=== PATIENT | male | born 1950 | race Caucasian/White ===

== ENCOUNTER 2019-09-20 10:06 | Outpatient (CLI) | payer MEDICARE, OTHER, SELFPAY ==
--- NOTE | 2019-09-20 10:18 | MR_ITS ---
WS: [id number] MRI LUMBAR SPINE WITH AND WITHOUT CONTRAST. HISTORY: Increasing lumbar pain since surgery April 2019. Status post LEFT L4-5 and L5-S1 hemilamin otomy, discectomy and foraminotomy. COMPARISON: 12/22/2018 TECHNIQUE: Sagittal and axial multisequence imaging is submitted. Sagittal and axial T1 fat sat seque nces post-ProHance 17 cc IV. Posterior lumbar alignment is negative. Advanced degenerative disc disease at L4-5 and L5-S1. There i s postoperative marrow edema along the endplates of L4 and L5. Postsurgical changes are noted in the paraspinal soft tissues at L4-5 and L5-S1. Conus terminates normally at L1. L1-L2: Mild facet joint arthropathy. No significant stenosis. L2-L3: Mild osteophytic ridging and annular disc bulging with mild ligamentum flavum arthropathy and facet arthropathy. Mild RIGHT foraminal narrowing. No significant stenosis. L3-L4: Asymmetric disc bulging and osteophytic ridging. RIGHT central, subarticular and foraminal dis c protrusions contacting the thecal sac and the nerve root. Complete obscuration of fat in the RIGHT foramen. There is mild central with moderate to severe RIGHT subarticular and RIGHT foraminal stenosi s. Similar to the prior study. Only mild narrowing of the LEFT foramen. L4-L5: There is a large extruded disc causing significant deformity of the thecal sac and the nerve r oots is complete obliteration of the fat in the LEFT subarticular recess and foramen. Disc measures 1 .9 cm superior inferior and 1.7 cm transversely. Disc is increased since the prior study. On the post contrast images there is peripheral enhancement with nonenhancement centrally. Severe subarticular re cess and LEFT foraminal stenosis. Mild RIGHT foraminal stenosis. L5-S1: Osteophytic ridging and diffuse annular disc bulging. RIGHT paracentral disc protrusion does n ot enhance. This protrusion abuts but does not displace the RIGHT S1 nerve root. There is additional soft tissue with enhancement in the LEFT paraspinal soft tissues. The LEFT S1 nerve root enhances. Postoperative enhancement in the soft tissues on the LEFT at L4-5 and L5-S1. No abscess is identified . Left-sided laminectomy defects at L4-5 are noted. MR/MR lumbar spine wo/w con [id number] IMPRESSION: 1. L4-5 and L5-S1 postsurgical changes are new since 12/22/2018. No epidural ab scess. 2. New, large extruded disc at L4-5 on the LEFT measures 1.9 x 1.7 cm with ext ension into the LEFT subarticular recess and foramen with severe stenosis. 3. No change in the RIGHT paracentral disc protrusion at L5-S1. 4. Mild enhancement of the LEFT S1 nerve root. 5. Moderate to severe RIGHT subarticular and RIGHT foraminal stenosis at L3-4 due to combination of disc disease and osteophytes. No interval change.
[2019-09-20 10:56] LABS: Blood Urea Nitrogen 6 mg/dL (8-23); Glomerular Filtration Rate 74.5 mL/min (90-130)
--- NOTE | 2019-09-20 11:00 | XR_ITS ---
WS: [id number] LATERAL LUMBAR SPINE: 3 view. Lateral radiographs are performed in upright neutral, flexion and extension to the patient's toleranc e. HISTORY: lumbar pain COMPARISON: 04/07/2019 Posterior lumbar alignment is normal. Moderate disc space narrowing from L3-4 to L5-S1 with osteophyt es and facet arthropathy. With flexion and extension no instability. XR/XR lumbar spine f/e only [id number] IMPRESSION: 1. No lumbar spine instability. 2. Advanced spondylosis from L3-4 to L5-S1.
== END 2019-09-20 10:07 | disposition home or self-care (01) ==
LOC: RADWPI 10:13
PROVIDERS: Family Provider Internal Medicine; PCP Internal Medicine; Visit Provider Specialist
DX: M47.896 Other spondylosis, lumbar region (principal); M96.1 Postlaminectomy syndrome, not elsewhere classified; M54.5 Low back pain
CPT/HCPCS: 72120; 72158; 82565; 84520; A9579

== ENCOUNTER 2019-10-03 15:45 | Observation (INO) | payer MEDICARE, OTHER, SELFPAY ==
[2019-09-30 10:19] VITALS: BMI 32.3
[2019-09-30 10:49] LABS: Anion Gap 15.3 (5-19); Blood Urea Nitrogen 13 mg/dL (8-23); Calcium 9.1 mg/dL (8.5-10.5); Carbon Dioxide 30 mmol/L (22-29); Chloride 96 mmol/L (98-107); Glomerular Filtration Rate 84.2 mL/min (90-130); Glucose 110 mg/dL (65-115); Osmolality Calculated 283 mOsm/kg (285-295); Potassium 3.3 mmol/L (3.5-5.1); Sodium 138 mmol/L (136-145)
[2019-10-03] VITALS (12 sets, daily range): BP systolic 95–140; BP diastolic 53–92; PULSE 64–84; RESP 13–22; TEMP 36.3–37.2; O2SAT 89–98
[2019-10-03] MEDS: sodium chloride 0.9% 1,000 ML 30 ML IV (11:19)
--- NOTE | 2019-10-03 11:33 | P.ANESASSM_ITS ---
Pre-Anesthetic Assessment Pre-Anesthetic Assessment: Height/Weight: Height 1.78 m Weight 102.058 kg Temp Pulse Resp BP Pulse Ox 98.9 F 66 18 140/92 98 10/03/19 11:08 10/03/19 11:08 10/03/19 11:08 10/03/19 11:08 10/03/19 11:08 Preop Diagnosis: Lumbar disc displacement, with radiculopathy Proposed Procedure: Operation Date: 10/03/19 12:20 Proposed Procedures p Right L3-L4 and re-exploration of Left L4-L5 Lumbar Laminotomy Foraminotomy Discectomy 47279 M51.16(Bilateral) - Gonzalo Rodas MD Was Beta Nicola taken within 24 hours: Yes Last intake: Intake Last Liquid Date 10/02/19 Last Liquid Time 21:00 Last Solid Date 10/02/19 Last Solid Time 20:30 Social: Social History: Alcohol and Tobacco Exam: Pre-Anes Outpt Exam: alert, oriented x 3, clear to auscultation bilaterally and regular rate & rhythm Airway: Submandibular: WNL Cervical ROM: Other (Slightly limited secondary to previous surgery) MP: 2 Additional comments: Very poor dentition, several missing and chipped, #25 loose Pulmonary: Pulmonary: COPD CV/HEM: CV/HEM: CAD and HTN : Comments: stones Hepatic: Hepatic: None reported GI: GI: None reported Metabolic: Metabolic: DM Musc/skel: Musc/skel: Lower Back Pain Neuropsych: Neuropsych: None reported Anesthetic Plan: ASA status: 3 Anesthesia: General Risk of > 500 ml blood loss (7ml/kg in children): Yes, adequate IV access and fluids planned Meds/Allergies Current Medications: Current Medications Generic Name Dose Route Start Last Admin Trade Name Freq PRN Reason Stop Dose Admin Sodium Chloride 1,000 mls @ 30 ml s/hr 10/03/19 10:30 10/03/19 11:19 Sodium Chloride 0.9% IV 10/04/19 10:29 30 mls/hr .Q24H THA Administration PFSH Anesthesia PFSH: Social History (Updated 09/28/19 @ 15:37 by HAYDEE Lezama) Smoking and tobacco status: never smoked Second hand smoke exposure: No Alcohol intake: current Alcohol intake frequency: holidays/special occasions on ly Lives independently: Yes Household members: spouse Marital status: Current occupational status: retired History of recent travel: No Data Anesthesia CBC & Chem 7: 09/30/19 10:25 Cardiac Studies: No Data to Display
--- NOTE | 2019-10-03 11:54 | P.HPUD_ITS ---
Surgery/Procedure H&P Update DATE OF PROCEDURE: October 03, 2019 DATE H&P PERFORMED: 09/28/19 H&P UPDATE INFORMATION: I have reviewed H&P completed within last 30 days and H&P is in [facility] EMR on date indicated PREOP DIAGNOSIS: Lumbar disc displacement, with radiculopathy PRIMARY INDICATION FOR PROCEDURE: pain, nerve impingement PLANNED PROCEDURE: Operation Date: 10/03/19 12:20 Proposed Procedures Right L3-L4 and re-exploration Left L4-L5 Lumbar Laminotomy Foraminotomy Discectomy 80586 M51.16(Bilateral) - Gonzalo Rodas MD
--- NOTE | 2019-10-03 12:23 | P.OP_ITS ---
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
--- NOTE | 2019-10-03 12:27 | XRR_ITS ---
PROCEDURE INFORMATION: Exam: XR Spine, 1 view; Lumbar Exam date and time: 10/03/2019 12:50 PM Age: 69 years old Clinical indication: Condition or disease; Condition/disease: Localization in surgery TECHNIQUE: Imaging protocol: XR of the spine, 1 view. Exam focused on the lumbar spine. COMPARISON: CR XR lumbar spine f/e only [id number] 09/20/2019 11:22 AM FINDINGS: Vertebrae: Moderate L3-L4 and L4-L5, severe posterior L5-S1 disc narrowing. Lumbar spine vertebral body marginal osteophytes are noted at multiple levels. Posterior marker at the tip of the L3 spinous process. Soft tissues: Normal. XR/XR lumbar spine 1V port [id number] IMPRESSION: Posterior marker at the tip of the L3 spinous process.
--- NOTE | 2019-10-03 13:11 | XRR_ITS ---
PROCEDURE INFORMATION: Exam: XR Spine, 1 view; Lumbar Exam date and time: 10/03/2019 1:24 PM Age: 69 years old Clinical indication: Condition or disease; Condition/disease: Localization in surgery TECHNIQUE: Imaging protocol: XR of the spine, 1 view. Exam focused on the lumbar spine. COMPARISON: CR XR lumbar spine 1V port [id number] 10/03/2019 12:36 PM FINDINGS: Vertebrae: Surgical instrument at the inferior margin of the lamina of L3. Soft tissues: Posterior surgical retractor. XR/XR lumbar spine 1V port [id number] IMPRESSION: Surgical instrument at the inferior margin of the lamina of L3.
--- NOTE | 2019-10-03 13:51 | SUR.OPER ---
Family Notified Of Patient's Status Via Phone.
--- NOTE | 2019-10-03 14:05 | XRR_ITS ---
PROCEDURE INFORMATION: Exam: XR Spine, 1 view; Lumbar Exam date and time: 10/03/2019 2:14 PM Age: 69 years old Clinical indication: Condition or disease; Condition/disease: Localization in surgery TECHNIQUE: Imaging protocol: XR of the lumbar spine, single lateral view. Exam focused on the lumbar spine. COMPARISON: CR XR lumbar spine 1V port [id number] 10/03/2019 1:11 PM FINDINGS: Vertebrae: The surgical instrument marker is in the L4-L5 interlaminar space. Soft tissues: Posterior surgical retractor and surgical gauze XR/XR lumbar spine 1V port [id number] IMPRESSION: The surgical instrument marker is in the L4-L5 interlaminar space.
--- NOTE | 2019-10-03 15:19 | SUR.PHASEI ---
1518 PATIENT TO PACU AT THIS TIME. RR EVEN AND UNLABORED. SPO2 96% ON RA. PATIENT DENIES PAIN. DRESSING TO LOWER BACK, CDI.
--- NOTE | 2019-10-03 15:48 | SUR.PHASEI ---
1536 PATIENT TO MED SURG. DENIES PAIN, DRESSING TO LOWER BACK, CDI. PATIENT AMBULATORY FROM [facility] TO MED SURG BED WITH STEADY GAIT.
--- NOTE | 2019-10-03 16:03 | PM.PACU ---
PACU note Post-Anesthesia Exam: awake and vital signs stable Disposition: admitted
--- NOTE | 2019-10-03 17:54 | PM.PN ---
Subjective Subjective: Interval history: Doing well, with relief of lower extremity pain reported. Vitals/I&O/Wt Last Vital Signs Temp 97.4 F L 10/03/19 16:03 Pulse 68 10/03/19 17:34 Resp 18 10/03/19 17:25 BP 113/70 10/03/19 16:03 Pulse Ox 95 10/03/19 17:25 10/03/19 10/03/19 10/03/19 06:59 14:59 22:59 Intake Total 500 / 500 Output Total 100 / 100 Balance 400 / 400 Physical Exam Const: COMMON NORMALS: no apparent distress GENERAL APPEARANCE: cooperative and comfortable Neck/C-Spine: COMMON NORMALS: supple and no JVD Resp: COMMON NORMALS: normal respiratory effort EFFORT & INSPECTION: Yes able to speak in complete sentences, No tachypneic and No respiratory distress Cardio: COMMON NORMALS: no JVD Neuro: MOTOR EXAM: strength 5/5 throughout (Bilateral lower extremities) Psych: COMMON NORMALS: mental status grossly normal and speech normal ATTITUDE: Yes calm and Yes engaged ACTIVITY/MOTOR BEHAVIOR: Yes appropriate eye contact SPEECH: Yes normal speech MOOD & AFFECT: Yes euthymic mood INSIGHT: insight good JUDGEMENT: judgment good Skin: WOUNDS: Yes surgical site (Surgical site dressing with small amount of serosanguineous drainage. Dressing changed at bedside.) Urinary Catheter Management^: F: Cath Placed During This Visit: yes, but has since been removed by the nurse Urinary Catheter Date of Insertion: 10/03/19 Urinary Catheter Time of Insertion: 13:20 Date Urinary Catheter Removed: 10/03/19 Time Urinary Catheter Discontinued: 15:10 Data : 09/30/19 10:25 A&P Assessment and plan (1) Lumbar disc disease with radiculopathy: Patient is doing well after right L3-L4 and reexploration left L4-L5 laminotomy/discectomy performed earlier today. He reports improvement in preoperative lower extremity symptoms since surgery. He has not yet been seen by physical therapy. Plan completion of perioperative intravenous antibiotics and the physical therapy postoperative spine protocol. Anticipate discharge home tomorrow. Status: Acute Code(s): M51.16 - Intervertebral disc disorders with radiculopathy, lumbar region (2) History of lumbar surgery: Status: Chronic Code(s): Z98.890 - Other specified postprocedural states Attestations Medical Necessity Statement*: Patient is appropriate for in-hospital management after lumbar discectomy surgery. Coding Level of Care Code Acute Hydrography Teacher for g Fwd Exam Detailed Diagnoses Lumbar disc disease with radiculopathy M51.16 History of lumbar surgery Z98.890
[2019-10-03] MEDS: ketorolac 30 mg/mL INJ 15 MG IVP (18:03)
[2019-10-03] MEDS: lactated ringers 1,000 ML 90 ML IV (18:04)
[2019-10-03] MEDS: docusate sodium 100 mg Capsule PO (18:06)
[2019-10-03] MEDS: carvedilol 12.5 mg Tablet PO (18:06)
--- NOTE | 2019-10-03 21:44 | PM.OP ---
Operative Report Date of procedure: October 03, 2019 Pre-op Diagnosis: Lumbar disc displacement, with radiculopathy Pre-op Diagnosis: History of lumbar discectomy. Post-op diagnosis: same Procedure Done: Left L4-L5 re-exploration laminotomy/discectomy. Right L3-L4 hemilaminotomy/discectomy. Specimens removed/disposition: L3-L4, L4-L5 disc Surgeon: Gonzalo Rodas Anesthesia: General Estimated blood loss (mL): 50 IV fluids (mL): 1,200 Urine output (mL): 50 Complications: None Condition: stable Disposition: PACU Brief History: The patient is a 69-year-old male with symptomatic, radiographically confirmed lumbar disc displacements and facet arthropathy. Imaging studies demonstrated dominant right-sided encroachment at L3-L4 and a recurrent disc herniation at L4-L5 on the left. After review of the options with the risks/potential benefits/rationale for each, the patient requested to proceed with surgical decompression at L3-L4 and L4-L5. Procedure: After routine preoperative evaluation and informed consent were obtained, the patient was taken to the Operating Room and placed under general endotracheal anesthesia. He was rotated onto the Operating Room table in the modified knee-chest position with the aid of the O[place]ana spine frame. The lumbosacral area was prepared with hair clippers. A proposed midline skin incision was marked with a sterile skin marker, following localization with intraoperative radiography. The lumbosacral area was scrubbed with Betadine and prepped with DuraPrep. Sterile towels and drapes were applied, and an Ioban surgical barrier was placed. The proposed incision site was infiltrated with 1% Xylocaine with Epinephrine. A skin incision was made and carried down into the subcutaneous tissues. The lumbodorsal fascia was identified and divided in the midline. Subperiosteal dissection was carried down along the lamina of L3 and L4 on the right. Deep self-retaining retractor was placed. Intraoperative radiography verified the desired surgical level. A laminotomy was fashioned across the L3-L4 interspace with Leksell and Kerrison rongeurs. Ligamentum flavum was resected at the base of the laminotomy site with Kerrison rongeurs. Ligament resection was extended across the midline and into the lateral recess. A limited resection of the medial aspect of the facet joint was also performed to further decompress the lateral recess. The neural foramen was identified and enlarged in its medial extent with Kerrison rongeurs. The thecal sac was retracted from lateral to medial with the nerve root retractor. Residual neural impingement and lateral recess/foraminal encroachment were noted related to disc displacement. The disc annulus was incised in the area of most prominent disc encroachment. Disc herniation was addressed with various curettes and pituitary rongeurs. Once the decompression was felt to be adequate, the dura was covered with thrombin-soaked Gelfoam and a Cottonoid. The retractors were removed and repositioned to the contralateral side, where a left subperiosteal dissection was performed across the L4-L5 interspace. The prior laminotomy was enlarged with Leksell and Kerrison rongeurs. Ligamentum flavum was resected at the base of the laminotomy site with extension into the lateral recess. A limited resection of the medial aspect of the facet joint was performed with Kerrison rongeurs. The neural foramen was enlarged in its medial extent. Epidural adhesions were encountered. Retraction of the thecal sac from lateral to medial with the nerve root retractor allowed visualization of a large disc herniation, with cephalad extrusion. Multiple large disc fragments were removed with various curettes and rongeurs. Following discectomy and dorsal decompression with laminotomy/foraminotomy, no residual neural impingement was identified within the central canal, lateral recesses or neural foramina. Retractors were repositioned to maximize the exposure bilaterally. The previously placed Gelfoam and Cottonoid were removed, and the wound was copiously irrigated with sterile saline and antibiotic irrigation. Decompression of the neural elements at the laminotomy sites was again verified with the Yury dental instrument. A thin layer of SurgiFlo hemostatic matrix was placed over the dura at both laminotomy sites. Wound closure was then performed in multiple layers with 2-0 Vicryl Plus simple interrupted closure of the lumbodorsal fascia, superficial fascia and deep dermis as separate layers. Final skin closure was performed with 3-0 Vicryl Plus in a running subcuticular pattern. Steri-Strips were applied, and a sterile dressing was placed. He was rotated onto the Recovery Room cart in the supine position, and extubated by Anesthesia personnel. He tolerated the procedure well. All sponge, needle, and instrument counts were correct at the completion of the procedure.
[2019-10-03] MEDS: HYDROcodone-acetaminophen 5-325 mg Tablet PO (22:15)
[2019-10-04] VITALS: BP 136/73; PULSE 74; RESP 18; TEMP 37.2; O2SAT 91
[2019-10-04] MEDS: ketorolac 30 mg/mL INJ 15 MG IVP ×3 (00:47→11:23)
[2019-10-04] MEDS: HYDROcodone-acetaminophen 5-325 mg Tablet PO ×2 (02:09→08:12)
[2019-10-04 05:09] VITALS: BP 130/73; PULSE 75; RESP 18; TEMP 36.9; O2SAT 90
[2019-10-04] MEDS: lactated ringers 1,000 ML 90 ML IV (05:42)
[2019-10-04] MEDS: isosorbide mononitrate ER 30 mg Tablet PO (05:44)
[2019-10-04] MEDS: FUROsemide 20 mg Tablet PO (05:44)
[2019-10-04 08:00] VITALS: BP 122/61; PULSE 74; RESP 18; TEMP 36.9; O2SAT 92
[2019-10-04] MEDS: carvedilol 12.5 mg Tablet PO (08:12)
[2019-10-04] MEDS: docusate sodium 100 mg Capsule PO (08:12)
[2019-10-04] MEDS: duloxetine 60 mg Capsule PO (08:12)
[2019-10-04] MEDS: amlodipine 5 mg Tablet PO (08:13)
[2019-10-04] MEDS: tamsulosin 0.4 mg Capsule PO (08:13)
[2019-10-04] MEDS: pantoprazole DR 40 mg Tablet PO (08:13)
--- NOTE | 2019-10-04 09:06 | PM.DCS ---
Discharge Providers Date of Admission: 10/03/19 15:45 Date of Discharge: October 04, 2019 Attending Provider at Admission: Gonzalo Rodas MD Attending Provider at Discharge: Gonzalo Rodas MD Primary Care Provider: Eh Haddad MD Diagnoses at Discharge Discharge Diagnosis (1) Lumbar disc disease with radiculopathy: Status: Acute (2) History of lumbar surgery: Status: Chronic Problem details: Left L4-L5, L5-S1 hemilaminotomy/discectomy/foraminotomy; 04/07/2019; [facility] Reason for Visit Reason for Visit: Reason For Visit: Lumbar disc disease with radiculopathy Brief History: The patient is a 69-year-old male with symptomatic, radiographically confirmed lumbar disc displacements and facet arthropathy. Imaging studies demonstrated dominant right-sided encroachment at L3-L4 and a recurrent disc herniation at L4-L5 on the left. He had undergone left L4-L5, L5-S1 hemilaminotomy/discectomy on 04/07/2019, with improvement in preoperative symptoms noted following surgery. Recurrent/residual/persistent symptoms prompted follow-up imaging and identification of the aforementioned pathology. After review of the options with the risks/potential benefits/rationale for each, the patient requested to proceed with surgical decompression at L3-L4 and L4-L5. Hospital Course Hospital Course: The patient underwent reexploration left L4-L5 laminotomy/discectomy and right L3-L4 hemilaminotomy/discectomy on 10/03/2019. He tolerated the procedure well. He noted improvement/relief of preoperative lower extremity symptoms following surgery. Incisional pain was adequately controlled with medications. He completed perioperative intravenous antibiotics, and the physical therapy postoperative spine protocol. He was ambulatory, voiding, and tolerating regular diet prior to discharge home on postoperative day #1 Physical Exam Const: COMMON NORMALS: no apparent distress GENERAL APPEARANCE: cooperative and comfortable Neck/C-Spine: COMMON NORMALS: supple and no JVD Resp: COMMON NORMALS: normal respiratory effort EFFORT & INSPECTION: Yes able to speak in complete sentences, No tachypneic and No stridor Cardio: COMMON NORMALS: no JVD Back/Pelvis: BACK IMAGE (MALE): 1. Surgical scar Extremity: COMMON NORMALS: no calf tenderness Neuro: SPEECH: speech normal GAIT: Yes other MOTOR EXAM: strength 5/5 throughout (Bilateral lower extremities) Psych: COMMON NORMALS: mental status grossly normal, thought process normal and speech normal ATTITUDE: Yes calm and Yes engaged ACTIVITY/MOTOR BEHAVIOR: Yes appropriate eye contact SPEECH: Yes normal speech MOOD & AFFECT: Yes euthymic mood THOUGHT PROCESS: normal thought process INSIGHT: insight good JUDGEMENT: judgment good Skin: WOUNDS: Yes surgical site (Lumbar surgical site dressing clean/dry/intact.) Urinary Catheter Management^: F: Cath Placed During This Visit: yes, but has since been removed by the nurse Urinary Catheter Date of Insertion: 10/03/19 Urinary Catheter Time of Insertion: 13:20 Date Urinary Catheter Removed: 10/03/19 Time Urinary Catheter Discontinued: 15:10 Discharge Data Data Completed and Pending: Completed Studies During Hospitalization Category Date Time Status XR lumbar spine 1 view portable [XR lumbar spine 1V Exams 10/03/19 12:27 Completed port [id number]] Routi ne XR lumbar spine 1 view portable [XR lumbar spine 1V Exams 10/03/19 13:11 Completed port [id number]] Routi ne XR lumbar spine 1 view portable [XR lumbar spine 1V Exams 10/03/19 14:05 Completed port [id number]] Routi ne Pathology: Surgic al [PTH] Routine Pth 10/03/19 15:05 Completed Procedures Performed: Reexploration left L4-L5 laminotomy/discectomy. Right L3-L4 hemilaminotomy/discectomy. Intravenous antibiotics. Physical therapy. Vitals: Last Vital Signs Temp 98.2 F 10/04/19 11:44 Pulse 73 10/04/19 11:44 Resp 16 10/04/19 11:44 BP 117/64 10/04/19 11:44 Pulse Ox 90 10/04/19 11:44 Discharge Plan Discharge Patient Disposition: Home, Self-Care Condition: Stable Prescriptions: [place] 10-325 mg tablet 1 tab PO Q4H MDD 5 tabs PRN (Reason: pain) Qty: 30 RF: 0 Continued isosorbide mononitrate 30 mg tablet extended release 24 hr 30 mg PO QAM RF: 0 potassium chloride 10 mEq capsule, extended release 10 meq PO DAILY RF: 0 furosemide [Lasix] 20 mg tablet 20 mg PO QAM RF: 0 tamsulosin [Flomax] 0.4 mg capsule 0.4 mg PO DAILY RF: 0 amlodipine 10 mg tablet 5 mg PO DAILY RF: 0 pantoprazole 40 mg tablet,delayed release (DR/EC) 40 mg PO DAILY RF: 0 enalapril maleate 20 mg tablet 40 mg PO DAILY RF: 0 carvedilol 12.5 mg tablet 12.5 mg PO BID Qty: 180 RF: 4 duloxetine 30 mg capsule,delayed release(DR/EC) 60 mg PO DAILY RF: 0 Held aspirin 325 mg tablet 325 mg PO DAILY RF: 0 Hold Instructions: Resume on 10/05/19. Discharge Orders: Discharge Order (Routine); Ordered 10/04/19 Ordered By: Gonzalo Rodas Referrals: Gonzalo Rodas MD [Physician] - 2 weeks Discharge Diet: Regular Discharge Activity: Limit activity as instructed Patient Instructions: Hydrocodone/Acetaminophen (By mouth), Surgical Site Infections (GEN), Degenerative Disc Disease (DC) Activity Restrictions/Additional Instructions: Activity - No driving until office followup visit - No lifting/pushing/pulling over 10 pounds - Avoid twisting or bending - Walking is encouraged - Home exercise per physical therapist - You may engage in sexual intercourse at any time as long as it is comfortable for you - Check with your doctor before returning to work. Notify your doctor if you develop: - temperature of 101.5 degrees F. or higher - redness or swelling of the incision - Foul drainage - increasing pain - increasing numbness or tingling in the arms or legs - New or increasing problems with vision, balance, memory, speaking, nausea or vomiting Hygiene: - Showering is okay - No tub baths or soaking Other: Remove outer bandage 3 days after surgery. If you have paper strips, leave in place until they fall off on their own. If you have stitches, keep your incision dry until the stitches are removed. Your doctor's office is available to answer any questions from 7 AM to 5:00 PM, Thursday through at [phone]. After hours, go to the emergency room at [facility] or call 911 for assistance. Discharge Date/Time: 10/04/19 12:11 Discharge Attestations Time Spent in Discharge Care*: other (postop global) Quality Metrics Clinical Quality Measures During this hospital stay, did patient experience: None Coding Level of Care Code Acute Bundling Machine Operator for 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 Diagnoses Lumbar disc disease with radiculopathy M51.16 History of lumbar surgery Z98.890
--- NOTE | 2019-10-04 10:19 | ANE.PACU2 ---
 Inpatient post-anesthesia follow up: Airway intact: Yes Vital signs: Temperature 98.5 F Pulse Rate 74 Respiratory Rate 18 Blood Pressure 122/61 Pulse Oximetry 92 Oxygen Delivery Me thod Room Air Oxygen Flow Rate Fraction of Inspir ed Oxygen Hydration adequate: Yes Nausea and vomiting: No Pain level: 6 Mental status: Baseline
[2019-10-04 11:36] VITALS: BP 117/64; PULSE 73; RESP 16; TEMP 36.8; O2SAT 90
[2019-10-04 11:44] VITALS: BP 117/64; PULSE 73; RESP 16; TEMP 36.8; O2SAT 90
== END 2019-10-04 12:11 | disposition home or self-care (01) ==
LOC: MEDSURG 15:55
PROVIDERS: Anesthesiology; Admitting Provider Specialist; Family Provider Internal Medicine; PCP Internal Medicine; Visit Provider Specialist
PROC: (CPT 63030; principal; 2019-10-03 12:20)
DX: M51.16 Intervertebral disc disorders with radiculopathy, lumbar region (principal); J44.9 Chronic obstructive pulmonary disease, unspecified; I25.10 Atherosclerotic heart disease of native coronary artery without angina pectoris; I10 Essential (primary) hypertension; E11.9 Type 2 diabetes mellitus without complications
CPT/HCPCS: 63030; 63035; 12345; 36415; 51702; 72020; 73221; 80048; 88304; 96361; 96365; 96375; 97110; 97161; G0378; J0131; J0690; J1100; J1885; J2001; J2405; J2704; J3010; J3490; J7030

== ENCOUNTER 2020-08-31 07:07 | Outpatient (CLI) | payer MEDICARE, OTHER, SELFPAY ==
--- NOTE | 2020-08-31 07:16 | XR_ITS ---
WS: [id number] KUB, AP view, 08/31/2020 Clinical Data: STONES Comparison: KUB, 04/26/2019. Findings: Bilateral renal calculi are seen. Right renal calculus has not changed. A cluster of left renal calculi has increased in size and now measures 2.5 cm.. There is a phlebolith on the right side of the true pelvis. There are clips in the right upper quadrant from a cholecystec bhavna. There is degenerative change and levoscoliosis of the lumbar spine. XR/XR KUB 95026 Impression: 1. No change in right renal calculus. 2. Increase in size of cluster of left renal calculi.
== END 2020-08-31 07:08 | disposition home or self-care (01) ==
PROVIDERS: PCP Internal Medicine; Visit Provider Urology
DX: N20.0 Calculus of kidney (principal)
CPT/HCPCS: 74018; 81003

== ENCOUNTER → 2020-11-28 15:36 | Outpatient (BNVA) | payer MEDICARE, OTHER, SELFPAY | PROVIDERS: PCP Internal Medicine; Visit Provider Internal Medicine | DX: R63.4 Abnormal weight loss (principal); Z01.812 Encounter for preprocedural laboratory examination; G47.00 Insomnia, unspecified; R10.13 Epigastric pain | CPT/HCPCS: 80053; 83550; 84443; 85025 ==

== ENCOUNTER → 2020-12-03 14:23 | Outpatient (BNVA) | payer MEDICARE, OTHER, SELFPAY | PROVIDERS: PCP Internal Medicine; Visit Provider Internal Medicine | DX: R63.4 Abnormal weight loss (principal); Z01.812 Encounter for preprocedural laboratory examination; Z20.822 Contact with and (suspected) exposure to COVID-19 | CPT/HCPCS: 87635 ==

== ENCOUNTER 2020-12-07 07:40 | Day surgery (SDC) | payer MEDICARE, OTHER, SELFPAY ==
[2020-12-07 08:03] VITALS: BP 148/79; PULSE 64; RESP 18; TEMP 36.7; O2SAT 98
[2020-12-07] MEDS: sodium chloride 0.9% 1,000 ML 30 ML IV (08:14)
--- NOTE | 2020-12-07 08:57 | ANES.PREANE2 ---
Pre-Anesthetic Assessment Pre-Anesthetic Assessment: Height/Weight: Height 1.78 m Weight 92.986 kg Temp Pulse Resp BP Pulse Ox 98.1 F 64 18 148/79 98 12/07/20 08:03 12/07/20 08:03 12/07/20 08:03 12/07/20 08:03 12/07/20 08:03 Preop Diagnosis: WL Proposed Procedure: Operation Date: 12/07/20 09:00 Proposed Procedures p EGD 92077 R63.4 54404 D50.9(Not Applicable) - Eh Haddad MD s Colonoscopy(Not Applicable) - Eh Haddad MD Familial anesthetic complications: none Was Beta Nicola taken within 24 hours: Yes Was Clonidine taken within 24 hours: N/A Last intake: Intake Last Liquid Date 12/06/20 Last Liquid Time 23:30 Last Solid Date 12/12/20 Last Solid Time 17:00 Social: Social History: Alcohol and No tobacco Comment: daily beer Exam: Pre-Anes Outpt Exam: alert and oriented x 3 Additional Exam Findings (including area of procedure): npo since mn Airway: Submandibular: WNL Cervical ROM: WNL (limited extension) MP: 4 Dentition: Chipped and Loose Pulmonary: Pulmonary: Cough CV/HEM: CV/HEM: CAD and HTN : Comments: kidney stones Hepatic: Hepatic: None reported GI: GI: None reported Metabolic: Metabolic: Morbid obesity Musc/skel: Musc/skel: Lower Back Pain and OA/DJD Comments: neck fusion Neuropsych: Neuropsych: None reported Anesthetic Plan: ASA status: 3 Anesthesia: Anesthesia Evaluation and MAC Risk of > 500 ml blood loss (7ml/kg in children): No Meds/Allergies Current Medications: Current Medications Generic Name Dose Route Start Last Admin Trade Name Freq PRN Reason Stop Dose Admin Sodium Chloride 1,000 mls @ 30 ml s/hr 12/07/20 08:00 12/07/20 08:14 Sodium Chloride 0.9% IV 30 mls/hr .Q24H THA Administration PFSH Anesthesia PFSH: Medical History Atypical chest pain Bilateral renal stones Cardiac ischemia Erectile dysfunction Essential hypertension Gout Lumbar disc disease with radiculopathy Lumbar spinal stenosis Mixed hyperlipidemia Nephrolithiasis Pleurisy Pure hypercholesterolemia Shortness of breath Surgical History H/O carpal tunnel repair H/O hernia repair H/O lithotripsy History of cataract surgery History of fusion of cervical spine C4-C7 ACDFF, with C6 corpectomy; 2002; [facility] C3-C4 ACDFF; 01/28/2018; [facility] History of lumbar surgery Left L4-L5, L5-S1 hemilaminotomy/discectomy/foraminotomy; 04/07/2019; [facility]. Right L3-L4 and reexploration left L4-L5 laminotomy/discectomy, 10/03/2019, [facility] [place]. Hx of cholecystectomy Family History Brother Cancer Stomach Father Emphysema lung Lung disease Cancer Mother Hypertension Cancer Diabetes Denies family history of CAD (coronary artery disease) Clotting disorder Dementia Chronic kidney disease (CKD) Suicide Anesthesia complication Bleeding disorder Stroke Social History Smoking and tobacco status: never smoked Second hand smoke exposure: No Alcohol intake: current Alcohol intake frequency: few times a week Lives independently: Yes Household members: spouse Marital status: Current occupational status: retired History of recent travel: No Data Anesthesia Cardiac Studies: No Data to Display
--- NOTE | 2020-12-07 09:03 | W.PM.OPSFHP ---
Same Day Surgery H&P Indication for Procedure/HPI DATE OF PROCEDURE: December 07, 2020 CHIEF COMPLAINT/INDICATIONFOR SURGICAL PROCEDURE: Profound iron deficient anemia PREOP DIAGNOSIS: WL PLANNED PROCEDRUE: Operation Date: 12/07/20 09:00 Proposed Procedures p EGD 80964 R63.4 36439 D50.9(Not Applicable) - Eh Haddad MD s Colonoscopy(Not Applicable) - Eh Haddad MD Medications/Allergies* Home Medications Medication Instructions Recorded Confirmed Type aspirin 325 mg tablet 325 mg PO DAILY tab 08/10/19 12/07/20 History Allergies/Adverse Reactions Allergy/AdvReac Type Severity Reaction Status Date / Time No Known Allergies Allergy Verified 12/07/20 07:57 Current Medications: Generic Name Dose Route Start Last Admin Trade Name Freq PRN Reason Stop Dose Admin Sodium Chloride 1,000 mls @ 30 mls/hr 12/07/20 08:00 12/07/20 08:14 Sodium Chloride 0.9% IV 30 mls/hr .Q24H THA Administration Pertinent History/Comorbid Conditions* Medical History (Updated 11/29/20 @ 14:13 by Lulú Encarnacion MD) Atypical chest pain Bilateral renal stones Cardiac ischemia Erectile dysfunction Essential hypertension Gout Lumbar disc disease with radiculopathy Lumbar spinal stenosis Mixed hyperlipidemia Nephrolithiasis Pleurisy Pure hypercholesterolemia Shortness of breath Surgical History (Updated 11/23/19 @ 16:21 by Gonzalo Rodas MD) H/O carpal tunnel repair H/O hernia repair H/O lithotripsy History of cataract surgery History of fusion of cervical spine C4-C7 ACDFF, with C6 corpectomy; 2002; [facility] C3-C4 ACDFF; 01/28/2018; [facility] History of lumbar surgery Left L4-L5, L5-S1 hemilaminotomy/discectomy/foraminotomy; 04/07/2019; [facility]. Right L3-L4 and reexploration left L4-L5 laminotomy/discectomy, 10/03/2019, [facility] [place] Hx of cholecystectomy Family History (Updated 11/29/20 @ 10:49 by Luisana Julien RN) Father Diabetes Mother Emphysema lung Father Lung disease Father Cancer Brother Stomach Father Mother Hypertension Mother Denies family history of CAD (coronary artery disease) Clotting disorder Dementia Chronic kidney disease (CKD) Suicide Anesthesia complication Bleeding disorder Stroke Social History Smoking and tobacco status: never smoked Second hand smoke exposure: No Alcohol intake: current Alcohol intake frequency: few times a week Lives independently: Yes Household members: spouse Marital status: Current occupational status: retired History of recent travel: No Pertinent Exam Findings alert, oriented x 3, clear to auscultation bilaterally, regular rate & rhythm, operative site marked and procedure specific exam findings Recommendations Surgery/Procedure today Coding Level of Care Code Acute 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
--- NOTE | 2020-12-07 09:31 | CT_ITS ---
WS: [id number] CT ABDOMEN AND PELVIS WITH CONTRAST HISTORY: colon mass TECHNIQUE: Imaging performed of the abdomen and pelvis with IV contrast. Single phase imaging of the abdomen. Coronal and sagittal reformats are submitted. All CT scans at [facility] use at least one of these dose optimization techniques: automated exposure control; mA and/or kV adjustment per patient size (includes targeted exams where dose is matched to clinical indication); or iterativ e reconstruction. IV CONTRAST: Omnipaque 300; 95 mL IV. Oral contrast: Yes. DLP: 1958.59 mGy.cm COMPARISON: 11/22/2015 Lower thorax: Benign granuloma at the RIGHT lung base. Moderately enlarged heart. Small hiatal hernia . Liver/biliary system: Liver is moderately enlarged. There is an area of decreased attenuation along t he gallbladder fossa which may be an area of fatty sparing. No bile duct dilatation. Portal vein is n ormal. Gallbladder: Status post cholecystectomy. Pancreas: Normal size pancreas and pancreatic duct. No adjacent inflammation. Spleen: Normal size spleen with several granulomata. Adjacent splenule. Adrenal glands: Normal. Right kidney: Normal size kidney. Nonobstructing calcification lower pole measures 9 mm. Left kidney: Normal size. Several calcifications which are nonobstructing in the renal pelvis. The la rgest measures 10 mm and may be 2 adjacent stones in the lower pole. Aorta: Mild atherosclerosis with no aneurysm. Lymphadenopathy: Very tiny lymph nodes adjacent to the hepatic flexure and in the mesentery. Several lymph nodes are noted adjacent to the SMV. Free fluid: None. GI tract: Long segment mass centered at the hepatic flexure extends over a length of 8.8 cm with sign ificant narrowing of the lumen. Adjacent soft tissue stranding and a few small lymph nodes. There is an additional area of significant mucosal thickening at the cecum which may extend into the distal te rminal ileum. There are also small adjacent lymph nodes in the RIGHT lower quadrant. The appendix is not definitely visualized. Abdominal wall: Unremarkable abdominal wall. No hernia. Pelvis: Normally distended urinary bladder. Prostate gland contains central calcifications. Bones: Advanced degenerative disc disease at L3-4, L4-5 and L5-S1. CT/CT abdomen pelvis w con* [id number] IMPRESSION: 1. Long segment mass in the RIGHT hepatic flexure with significant narrowing o f the lumen and adjacent small lymph nodes consistent with neoplasm until prove n otherwise. 2. Additional mucosal thickening involving the cecum and distal terminal ileum . Suspicious for additional mass versus inflammatory mucosal thickening. 3. There are a few scattered areas of decreased attenuation in the liver which are nonspecific. Probably due to hepatic steatosis but early metastatic sites are not excluded. PET/CT imaging or MRI with contrast may be helpful. 4. Hepatomegaly and hepatic steatosis. 5. Prior cholecystectomy. 6. Bilateral nonobstructing renal calculi.
[2020-12-07 09:34] VITALS: BP 112/66; PULSE 73; RESP 16; TEMP 36.2; O2SAT 96
[2020-12-07 09:54] VITALS: BP 115/86; PULSE 61; RESP 16; O2SAT 93
[2020-12-07] MEDS: iron sucrose 500 MG in sodium chloride 0.9% 250 ML 68.8 MG IV (10:47)
[2020-12-07] MEDS: iohexol 300 mg/mL 50 mL Btl PO (12:01)
[2020-12-07] MEDS: iohexol 300 mg/mL 100 mL Btl IV (12:02)
--- NOTE | 2020-12-07 13:17 | ANE.PACU2 ---
Inpatient post-anesthesia follow up: Airway intact: Yes Vital signs: Temperature 97.2 F Pulse Rate 61 Respiratory Rate 16 Blood Pressure 115/86 Pulse Oximetry 93 Oxygen Delivery Me thod Room Air Oxygen Flow Rate Fraction of Inspir ed Oxygen Hydration adequate: Yes Nausea and vomiting: No Pain level: 1 Mental status: Baseline
--- NOTE | 2020-12-07 14:29 | PC.NURSE ---
Dr. Haddad ordered a CT scan with contrast and a Venofer infusion in Phase II recovery. Pt out of phase II recovery at 1022 and into GI specials for CT scan and infusion at 1025. Venofer infusion started around 1030. Pt to CT at 1145. Pt returned to GI from CT around 1205. Venofer infusion continued. Venofer completed around 1420. Pt tolerated well. IV removed. Pt escorted off unit ambulatory and picked up by donell.
[2020-12-14 09:36] LABS: Miscellaneous Test See Scanned Lab Rpt
== END 2020-12-07 14:25 | disposition home or self-care (01) ==
PROVIDERS: PCP Internal Medicine; Visit Provider Internal Medicine
PROC: 0DJ08ZZ Inspection of Upper Intestinal Tract, Via Natural or Artificial Opening Endoscopic (ICD-10-PCS; CPT 43235; principal; 2020-12-07 09:00)
PROC: 0DJD8ZZ Inspection of Lower Intestinal Tract, Via Natural or Artificial Opening Endoscopic (ICD-10-PCS; CPT 45378; 2020-12-07 09:00)
DX: C18.9 Malignant neoplasm of colon, unspecified (principal); D50.9 Iron deficiency anemia, unspecified; Z79.82 Long term (current) use of aspirin; I10 Essential (primary) hypertension; E78.2 Mixed hyperlipidemia; E78.00 Pure hypercholesterolemia, unspecified; Z98.1 Arthrodesis status; I25.10 Atherosclerotic heart disease of native coronary artery without angina pectoris; E66.01 Morbid (severe) obesity due to excess calories; Z68.29 Body mass index [BMI] 29.0-29.9, adult
CPT/HCPCS: 43235; 45380; 74177; 88305; 88341; 88342; 96365; 96366; J1756; J2704; J7030; J7050; Q9967

== ENCOUNTER → 2020-12-14 14:33 | Outpatient (BNVA) | payer MEDICARE, OTHER, SELFPAY | PROVIDERS: PCP Internal Medicine; Visit Provider Surgery | DX: Z01.812 Encounter for preprocedural laboratory examination (principal); Z20.822 Contact with and (suspected) exposure to COVID-19 | CPT/HCPCS: 87635 ==

== ENCOUNTER 2020-12-17 08:45 | Inpatient (IN) | payer MEDICARE, OTHER, SELFPAY ==
[2020-12-14 13:24] VITALS: BMI 29.4
[2020-12-17] VITALS (17 sets, daily range): BP systolic 108–161; BP diastolic 63–89; PULSE 63–80; RESP 12–20; TEMP 36.3–37.2; O2SAT 94–100
[2020-12-17] MEDS: sodium chloride 0.9% 1,000 ML 30 ML IV (09:21)
--- NOTE | 2020-12-17 09:21 | ECG_ITS ---
[facility] ED Test Date: 2020-12-17 Pat Name: Daniel Patel Department: Room: 272 Gender: Male Title I Assistant: : 1950 Requested By: Viridiana Moses Order Number: [id number] Martinez MD: Wendy Suárez M.D. Measurements Intervals [place] Rate: 53 P: 80 [place]: 184 QRS: 16 QRSD: 107 T: -5 QT: 464 QTc: 439 Interpretive Statements SINUS BRADYCARDIA POSSIBLE INFERIOR MYOCARDIAL INFARCTION [30 ms Q WAVE IN II/aVF], OF INDETERMINATE AGE Compared to ECG 04/05/2019 11:26:52 Myocardial infarct finding now present Sinus rhythm no longer present Electronically Signed On 12-18-2020 18:42:01 CDT by Wendy Suárez M.D. [email or web address]
[2020-12-17 09:24] LABS: Basophils % 0.5 %; Eosinophils # 0.4 10^3/uL (0.0-0.8); Eosinophils % 4.8 %; Hematocrit 32.7 % (42.0-52.0); Hemoglobin 9.2 g/dL (11.7-16.6); Lymphocytes # 1.3 10^3/uL (0.8-4.8); Lymphocytes % 15.8 %; Mean Corpuscular HGB Conc 28.1 g/dL (30.0-36.0); Mean Corpuscular Hemoglobin 20.7 pg (28.0-34.0); Mean Corpuscular Volume 73.5 fL (80-94); Mean Platelet Volume 9.8 fL (7.4-10.4); Monocytes # 0.7 10^3/uL (0.2-0.9); Monocytes % 8.8 %; Neutrophils # 5.53 10^3/uL (1.8-7.7); Neutrophils % 69.8 %; Nucleated Red Blood Cells % 0 %; Platelet Count 250 10^3/cmm (130-400); Red Blood Count 4.45 10^6/uL (4.1-5.3); Red Cell Distribution Width 25.1 % (12.1-15.1); White Blood Count 7.9 10^3/uL (4.0-10.0)
--- NOTE | 2020-12-17 09:46 | P.ANESASSM_ITS ---
Pre-Anesthetic Assessment Pre-Anesthetic Assessment: Height/Weight: Height 1.78 m Weight 92.986 kg Temp Pulse Resp BP Pulse Ox 97.4 F L 65 18 161/84 98 12/17/20 09:16 12/17/20 09:16 12/17/20 09:16 12/17/20 09:16 12/17/20 09:16 Preop Diagnosis: colon cancer Proposed Procedure: Operation Date: 12/17/20 10:25 Proposed Procedures p 29197 laparoscopic possible open extended right hemicolectomy k63.89(Right) - Alvaro Alvarado MD Familial anesthetic complications: none Was Beta Nicola taken within 24 hour s: Yes Was Clonidine taken within 24 hours: N/A Last intake: Intake Last Liquid Date 12/16/20 Last Solid Date 12/15/20 Social: Social History: Alcohol and Tobacco Comment: chews tobacco, last time at noon yesterday. Drinks 1-2 beers donte Exam: Pre-Anes Outpt Exam: alert, oriented x 3, clear to auscultation bilaterally and regular rate & rhythm Airway: Cervical ROM: WNL MP: 3 Dentition: Chipped CV/HEM: CV/HEM: Anemia, Angina (Stable) and HTN Comments: States doing well from cardiac perspective, able to walk around w/out chest pain or SOB 10/21/17 Echo Normal left ventricular size and systolic function, EF 59 %. Mild hypokinesia of the apical septum.Grade I/IV diastolic dysfunction (abnormal relaxation filling pattern), normal to mildly elevated filling pressures. Minimally thickened aortic and mitral valves. Trace of mitral and tricuspid regurgitation. Moderate pulmonary hypertension with estimated pulmonary artery peak systolic pressure of 59 mmHg There is no pericardial effusion. There are no intracardiac masses. No previous study is available for comparison. LMM STRESS 10/02/2017 No significant EKG changes with the LexiScan infusion 2. No LexiScan induced chest pain or cardiac arrhythmia 3. Normal blood pressure and heart rate response Myocardial perfusion imaging revealing a small area of persistent, decreased tracer uptake in the mid and apical inferolateral wall region, suggestive of myocardial scarring versus attenuation artifact. LV ejection fraction was estimated to be 70% LV wall motion analysis revealed no gross wall motion abnormalities Normal left ventricular volume. No significant coronary ischemia, based the above findings LEFT HEARTH CATHETERIZATION 02/03/16 Mild disease in the nondominant right coronary artery Medium to large caliber LAD and circumflex arteries with extremely short left main Normal left ventricular ejection fraction of 55% Slightly elevated LVEDP ECHOCARDIOGRAPHY, COMPLETE 01/17/16 Normal left ventricular size and systolic function, EF 68%. No regional wall motion abnormalities. Normal diastolic function. There is no pericardial effusion. There are no intracardiac masses. Mild mitral with a trace of tricuspid valve regurgitation. Mild pulmonary hypertension, estimated peak pulmonary artery pressure of 42 mmHg Thickened aortic and mitral valves. Mildly increased left atrial size. Compared to the previous study from 12/09/2007, there may not be a significant change GI: GI: GERD Metabolic: Metabolic: Hyperlipidemia Anesthetic Plan: ASA status: 3 Anesthesia: General Risk of > 500 ml blo od loss (7ml/kg in children): No Meds/Allergies Current Medications: Current Medications Generic Name Dose Route Start Last Admin Trade Name Freq PRN Reason Stop Dose Admin Sodium Chloride 1,000 mls @ 30 ml s/hr 12/17/20 09:00 12/17/20 09:21 Sodium Chloride 0.9% IV 12/18/20 08:59 30 mls/hr .Q24H THA Administration PFSH Anesthesia PFSH: Medical History (Updated 12/10/20 @ 15:37 by Alvaro Alvarado MD) Cardiac ischemia Erectile dysfunction Essential hypertension Gout Lumbar disc disease with radiculopathy Mixed hyperlipidemia Nephrolithiasis Pure hypercholesterolemia Surgical History (Updated 12/10/20 @ 15:37 by Alvaro Alvarado MD) H/O carpal tunnel repair H/O esophagogastroduodenoscopy H/O lithotripsy History of cataract surgery History of fusion of cervical spine C4-C7 ACDFF, with C6 corpectomy; 2002; [facility] C3-C4 ACDFF; 01/28/2018; [facility] History of lumbar surgery Left L4-L5, L5-S1 hemilaminotomy/discectomy/foraminotomy; 04/07/2019; [facility]. Right L3-L4 and reexploration left L4-L5 [place]otomy[place]ctomy, [place] [facility] [place]x of cardiac catheterization Hx of cholecystectomy S/P bilateral inguinal hernia repair Status post colonoscopy Family History Brother Cancer Stomach Father Emphysema lung Lung disease Cancer Mother Hypertension Cancer Diabetes Denies family history of CAD (coronary artery disease) Clotting disorder Dementia Chronic kidney disease (CKD) Suicide Anesthesia complication Bleeding disorder Stroke Social History Smoking and tobacco status: never smoked Second hand smoke exposure: No Alcohol intake: current Alcohol intake frequency: few times a week Lives independently: Yes Household members: spouse Marital status: Current occupational status: retired History of recent travel: No Data Anesthesia CBC & Chem 7: 12/17/20 09:09 Other Labs: Laboratory Results - last 48 hr 12/17/20 09:09 WBC 7.9 RBC 4.45 Hgb 9.2 L Hct 32.7 L MCV 73.5 L MCH 20.7 L MCHC 28.1 L RDW 25.1 H Plt Count 250 MPV 9.8 Neut % (Auto) 69.8 Lymph % (Auto) 15.8 Hardy % (Auto) 8.8 Eos % (Auto) 4.8 Baso % (Auto) 0.5 Neut # (Auto) 5.53 Lymph # (Auto) 1.3 Hardy # (Auto) 0.7 Eos # (Auto) 0.4 Baso # (Auto) 0.0 Nucleated RBC % (auto) 0 Nucleated RBCs # 0.0 Cardiac Studies: No Data to Display
[2020-12-17 09:51] LABS: Carcinoembryonic Antigen 2.8 ng/mL (0.0-4.7)
--- NOTE | 2020-12-17 11:13 | W.PM.OPSUD ---
Surgery/Procedure H&P Update DATE OF PROCEDURE: December 17, 2020 DATE H&P PERFORMED: 12/10/20 H&P UPDATE INFORMATION: I have reviewed H&P completed within last 30 days, I have examined patient prior to procedure and No changes to prior documentation PREOP DIAGNOSIS: colon cancer PLANNED PROCEDURE: Operation Date: 12/17/20 10:25 Proposed Procedures p 60085 laparoscopic possible open extended right hemicolectomy k63.89(Right) - Alvaro Alvarado MD
--- NOTE | 2020-12-17 14:02 | PC.NURSE ---
Spoke with patient's daughter Dina and gave her an update. Patient's spouse not available by phone.
--- NOTE | 2020-12-17 15:08 | P.OP_ITS ---
Operative Report Date of procedure: December 17, 2020 Pre-op Diagnosis: 1. Adenocarcinoma hepatic flexure Pre-op Diagnosis: 2.Scattered areas of hypoattenuation in the liver concerning for metastasis Post-op Diagnosis: 1. Infiltrating adenocarcinoma hepatic flexure 2. No evidence of peritoneal carcinomatosis 3. No evidence of liver metastasis Procedure Done: Laparoscopic extended right hemicolectomy with extracorporeal ileocolic stapled [id number] anastomosis Specimens removed/disposition: Extended right hemicolectomy specimen containing ileum, cecum, ascending colon, two thirds of transverse colon Surgeon: Alvaro Alvarado Anesthesia: General Condition: stable Disposition: PACU Procedure: The patient was taken to the operating room and placed in supine position under general anesthesia after IV antibiotic had been administered. A Oreilly catheter was placed and the abdomen was prepped and draped in a sterile manner. A 2 cm midline supraumbilical incision was made and using open Atkinson technique the peritoneal cavity was entered and an 11 mm port was placed and 15 mm of pneumoperitoneum was created. 10 mm 30? scope was introduced. 5 mm ports were placed in the suprapubic, left lower quadrant, left upper quadrant area in the midclavicular line under direct visualization. There was no evidence of liver metastasis or peritoneal carcinomatosis. The mass at the hepatic flexure was identified. The patient was placed in Trendelenburg position and steep tilt to the left placing the small bowel in the left side within the peritoneal cavity and the transverse colon was retracted superiorly. The cecum was retracted laterally and the tenting of the ileocolic pedicle was noted. The peritoneum overlying the pedicle was opened and a window created posterior to the pedicle just lateral to the third portion of the duodenum. Dissection was carried superiorly and lateral to the duodenum along the avascular plane. Using LigaSure the ileocolic pedicle was divided. The avascular plane was dissected laterally towards the right paracolic gutter and superiorly towards the hepatic flexure.The transverse mesocolon was divided using LigaSure and this was co ntinued medially. The right and left branch of mid colic vessels were identified separately in the transverse mesocolon, skeletonized and divided with LigaSure. The anterior leaflet of the greater omentum was divided near the midpoint of the transverse colon to enter the lesser sac. The greater omentum was divided using LigaSure and the hepatic flexure was taken down. The greater omentum anterior leaflet was divided using LigaSure device up to the splenic flexure until the left colon was completely mobilized from the greater curvature of the stomach. The dissection was carried along the line of Toldt until the ascending colon and down to ileum to completely free it up. The mesentery of the terminal ileum was divided using LigaSure for about 10 cm from the cecum. 20 cc of saline mixed with 20 of Exparel mixed with 20 cc of .5% Marcaine was infiltrated in the midclavicular line under laparoscopic visualization for a TAP block. At this point the pneumoperitoneum was released and the mobilized colon and small bowel was exteriorized through the supraumbilical incision which had been extended and a wound protector was placed. Interrupted 4-0 Vicryl suture was placed to approximate the ileum to the transverse colon and enterotomies were created on the transverse colon and small bowel and and 75 mm blue load LEONARDA stapler was introduced and fired creating a [id number] stapled anastomosis. There was no bleeding noted from the staple line and enterotomies were grasped with Allis clamps and another load of 75 mm blue load LEONARDA stapler x 2 was fired to resect the specimen distal to the enterotomies. 4-0 Vicryl Lembert sutures were placed on the edges and the intersection of the staple line. The anastomosed segment was reintroduced into the peritoneal cavity, with the o mentum covering the anastomosis. All ports were removed under direct visualization and there was no bleeding noted from the port sites. The midline incision was closed using running #1 looped PDS. The wound was irrigated with saline, and subcutaneous tissue approximated using 3-0 Vicryl suture and skin at all 4 port sites were closed with 4-0 Monocryl and Dermabond. The patient was extubated and transferred to recovery room with a Oreilly catheter.
--- NOTE | 2020-12-17 15:19 | P.PCN_ITS ---
PACU note PACU note: VSS, Good respiratory effort, report to EARLY CHILDHOOD ASSOCIATE Post-Anesthesia Exam: awake
--- NOTE | 2020-12-17 15:19 | PM.PACU ---
PACU note PACU note: VSS, Good respiratory effort, report to LIFE SCIENCE TAXONOMIST Post-Anesthesia Exam: awake
--- NOTE | 2020-12-17 15:32 | SUR.PHASEI ---
1515- ARTERIAL LINE DISCONTINUED PER PROTOCOL
--- NOTE | 2020-12-17 16:29 | PM.CONSULT ---
Providers/Reason For Consult Consulting Physican/Specialty*: MD Lavern/internal medicine Reason for Consult*: Medical problems Attending Physician: Alvaro Alvarado MD Primary Care Provider: Eh Haddad MD History of Present Illness History of Present Illness Daniel Patel is a 70 year old male past medical history of CAD, hypertension, pulmonary hypertension, mixed hyperlipidemia who underwent laparoscopic extended right hemicolectomy with extracorporeal ileocolic [id number] anastomosis with Dr. Alvarado today. Medicine has been consulted for medical problems. Patient on examination lying comfortably in bed. He states he takes his antihypertensive daily. Usually when he checks his blood pressure they are ranging from systolic 1 30-1 40 with diastolic of 80-90. Does not use any oxygen at home. Usually when he walks around he does not have any chest pain or chest heaviness. Patient follows up with Dr. Alvarado for cardiology. Denies any nausea, vomiting, headache, dysuria, diarrhea, fever, no exposure to COVID-19 recently. Blood work today showed a white of 7.9, hemoglobin of 9.2. Review of Systems General: Reports: 10 or more systems reviewed and unremarkable except in HPI and below Const: Denies: fever(s), chills, body aches, change in appetite, change in weight, malaise, night sweats, diaphoresis, change in sleep pattern, daytime sleepiness or snoring Eyes: Denies: change in vision, blurry vision, photophobia, eye discomfort or eye discharge ENMT: Denies: throat pain, enlarged tonsils, hoarseness, mouth pain, oral sores, dry mouth, tinnitus, nasal congestion or post nasal drip Card: Denies: chest pain, palpitations, irregular heart rhythm, edema, swelling of feet/ankles, lightheadedness, syncope, pre-syncope, dyspnea on exertion, orthopnea, leg pain with exertion or acrocyanosis Resp: Denies: dyspnea, productive cough, non-productive cough, wheezing, stridor, pain on inspiration, change in phlegm color, hemoptysis or chest congestion GI: Denies: abdominal pain, nausea, vomiting, hematemesis, coffee ground emesis, dysphagia, heartburn, diarrhea, constipation, bloating, GI cramping, change in bowel habits, pain on defecation, hematochezia or melena : Denies: flank pain, difficulty urinating, dysuria, urinary frequency, urinary urgency, urinary hesitancy, urinary dribbling, difficulty starting urination, change in urine stream, nocturia or hematuria Musc: Denies: neck pain, back pain, extremity pain, joint pain, joint swelling, joint redness, joint stiffness or limited range of motion Neuro: Denies: headache(s), numbness in extremities, weakness in extremities, sensory changes, lack of coordination, difficulty walking, frequent falls, dizziness, vertigo, confusion, Slurred speech present, difficulty communicating thoughts or seizure-like activity Psych: Denies: anxiety, depression, mood swings, panic attacks, hopelessness or irritability Endo: Denies: polyuria, polydipsia, tired all the time, cold intolerance, excessive sweating, flushing or heat intolerance Ranjit/Lymph: Denies: easy bruising or easy bleeding All/Imm: Denies: tongue swelling, facial swelling or acute wheezing Meds/Allergies Home Medications and Allergies Home Medications Medication Instructions Recorded Confirmed Last Taken Type aspirin 325 mg tablet 325 mg PO DAILY tab 08/10/19 12/14/20 12/10/20 History amlodipine 10 mg tablet 5 mg PO DAILY #90 tab 10/24/19 12/14/20 12/17/20 Rx duloxetine 30 mg capsule,delayed 90 mg PO DAILY #270 cap 02/27/20 12/14/20 12/16/20 Rx release pantoprazole 40 mg tablet,delayed 40 mg PO DAILY #90 tab 05/15/20 12/14/20 12/16/20 Rx release furosemide 20 mg tablet 20 mg PO QAM #90 tab 05/21/20 12/14/20 12/16/20 Rx tamsulosin 0.4 mg capsule See Rx Instructions .ROUTE 10/22/20 12/14/20 12/16/20 Rx .COMPLEX #90 cap trazodone 100 mg tablet 100 mg PO .qhs PRN #30 tab 11/28/20 12/14/20 12/16/20 Rx carvedilol 12.5 mg tablet 12.5 mg PO BID #180 tab 11/29/20 12/14/20 12/17/20 Rx isosorbide mononitrate 30 mg 30 mg PO QAM #90 tab 11/29/20 12/14/20 12/16/20 Rx tablet,extended release 24 hr potassium chloride 20 mEq 20 meq PO DAILY 30 Days #30 tab 11/29/20 12/14/20 12/16/20 Rx tablet,extended release enalapril maleate 20 mg tablet 40 mg PO DAILY #60 tab 12/10/20 12/14/20 12/17/20 Rx erythromycin 500 mg tablet 500 mg PO ONCE #3 tab 12/14/20 12/17/20 12/16/20 Rx neomycin 500 mg tablet 1 g PO ONCE #6 tab 12/14/20 12/17/20 12/16/20 Rx Allergies Allergy/AdvReac Type Severity Reaction Status Date / Time No Known Allergies Allergy Verified 12/17/20 09:15 PFSH Acute PFSH: Medical History (Updated 12/17/20 @ 16:31 by Roman Guillen MD) CAD (coronary artery disease) Cardiac ischemia Erectile dysfunction Essential hypertension Gout Lumbar disc disease with radiculopathy Mixed hyperlipidemia Nephrolithiasis Pulmonary hypertension Pure hypercholesterolemia Surgical History (Updated 12/17/20 @ 16:31 by Roman Guillen MD) H/O carpal tunnel repair H/O esophagogastroduodenoscopy H/O lithotripsy History of cataract surgery History of fusion of cervical spine C4-C7 ACDFF, with C6 corpectomy; 2002; [facility] C3-C4 ACDFF; 01/28/2018; [facility] History of lumbar surgery Left L4-L5, L5-S1 hemilaminotomy/discectomy/foraminotomy; 04/07/2019; [facility]. Right L3-L4 and reexploration left L4-L5 laminotomy/discectomy, 10/03/2019, [facility] [place] Hx of cardiac catheterization Hx of cholecystectomy S/P bilateral inguinal hernia repair Status post colonoscopy Family History Brother Cancer Stomach Father Emphysema lung Lung disease Cancer Mother Hypertension Cancer Diabetes Denies family history of CAD (coronary artery disease) Clotting disorder Dementia Chronic kidney disease (CKD) Suicide Anesthesia complication Bleeding disorder Stroke Social History Smoking and tobacco status: never smoked Second hand smoke exposure: No Alcohol intake: current Alcohol intake frequency: few times a week Lives independently: Yes Household members: spouse Marital status: Current occupational status: retired History of recent travel: No Vitals/I&O/Wt Last Vital Signs Temp 97.9 F 12/17/20 16:15 Pulse 65 12/17/20 16:15 Resp 16 12/17/20 16:15 BP 128/77 12/17/20 16:15 Pulse Ox 100 12/17/20 16:15 12/17/20 12/17/20 12/17/20 06:59 14:59 22:59 Intake Total 50 / 50 1000 / 1050 Output Total 550 / 550 Balance 50 / 50 450 / 500 Physical Exam Narrative: EXAM NARRATIVE: EXAM NARRATIVE: General: No acute distress, AO x3, NC oxygen supplementation HEENT: PERRLA, pupils bilaterally equal and reactive Chest:Bronchial breath sounds b/l ,decreased air entry, equal good air entry bilaterally, no more fine basal crackles CVS: S1-S2 regular, no murmurs, no tachycardia, no gallops, no rubs Abdomen: Soft, nontender, no organomegaly, bowel sounds present, morbidly obese Neuro: No focal deficits, no facial deformity, AO x3, power 5/5 in all limbs Urinary Catheter Management^: O[place]: Cath Placed During This Visit: yes Urinary Catheter Date of Insertion: 12/17/20 Urinary Catheter Time of Insertion: 13:00 A&P Assessment and plan (1) S/P right hemicolectomy: Status: Acute (2) Essential hypertension: Status: Chronic (3) CAD (coronary artery disease): Status: Acute (4) Pulmonary hypertension: Status: Acute (5) Mixed hyperlipidemia: Status: Chronic Additional A&P Information Hypertension: Goal blood pressure less than 140/90 mmHg. Continue antihypertensives at home dose. Continue amlodipine 5 mg, carvedilol 12.5 twice daily, Imdur 30, enalapril 40 mg daily. History of pulmonary hypertension: Oxygen supplementation keeping saturation over 92%. We will continue to monitor hemodynamics and oxygen saturations. Incentive spirometry. Physical therapy CAD: Denies any active chest pain. Last seen by Dr. Encarnacion earlier this year. Cardiac catheterization 2018 showed normal left main, normal LAD, mildly eccentric plaque in the circumflex, tapering narrowing of about 40% in the RCA with one PDA branch with an ostial narrowing of 30-40%. LVEF of 55%. Echocardiogram done in 2018 showed an EF 59% grade 1 diastolic dysfunction, moderate pulmonary hypertension with PASP of 59. Last Lexiscan perfusion scan 2018 suggestive of myocardial scarring versus attenuation artifact. Repeat echocardiogram. Continue other chronic medications including an aspirin 325 mg daily when cleared from surgical point of view. Continue home dose of Cymbalta, pantoprazole, Flomax, trazodone. Full code. Diet as per surgical team. Lovenox 40 mg daily once cleared from surgical point of view. SCD till then Consult Attestations Medical Necessity Statement: As per primary team Time Spent in Patient Care: Greater than 35 minutes (>than 50% of time spent in counselling and/or direct pt care on unit). Coding Level of Care Code Acute Robotic Welding Operator for Chg Fwd Diagnoses S/P right hemicolectomy Z90.49 Essential hypertension I10 CAD (coronary artery disease) I25.10 Pulmonary hypertension I27.20 Mixed hyperlipidemia E78.2
[2020-12-17] MEDS: sennosides-docusate Tablet 1 TAB PO (17:08)
[2020-12-17] MEDS: HYDROcodone-acetaminophen 5-325 mg Tablet 1 TAB PO (17:08)
[2020-12-17] MEDS: D5-NS 0.45% + KCL 20 mEq 20 MEQ/1,000 ML BAG 100 MEQ IV (17:10)
--- NOTE | 2020-12-17 17:43 | ANE.PACU2 ---
Inpatient post-anesthesia follow up: Airway intact: Yes Vital signs: Temperature 97.9 F Pulse Rate 65 Respiratory Rate 16 Blood Pressure 128/77 Pulse Oximetry 100 Oxygen Delivery Me thod Nasal Cannula Oxygen Flow Rate 2 Fraction of Inspir ed Oxygen Hydration adequate: Yes Nausea and vomiting: No Pain level: 3 Mental status: Baseline
[2020-12-17 18:13] LABS: Iron 47 ug/dL (59-158); NT Pro B Type Natriuretic Pept 494 pg/mL (0-125); Percent Saturation 11.5 % (20-50); Thyroid Stimulating Hormone 2.21 uIU/mL (0.27-4.20); Total Iron Binding Capacity 408 mcg/dl; Unsaturated Iron Binding 361 ug/dL (112-347)
[2020-12-17] MEDS: morphine 4 mg/mL SDV 1 mL 3 MG IVP (20:37)
[2020-12-17] MEDS: ceFOXitin 2,000 MG in sodium chloride 0.9% (plus) 50 ML 100 MG IV (21:24)
[2020-12-17] MEDS: carvedilol 12.5 mg Tablet PO (21:25)
[2020-12-17] MEDS: famotidine 20 mg/2 mL INJ IVP (22:29)
[2020-12-18] MEDS: acetaminophen 325 mg Tablet 650 MG PO ×3 (00:04→22:52)
[2020-12-18 02:40] LABS: Basophils % 0.3 %; Eosinophils # 0.2 10^3/uL (0.0-0.8); Eosinophils % 1.6 %; Hematocrit 29.6 % (42.0-52.0); Hemoglobin 8.3 g/dL (11.7-16.6); Mean Corpuscular Hemoglobin 20.8 pg (28.0-34.0); Mean Corpuscular Volume 74.2 fL (80-94); Mean Platelet Volume 9.4 fL (7.4-10.4); Monocytes # 0.6 10^3/uL (0.2-0.9); Monocytes % 5.8 %; Neutrophils # 8.41 10^3/uL (1.8-7.7); Nucleated Red Blood Cells % 0 %; Platelet Count 172 10^3/cmm (130-400); Red Blood Count 3.99 10^6/uL (4.1-5.3); Red Cell Distribution Width 24.6 % (12.1-15.1); White Blood Count 10.3 10^3/uL (4.0-10.0)
[2020-12-18 03:11] LABS: Anion Gap 9.6 (5-19); Blood Urea Nitrogen 4 mg/dL (8-23); Calcium 7.2 mg/dL (8.5-10.5); Carbon Dioxide 28 mmol/L (22-29); Chloride 102 mmol/L (98-107); Chol HDL Ratio 2.36 mg/dL (1.0-5.00); Cholesterol 139 mg/dL (0-200); Glucose 117 mg/dL (65-115); HDL Cholesterol 59 mg/dL (60-100); LDL Cholesterol Calculated 63 mg/dL (50-129); Osmolality Calculated 280 mOsm/kg (285-295); Potassium 3.6 mmol/L (3.5-5.1); Sodium 136 mmol/L (136-145); Triglycerides 84 mg/dL (0-150); VLDL Cholestrol Calculation 17 mg/dL (0-30)
[2020-12-18] MEDS: HYDROcodone-acetaminophen 5-325 mg Tablet 1 TAB PO (04:11)
[2020-12-18] MEDS: D5-NS 0.45% + KCL 20 mEq 20 MEQ/1,000 ML BAG 100 MEQ IV (04:15)
[2020-12-18 04:27] VITALS: BP 138/77; PULSE 75; RESP 18; TEMP 36.7; O2SAT 92
[2020-12-18] MEDS: ceFOXitin 2,000 MG in sodium chloride 0.9% (plus) 50 ML 100 MG IV (04:35)
[2020-12-18] MEDS: isosorbide mononitrate ER 30 mg Tablet PO (05:44)
[2020-12-18] MEDS: FUROsemide 20 mg Tablet PO (05:44)
--- NOTE | 2020-12-18 06:00 | USCV_ITS ---
Daniel Patel Age: 70 Gender: M : 1950 Exam Date: 12/18/2020 06:27 Ordering Phys: Roman Guillen MD Technologist: Idalia Sandhu Exam Location: [facility] – [place] Indication: H/O PULM HTN AND DD BP: 138 / 77 HR: 72 Rhythm: Sinus Technical Quality: Adequate MEASUREMENTS (Male / Female) Normal Values 2D ECHO LV Diastolic Diameter PLAX 5.5 cm 4.2 - 5.9 / 3.9 - 5.3 cm LV Systolic Diameter PLAX 4.5 cm IVS Diastolic Thickness 1.2 cm 0.6 - 1.0 / 0.6 - 0.9 cm IVS Systolic Thickness 1.9 cm LVPW Diastolic Thickness 1.2 cm 0.6 - 1.0 / 0.6 - 0.9 cm LVPW Systolic Thickness 1.8 cm LVOT Diameter 2.0 cm LV Ejection Fraction 2D Teich 38.1 % LV Ejection Fraction MOD 2C 42.6 % LV Ejection Fraction 2C AL 43.3 % LA Diameter 3.6 cm LA Width 3.6 cm LA Height 4.8 cm RA Width 3.7 cm RA Height 3.2 cm Aorta at Sinotubular Diameter 3.2 cm DOPPLER AV Peak Velocity 134.0 cm/s LVOT Peak Velocity 86.0 cm/s AV Area Cont Eq vti 2.3 cm squared AV Area Cont Eq pk 2.1 cm squared MV Area PHT 3.3 cm squared Mitral E to A Ratio 1.1 MV E' Velocity 50.5 cm/s Mitral E to MV E' Ratio 8.2 Mitral E to LV E' Lateral Ratio 6.8 Mitral E to LV E' Septal Ratio 10.1 TR Peak Velocity 82.0 cm/s TR Peak Gradient 2.7 mmHg Right Atrial Pressure 3.0 mmHg Pulmonary Artery Systolic Pressu 5.7 mmHg PV Peak Velocity 74.0 cm/s RV Acceleration Time 0.1 s RV Ejection Time 0.5 s RV AcT/ET 0.2 FINDINGS Left Ventricle Normal left ventricular size. LV systolic function is borderline normal with EF of 50-55%.No regional wall motion abnormalities. Normal diastolic filling pattern. Right Ventricle The right ventricle is normal in size and function. Right Atrium The right atrium is normal in size. Left Atrium The left atrium is normal in size. Mitral Valve Structurally normal mitral valve without significant stenosis or prolapse. There is no mitral regurgitation. Aortic Valve Thickened aortic valve without significant stenosis. There is no aortic regurgitation. Tricuspid Valve Structurally normal tricuspid valve without significant stenosis or regurgitation. Insufficient TR jet to calculate RVSP Pulmonic Valve Structurally normal pulmonic valve without significant stenosis. There is no pulmonic regurgitation. Pericardium Normal pericardium without effusion. Aorta Normal ascending aorta dimension. CONCLUSIONS LV systolic function is borderline normal with EF of 50-55% Normal diastolic function No significant valvular heart disease Compared to prior echocardiogram from 2018, no significant changes are noted Jesus Rangel MD (Electronically Signed) Final Date: 18 Dec 2020 11:43 S
[2020-12-18 07:22] LABS: Estmated Average Glucose 85; Hemoglobin A1C 4.6 % (4.0-6.0)
[2020-12-18 07:54] VITALS: BP 139/67; PULSE 69; RESP 18; TEMP 36.7; O2SAT 92
[2020-12-18] MEDS: sennosides-docusate Tablet 1 TAB PO ×2 (08:06→17:34)
[2020-12-18] MEDS: tamsulosin 0.4 mg Capsule PO (08:06)
[2020-12-18] MEDS: duloxetine 30 MG, duloxetine 60 MG 90 MG PO (08:06)
[2020-12-18] MEDS: amlodipine 5 mg Tablet PO (08:06)
[2020-12-18] MEDS: famotidine 20 mg/2 mL INJ IVP ×2 (08:06→21:56)
[2020-12-18] MEDS: potassium chloride ER 20 mEq Tablet PO (08:06)
[2020-12-18] MEDS: carvedilol 12.5 mg Tablet PO ×2 (08:06→21:56)
[2020-12-18 08:35] VITALS: PULSE 85; O2SAT 92
--- NOTE | 2020-12-18 09:00 | PC.NURSE ---
Removed O[place]illy Catheter at this time. Patient tolerated well.
--- NOTE | 2020-12-18 10:43 | PC.CHAP ---
Pastoral Care Encounter/Spiritual Assessment Type of Contact [] Declined needle punch operator visit [] Patient/Family/Request visit [] Outpatient visit [] Follow-up visit [] Physician referral [] Code/Alert [x] Routine visit [] Staff referral [] Actively dying [] Patient sleeping [] Family support [] [] Out of room [] Palliative care [] [] Receiving care in room [] Pre-surgical visit [] Trauma [] Long length of stay [] ICU visit [] Other: Relational/Emotional Strength [x] Patient feels connected with others/family/visitors/staff [] Distress [] Loneliness/isolation [] Abandonment Spirituality of Patient [] Person of Jessica [] Attends Mu-Ism of their Jessica [] Believes in Prayer [] Reads Bible or Yarsanism materials [] There are Spiritual issues to be addressed Insecticide Supervisor Interventions [x] Prayer [x] Active listening [] Non-anxious presence [x] Spiritual/emotional support [] Crisis/trauma care [] Spiritual counseling [] Bereavement support [] Provided bereavement packet [x] Provided Bible/devotional materials [] Provided toy/stuffed animal, coloring book to patient or family member [] Provided Communion [] Anointing/[place] [] Salvation [x] Completed spiritual assessment [] Other: Impact on Illness or Injury [] Angry [] Fearful [] Anxious [] Often cries [] Exhaustion [] Unable to work [] Unable to attend restorationist [] Unable to walk/stand [] Unable to read [] Unable to drive [] Unable to eat/drink [] Unable to sleep [] Unable to be with family [] Patient intubated [] Other: Summary Time spent with patient
[2020-12-18 11:18] VITALS: BP 123/68; PULSE 65; RESP 18; TEMP 36.9; O2SAT 90
[2020-12-18 16:00] VITALS: BP 129/70; PULSE 73; RESP 16; TEMP 37.1; O2SAT 92
--- NOTE | 2020-12-18 16:33 | PM.PN ---
Subjective Subjective: Interval history: Patient has been doing reasonably well this morning, but states his pain is bearable, no flatus, no BM, no nausea or vomiting Medications: Reviewed: Yes Vitals/I&O/Wt Last Vital Signs Temp 98.7 F 12/18/20 16:00 Pulse 73 12/18/20 16:00 Resp 16 12/18/20 16:00 BP 129/70 12/18/20 16:00 Pulse Ox 92 12/18/20 16:00 12/18/20 12/18/20 12/18/20 06:59 14:59 22:59 Intake Total 1000 / 2100 586.667 / 586.667 Output Total 400 / 1250 500 / 500 Balance 600 / 850 86.667 / 86.667 Physical Exam Narrative: EXAM NARRATIVE: Abdomen: Soft, tender, mildly distended, incision clean dry and intact Oreilly to gravity Urinary Catheter Management^: O[place]: Cath Placed During This Visit: yes Urinary Catheter Date of Insertion: 12/17/20 Urinary Catheter Time of Insertion: 13:00 Data : 12/18/20 02:13 12/18/20 02:13 A&P Assessment and plan (1) S/P right hemicolectomy: S/p laparoscopic extended right hemicolectomy for hepatic flexure mass with postop ileus IV fluids at 100 cc Per hour, decreased to 30 cc/h DC Oreilly Diet: Start clear liquid diet Pain control: [place], morphine, Tylenol, Colace-senna for bowel regimen Ambulate ad shaggy. Incentive spirometry SCD Lovenox for DVT prophylaxis Pepcid for GI prophylaxis Resume home medications Appreciate input from hospitalist service Patient will need 2 or more nights of continued inpatient stay for resolution of ileus and to ensure no further complications Status: Acute Attestations Medical Necessity Statement*: Status post colectomy requiring continued inpatient stay Coding Level of Care Code Acute Stitch Burnisher for Chg Fwd Diagnoses S/P right hemicolectomy Z90.49
[2020-12-18] MEDS: enoxaparin 40 mg/0.4 mL Syringe SUBCUT (16:42)
--- NOTE | 2020-12-18 19:14 | PC.NURSE ---
Report Judith LEE at this time.
[2020-12-18 19:44] VITALS: BP 141/89; PULSE 66; RESP 16; TEMP 37; O2SAT 93
--- NOTE | 2020-12-18 19:59 | P.PN_ITS ---
Subjective Subjective: Interval history: Reports he is doing all right. Having trial of clear liquids. No vomiting. Not passing gas yet. Vitals/I&O/Wt Last Vital Signs Temp 98.6 F 12/18/20 19:44 Pulse 66 12/18/20 19:44 Resp 16 12/18/20 19:44 BP 141/89 12/18/20 19:44 Pulse Ox 93 12/18/20 19:44 12/18/20 12/18/20 12/18/20 06:59 14:59 22:59 Intake Total 1000 / 2100 586.667 / 586.667 250 / 836.667 Output Total 400 / 1250 500 / 500 Balance 600 / 850 86.667 / 86.667 250 / 336.667 Physical Exam 2 Const: COMMON NORMALS: no acute distress and patient oriented x3 HENMT: COMMON NORMALS: oropharynx normal Neck/C-Spine: COMMON NORMALS: no JVD Resp: COMMON NORMALS: normal respiratory effort and clear to auscultation bilaterally AUSCULTATION: clear to auscultation bilaterally Cardio: COMMON NORMALS: no JVD, regular rhythm, S1 normal heart sound present, S2 normal heart sound present and No murmurs present (Cardio) RHYTHM: regular rhythm HEART SOUNDS: S1 normal heart sound present and S2 normal heart sound present GI: COMMON NORMALS: Normal to inspection, nondistended, normoactive bowel hanh nds present, Soft to palpation and non-tender PALPATION: Yes Soft to palpation OTHER: Small midline incision healing well. Extremity: COMMON NORMALS: no joint enlargement and no pedal edema Neuro: COMMON NORMALS: patient oriented x3 and moves all extremities Skin: COMMON NORMALS: no rashes or lesions noted GENERAL SKIN EXAM: no rashes or lesions noted Urinary Catheter Management^: O[place]illy: Cath Placed During This Visit: yes Urinary Catheter Date of Insertion: 12/17/20 Urinary Catheter Time of Insertion: 13:00 Data : 12/18/20 02:13 12/18/20 02:13 A&P Assessment and plan (1) S/P right hemicolectomy: Awaiting resolution of ileus. Trial of clear liquid diet. Status: Acute (2) Essential hypertension: Oxygenation stable. Status: Chronic (3) CAD (coronary artery disease): Resume aspirin when safe. Continue beta-saleem, Imdur. Echo repeated with normal ejection fraction, normal diastolic function. Status: Acute (4) Pulmonary hypertension: Status: Acute (5) Mixed hyperlipidemia: Status: Chronic Additional A&P Information Hypertension: Goal blood pressure less than 140/90 mmHg. Continue antihypertensives at home dose. Continue amlodipine 5 mg, carvedilol 12.5 twice daily, Imdur 30, enalapril 40 mg daily. Continue home dose of Cymbalta, Flomax, trazodone. Famotidine. Attestations Medical Necessity Statement*: Continue admission for assessment management fo llowing with underlying comorbidities including pulmonary hypertension, CAD. Coding Level of Care Code Acute Rocket Assembly Operator for Chg Fwd Exam Comprehensive Diagnoses S/P right hemicolectomy Z90.49 Essential hypertension I10 CAD (coronary artery disease) I25.10 Pulmonary hypertension I27.20 Mixed hyperlipidemia E78.2
[2020-12-19] VITALS (7 sets, daily range): BP systolic 127–151; BP diastolic 63–77; PULSE 66–74; RESP 16–18; TEMP 36.7–37; O2SAT 89–94
[2020-12-19 02:45] LABS: Basophils % 0.4 %; Eosinophils # 0.3 10^3/uL (0.0-0.8); Eosinophils % 2.8 %; Hematocrit 30.4 % (42.0-52.0); Hemoglobin 8.3 g/dL (11.7-16.6); Lymphocytes # 1.1 10^3/uL (0.8-4.8); Mean Corpuscular HGB Conc 27.3 g/dL (30.0-36.0); Mean Corpuscular Hemoglobin 20.4 pg (28.0-34.0); Mean Corpuscular Volume 74.9 fL (80-94); Mean Platelet Volume 10.1 fL (7.4-10.4); Monocytes # 0.7 10^3/uL (0.2-0.9); Monocytes % 7.5 %; Neutrophils # 6.89 10^3/uL (1.8-7.7); Neutrophils % 76.9 %; Nucleated Red Blood Cells % 0 %; Platelet Count 160 10^3/cmm (130-400); Red Blood Count 4.06 10^6/uL (4.1-5.3); Red Cell Distribution Width 24.8 % (12.1-15.1)
[2020-12-19 02:58] LABS: Anion Gap 10.7 (5-19); Blood Urea Nitrogen 4 mg/dL (8-23); Calcium 7.8 mg/dL (8.5-10.5); Carbon Dioxide 28 mmol/L (22-29); Chloride 97 mmol/L (98-107); Glucose 110 mg/dL (65-115); Osmolality Calculated 272 mOsm/kg (285-295); Potassium 3.7 mmol/L (3.5-5.1); Sodium 132 mmol/L (136-145)
--- NOTE | 2020-12-19 05:20 | PC.NURSE ---
SHIFT SUMMARY Patient rested off and on throughout the night. Patient has some complaints of pain in his abdomen throughout the night, with patient receiving tylenol. Patient refused the hydrocodone stating he did not want to take something that strong. Patient has been up to the bathroom and has been passing gas. [facility] bowel movement on that shift (12/18/20).
[2020-12-19] MEDS: isosorbide mononitrate ER 30 mg Tablet PO (05:33)
[2020-12-19] MEDS: acetaminophen 325 mg Tablet 650 MG PO (05:33)
[2020-12-19] MEDS: FUROsemide 20 mg Tablet PO (05:34)
[2020-12-19] MEDS: D5-NS 0.45% + KCL 20 mEq 20 MEQ/1,000 ML BAG 30 MEQ IV (05:36)
[2020-12-19] MEDS: sennosides-docusate Tablet 1 TAB PO (09:05)
[2020-12-19] MEDS: amlodipine 5 mg Tablet PO (09:05)
[2020-12-19] MEDS: potassium chloride ER 20 mEq Tablet PO (09:05)
[2020-12-19] MEDS: carvedilol 12.5 mg Tablet PO (09:05)
[2020-12-19] MEDS: tamsulosin 0.4 mg Capsule PO (09:05)
[2020-12-19] MEDS: famotidine 20 mg/2 mL INJ IVP (09:05)
[2020-12-19] MEDS: duloxetine 30 MG, duloxetine 60 MG 90 MG PO (09:05)
[2020-12-19] MEDS: HYDROcodone-acetaminophen 5-325 mg Tablet 1 TAB PO (10:51)
--- NOTE | 2020-12-19 11:38 | PC.NURSE ---
Amb. Pt walked 350 feet.
--- NOTE | 2020-12-19 11:44 | PM.PN ---
Subjective Subjective: Interval history: Patient has been passing flatus, had a bowel movement, no nausea or vomiting, tolerating full liquid, felt a bit distended after breakfast but not anymore Vitals/I&O/Wt Last Vital Signs Temp 98.1 F 12/19/20 11:11 Pulse 70 12/19/20 11:11 Resp 16 12/19/20 11:11 BP 132/75 12/19/20 11:11 Pulse Ox 94 12/19/20 11:11 12/18/20 12/19/20 12/19/20 22:59 06:59 14:59 Intake Total 250 / 1303.500 466.833 / 1303.500 302 / 302 Output Total 0 / 500 Balance 250 / 803.500 466.833 / 803.500 302 / 302 Physical Exam Narrative: EXAM NARRATIVE: Abdomen: Soft, nontender, incision clean dry and intact Urinary Catheter Management^: [place]: Cath Placed During This Visit: yes Urinary Catheter Date of Insertion: 12/17/20 Urinary Catheter Time of Insertion: 13:00 Data : 12/19/20 02:07 12/19/20 02:07 A&P Assessment and plan (1) S/P right hemicolectomy: S/p laparoscopic extended right hemicolectomy for hepatic flexure mass with postop ileus, resolved DC home today Status: Acute Attestations Medical Necessity Statement*: Status post hemicolectomy doing well, DC home today Coding Level of Care Code Acute Senior Wind Energy Consultant for Chg Fwd Diagnoses S/P right hemicolectomy Z90.49
--- NOTE | 2020-12-19 11:48 | P.DS_ITS ---
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 Patient had return of bowel function by postop day 2. At time of discharge his vital signs are stable, he was tolerating full liquid diet and had bowel movements. His incisions were clean dry and intact. He had a echocardiogram given his history of pulmonary hypertension He had an echocardiogram due to concerns for pulmonary hypertension and showed LV systolic function is borderline normal with EF of 50-55% Normal diastolic function No significant valvular heart disease Compared to prior echocardiogram from 2018, no significant changes are noted Physical Exam Narrative: EXAM NARRATIVE: Abdomen: Soft, minimally tender, nonrigid, incisions healing well Urinary Catheter Management^: Oreilly: Cath Placed During This Visit: yes Urinary Catheter Date of Insertion: 12/17/20 Urinary Catheter Time of Insertion: 13:00 Discharge Data Data Completed and Pending: Completed Studies During Hospitalization Category Date Time Status CV echo complete* [id number] Routine Ultrasound 12/18/20 06:00 Completed Pending at discharge Category Date Time Status ES surgery / GI i mages Routine Exams 12/17/20 12:05 Taken Basic Metabolic P elina AM LABS Lab 12/20/20 04:00 Ordered Complete Blood Co unt w/Auto AM LABS Lab 12/20/20 04:00 Ordered Pathology: Surgic al [PTH] Routine Pth 12/17/20 14:49 Received Labs from last 24 hours 12/19/20 12/19/20 02:07 02:07 WBC 9.0 RBC 4.06 L Hgb 8.3 L Hct 30.4 L MCV 74.9 L MCH 20.4 L MCHC 27.3 L RDW 24.8 H Plt Count 160 MPV 10.1 Neut % (Auto) 76.9 Lymph % (Auto) 12.0 [place] % (Auto) 7.5 Eos % (Auto) 2.8 Baso % (Auto) 0.4 Neut # (Auto) 6.89 Lymph # (Auto) 1.1 [place] # (Auto) 0.7 Eos # (Auto) 0.3 Baso # (Auto) 0.0 Nucleated RBC % (a uto) 0 Nucleated RBCs # 0.0 Sodium 132 L Potassium 3.7 Chloride 97 L Carbon Dioxide 28 Anion Gap 10.7 BUN 4 L Creatinine 0.6 L GFR Calculation 134.0 H Glucose 110 Calculated Osmolal ity 272 L Calcium 7.8 L Vitals: Last Vital Signs Temp 98.1 F 12/19/20 11:11 Pulse 70 12/19/20 11:11 Resp 16 12/19/20 11:11 BP 132/75 12/19/20 11:11 Pulse Ox 94 12/19/20 11:11 Discharge Plan Discharge Patient Disposition: Home Condition: Stable Prescriptions: New hydrocodone-acetaminophen 5-325 mg tablet 1 tab PO Q6H PRN (Reason: pain) Qty: 20 RF: 0 Zofran 4 mg tablet 4 mg PO Q6H PRN (Reason: nausea and vomiting) Qty: 20 RF: 0 Senna with Docusate Sodium 8.6-50 mg tablet 1 tab-cap PO BID Qty: 30 RF: 0 Continued aspirin 325 mg tablet 325 mg PO DAILY RF: 0 Hold Instructions: Resume on 10/05/19. potassium chloride 20 mEq tablet extended release 20 meq PO DAILY 30 Days Qty: 30 RF: 5 trazodone 100 mg tablet 100 mg PO .qhs PRN (Reason: insomnia) Qty: 30 RF: 6 amlodipine 10 mg tablet 5 mg PO DAILY Qty: 90 RF: 3 duloxetine 30 mg capsule,delayed release(DR/EC) 90 mg PO DAILY Qty: 270 RF: 3 pantoprazole 40 mg tablet,delayed release (DR/EC) 40 mg PO DAILY Qty: 90 RF: 3 furosemide [Lasix] 20 mg tablet 20 mg PO QAM Qty: 90 RF: 0 tamsulosin 0.4 mg capsule See Rx Instructions .ROUTE .COMPLEX Qty: 90 RF: 3 carvedilol 12.5 mg tablet 12.5 mg PO BID Qty: 180 RF: 4 isosorbide mononitrate 30 mg tablet extended release 24 hr 30 mg PO QAM Qty: 90 RF: 3 enalapril maleate 20 mg tablet 40 mg PO DAILY Qty: 60 RF: 3 Discontinued erythromycin 500 mg tablet 500 mg PO ONCE Qty: 3 RF: 0 neomycin 500 mg tablet 1 g PO ONCE Qty: 6 RF: 0 Discharge Orders: Discharge Order (Routine); Ordered 12/19/20 Ordered By: Alvaro Alvarado Referrals: Eh Haddad MD [Primary Care Provider] - 4-7 days Lulú Encarnacion MD [Physician] - (As per prior appointment) Alvaro Alvarado MD [Physician] - 01/01/21 8:30 am Patient Instructions: Hydrocodone/Acetaminophen (By mouth), Laxative, Stimulant (By mouth), Ondansetron (By mouth), Coronary Artery Disease (DC), Hypokalemia (DC), Colectomy (DC), Associated Pulmonary Arterial Hypertension (DC), Opioid Safety Activity Restrictions/Additional Instructions: Diet Advance to normal diet as tolerated, increase fluid intake as much as possible. Activity Avoid strenuous activity for 2 weeks but continue with daily activities including walking as tolerated. Do not lift more than 10 pounds for 2 weeks Return to work/school You can return to work/ school whenever you feel ready as long as you don?t have to lift more than 10 pounds at work. If you have paperwork that needs to be completed for time off from work, please contact my office Driving You can resume driving once you stop using narcotic pain medications, and transition to non-opioid pain medications like Tylenol, Motrin, Aleve, etc. Medications Pain Take opioid pain medications as prescribed and transition to non-opioid pain medications like Tylenol, Motrin, Aleve etc. over the next few days. The goal of the pain medications is to make the pain bearable and not to be pain free since you recently had surgery. Resume all home medications after surgery as per the medication reconciliation list Nausea Nausea is common after surgery, take nausea medications as needed and stay on a liquid bland diet until nausea resolves. Constipation The combination of surgery, anesthesia and pain medications can result in constipation. Take stool softeners as prescribed. If you do not have a bowel movement in 3 days, please take an [id number] laxative like MiraLAX to address the constipation. Decrease the dose of stool softeners if you are having significant loose stools or multiple bowel movements a day Shower It is ok to shower but avoid getting the wound wet for 48 hours after surgery. Do not soak in bathtub, swimming pool or hot tub for 2 weeks. Wound care If glue has been used on your incisions after surgery, the glue on the incision will peel slowly over the next two weeks. The stitches used are dissolvable and will not need to be removed. Do not apply antibiotics or other medications on the incision Problems with the wound: you can develop some redness around the incision from bruising after surgery. If there is increasing pain, redness, tenderness around the incision with or without drainage, please contact my office to rule out an infection. Sometimes the skin at the incisions can separate, resulting in reopening of the wound. Cover the wound with antibiotic cream and sterile dressings and contact my office. Contact physician Call the office at [phone] during office hours or go the Emergency Room ?Fever to 100.4 or greater ?Shaking chills ?Pain that increases over time ?Redness, warmth, or pus draining from incision sites ?Persistent nausea or inability to take in liquids Discharge Attestations Time Spent in Discharge Care*: less than 30 min Quality Metrics Clinical Quality Measures During this hospital stay, did patient experience: None Coding Level of Care Code Acute Chg FW KARSTEN note Diagnoses S/P right hemicolectomy Z90.49
--- NOTE | 2020-12-19 12:52 | PM.PN ---
Subjective Subjective: Interval history: He is doing well. He denies having any abdominal pain. He has eaten. He has had several bowel movements. He denies any chest pain or pressure. Denies shortness of breath. He is gotten up and walked around. She feels ready and happy to be returning home. Vitals/I&O/Wt Last Vital Signs Temp 98.1 F 12/19/20 11:11 Pulse 70 12/19/20 11:11 Resp 16 12/19/20 11:11 BP 132/75 12/19/20 11:11 Pulse Ox 94 12/19/20 11:11 12/18/20 12/19/20 12/19/20 22:59 06:59 14:59 Intake Total 250 / 836.667 466.833 / 1303.500 782 / 782 Output Total 0 / 500 Balance 250 / 336.667 466.833 / 803.500 782 / 782 Physical Exam Const: COMMON NORMALS: no acute distress and patient oriented x3 HENMT: COMMON NORMALS: oropharynx normal Neck/C-Spine: COMMON NORMALS: no JVD Resp: COMMON NORMALS: normal respiratory effort and clear to auscultation bilaterally AUSCULTATION: clear to auscultation bilaterally Cardio: COMMON NORMALS: no JVD, regular rhythm, S1 normal heart sound present, S2 normal heart sound present and No murmurs present (Cardio) RHYTHM: regular rhythm HEART SOUNDS: S1 normal heart sound present and S2 normal heart sound present GI: COMMON NORMALS: Normal to inspection, nondistended, normoactive bowel sounds present, Soft to palpation and non-tender PALPATION: Yes Soft to palpation OTHER: Small midline incision healing well. Extremity: COMMON NORMALS: no joint enlargement and no pedal edema Neuro: COMMON NORMALS: patient oriented x3 and moves all extremities Skin: COMMON NORMALS: no rashes or lesions noted GENERAL SKIN EXAM: no rashes or lesions noted Urinary Catheter Management^: [place]: Cath Placed During This Visit: yes Urinary Catheter Date of Insertion: 12/17/20 Urinary Catheter Time of Insertion: 13:00 Data : 12/19/20 02:07 12/19/20 02:07 A&P Assessment and plan (1) S/P right hemicolectomy: Due to adenocarcinoma of the hepatic flexure. Doing well postoperatively. Tolerating oral diet. Has had bowel movements. Feels well, ready to return home. He is discharged today with follow-up with surgery. Status: Acute (2) Essential hypertension: Oxygenation stable. Status: Chronic (3) CAD (coronary artery disease): Resume aspirin. Continue beta-saleem, Imdur. Echo repeated with normal ejection fraction, normal diastolic function. 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 He has an appointment coming up. Status: Acute (4) Pulmonary hypertension: Home O2 eval requested prior to discharge. Status: Acute (5) Mixed hyperlipidemia: Status: Chronic Additional A&P Information Hypertension: At goal. Continue amlodipine 5 mg, carvedilol 12.5 twice daily, Imdur 30, enalapril 40 mg daily. Continue home dose of Cymbalta, Flomax, trazodone. Famotidine. Attestations Medical Necessity Statement*: Returning home. Coding Level of Care Code Acute [employer] [facility] for [facility] Fwd Diagnoses S/P right hemicolectomy Z90.49 Essential hypertension I10 CAD (coronary artery disease) I25.10 Pulmonary hypertension I27.20 Mixed hyperlipidemia E78.2
== END 2020-12-19 14:16 | disposition home or self-care (01) | DRG 331 ==
PROVIDERS: Student in an Organized Health Care Education/Training Program; Admitting Provider Surgery; PCP Internal Medicine; Visit Provider Surgery
PROC: 0DTF4ZZ Resection of Right Large Intestine, Percutaneous Endoscopic Approach (ICD-10-PCS; CPT 44205; principal; 2020-12-17 10:05)
DX: C18.3 Malignant neoplasm of hepatic flexure (principal); I25.9 Chronic ischemic heart disease, unspecified; N52.9 Male erectile dysfunction, unspecified; I10 Essential (primary) hypertension; M10.9 Gout, unspecified; E78.2 Mixed hyperlipidemia; Z87.442 Personal history of urinary calculi; E78.00 Pure hypercholesterolemia, unspecified; Z98.1 Arthrodesis status; I25.10 Atherosclerotic heart disease of native coronary artery without angina pectoris; I27.20 Pulmonary hypertension, unspecified
CPT/HCPCS: 36415; 51702; 80048; 80061; 82378; 83036; 83540; 83550; 83880; 84443; 85025; 86850; 86900; 87635; 88309; 93005; 93306; 94664; 96365; 96372; 97116; 97162; C9290; J0690; J0694; J1100; J1200; J1650; J2250; J2270; J2405; J2704; J2710; J3010; J3490; J7030

== ENCOUNTER 2020-12-29 19:24 | Inpatient (IN) | payer MEDICARE, OTHER, SELFPAY ==
[2020-12-29] VITALS (8 sets, daily range): BP systolic 91–107; BP diastolic 48–63; PULSE 80–92; RESP 15–26; TEMP 36.6; O2SAT 92–98; BMI 29.2
--- NOTE | 2020-12-29 19:57 | CTR_ITS ---
PROCEDURE INFORMATION: Exam: CT Abdomen And Pelvis Without Contrast Exam date and time: 12/29/2020 8:15 PM Age: 70 years old Clinical indication: Nausea and vomiting; Prior surgery; Surgery date: <1 month; Surgery type: Hemicolectomy 12/17, gb, hernia, back; Patient HX: C/O n/v/d since surgery 12/17; Additional info: Vomiting diarrhea post op TECHNIQUE: Imaging protocol: Computed tomography of the abdomen and pelvis without contrast. Radiation optimization: All CT scans at this facility use at least one of these dose optimization techniques: automated exposure control; mA and/or kV adjustment per patient size (includes targeted exams where dose is matched to clinical indication); or iterative reconstruction. Other contrast: Oral, 10 ml Omni 300, 10 ml in 450 ml water; COMPARISON: CT abdomen pelvis w con* [id number] 12/07/2020 11:56 AM RADIATION DOSE METRICS: Total DLP (mGy-cm): 1785.88 FINDINGS: There is infiltrate within the right lung base. There are marked degenerative changes of the spine. There are degenerative changes of both hips. There is minimal free intraperitoneal air consistent with recent surgery fat. There is a stable small hypodensity within the right lobe of the liver which is unchanged. There is no suspicious liver mass. There is no intrahepatic biliary dilatation. The patient is status post cholecystectomy. The pancreas is unremarkable. Splenic granulomas are present. There is no adrenal mass. Bilateral renal calculi are present. There is no hydronephrosis. There is no renal mass. The aorta is normal in caliber. The IVC is normal in caliber. There is no retroperitoneal adenopathy. There is no mesenteric adenopathy. There is a small hiatal hernia. There is no gastric wall thickening. There is small bowel distention in the upper abdomen extending down into the pelvis. Findings are concerning for small bowel obstruction. Postop ileus would be unusual at this stage. There is noted to be some swirling of the mesenteric vessels which can be seen with internal hernia. No discrete transition zone is identified. There appear to be changes of right-sided nephrectomy. There is some colonic distention with fluid consistent with ileus. There is some mild thickening of the wall of the sigmoid colon. Within the pelvis: The bladder is nondistended. The prostate gland and seminal vesicles are normal. There is a scant amount of free fluid within the pelvis. There is no inguinal adenopathy. There is no pelvic adenopathy. CT/CT abdomen pelvis wo con [id number] IMPRESSION: 1. Changes of right-sided colectomy. 2. Small bowel distention concerning for small bowel obstruction. There is noted to be some swirling of the mesenteric vessels and findings could represent an internal hernia. Continued follow-up is recommended. 3. There is some colonic distention with fluid suggesting ileus. There is also some mild thickening of the wall of the sigmoid colon. 4. Infiltrate within the right lung base. 5. Small amount of free intraperitoneal air consistent with the previous surgery. There is no evidence for bowel perforation. Radiation Dose CTDIVOL = (mGy): DLP = 1785.88 (mGy-cm)
--- NOTE | 2020-12-29 19:57 | CTR_ITS ---
PROCEDURE INFORMATION: Exam: CT Head Without Contrast Exam date and time: 12/29/2020 8:06 PM Age: 70 years old Clinical indication: Patient HX: C/O worsening dizziness since abd surgery 12/17/20 TECHNIQUE: Imaging protocol: Computed tomography of the head without contrast. Radiation optimization: All CT scans at this facility use at least one of these dose optimization techniques: automated exposure control; mA and/or kV adjustment per patient size (includes targeted exams where dose is matched to clinical indication); or iterative reconstruction. COMPARISON: CT head wo con* [id number] 11/26/2017 3:15 PM RADIATION DOSE METRICS: Total DLP (mGy-cm): 973.85 FINDINGS: There is mild generalized atrophy. There is some patient motion. There is no evidence for acute infarct. There is an old lacunar infarct within the left basal ganglia. There is no evidence for mass. There is no hemorrhage. There are no extra-axial fluid collections. There is no midline shift. The skull is intact. The visualized paranasal sinuses are well aerated. CT/CT head wo con* [id number] IMPRESSION: No evidence for acute infarct, mass or hemorrhage. Radiation Dose CTDIVOL = (mGy): DLP = 973.85 (mGy-cm)
--- NOTE | 2020-12-29 19:57 | XRR_ITS ---
PROCEDURE INFORMATION: Exam: XR Chest Exam date and time: 12/29/2020 8:02 PM Age: 70 years old Clinical indication: Dyspnea; Prior surgery; Surgery date: 6+ months; Surgery type: C spine, gb; Patient HX: Colon resection 10 days ago, increased SOB w/ exertion; Additional info: Dizzy TECHNIQUE: Imaging protocol: XR of the chest. Views: 1 view. COMPARISON: CR Chest 1 [place] [id number] 11/26/2017 2:59 PM FINDINGS: The lung drummond are hypoventilated. There is some atelectasis within the lung bases. There is no consolidation. There may be a small right pleural effusion. There is no pneumothorax. The heart size is normal. There are postop changes of the cervical spine. XR/XR chest 1V portable [id number] IMPRESSION: 1. Hypoventilated lungs. 2. Some atelectasis within the lung bases. 3. Possible small right pleural effusion.
--- NOTE | 2020-12-29 19:58 | ECG_ITS ---
[facility] Test Date: 2020-12-29 Pat Name: Daniel Patel Department: Room: Gender: Male Occupational Health Specialist: : [id number] Requested By: Everette Childs Order Number: [id number] Juan MD: Jesus Rangel M.D. Measurements Intervals [place] Rate: 78 P: 9 GA: 183 QRS: 39 QRSD: 109 T: 28 QT: 415 QTc: 473 Interpretive Statements SINUS RHYTHM LOW QRS VOLTAGE IN PRECORDIAL LEADS [QRS DEFLECTION < 1.0 mV IN CHEST LEADS] POSSIBLE INFERIOR MYOCARDIAL INFARCTION [30 ms Q WAVE IN II/aVF], PROBABLY OLD Compared to ECG 12/17/2020 09:28:49 Low QRS voltage now present Sinus bradycardia no longer present Myocardial infarct finding still present Electronically Signed On 12-30-2020 22:15:10 CDT by Jesus Rangel M.D. [email or web address]
[2020-12-29] MEDS: sodium chloride 0.9% 1,000 ML 999 ML IV ×2 (20:20→22:46)
[2020-12-29] MEDS: ondansetron 2 mg/ML SDV 2 mL 4 MG IVP (20:21)
[2020-12-29] MEDS: iohexol 300 mg/mL 50 mL Btl PO (20:22)
--- NOTE | 2020-12-29 21:00 | W.ED.DIZZY ---
HPI - Dizziness General: Chief Complaint: Dizziness Stated Complaint: RESP. DISTRESS Time Seen by Provider: 12/29/20 19:36 History of Present Illness: HPI Narrative: 70-year-old male who had surgery 10 days ago, hemicolectomy. He had done well postoperatively, and been released home. He then developed some vomiting and diarrhea. He states that he is vomited multiple times and had multiple episodes of diarrhea the past few days. He has been generally weak, and increasingly dizzy upon getting up from a seated or lying position. He denies significant belly pain, although there is some tenderness. He denies fever. No blood in the stool. MD elicited complaint: dizziness Pertinent past history: other Onset (ago): day(s) Timing: gradual onset Severity: moderate Description: sense of movement and lightheadedness Context: other History of similar symptoms: No Exacerbating factors: movement/ambulation Relieving factors: remaining still Associated symptoms: Reports nausea and vomiting; Denies chest pain, chills, cough, diaphoresis, fevers/chills, headache(s), nasal congestion, palpitations or short of breath Associated neuro symptoms: Deny confusion Review of Systems Const: Denies: fever(s), chills or diaphoresis ENMT: Denies: nasal congestion Card: Denies: chest pain or palpitations Resp: Denies: dyspnea GI: Reports: nausea and vomiting Neuro: Reports: weakness in extremities (Generalized) and dizziness; Denies: headache(s) or confusion PFS ED PFSH: Medical History (Updated 12/30/20 @ 00:23 by Everette Remy DO) CAD (coronary artery disease) Cardiac ischemia Colon cancer Erectile dysfunction Essential hypertension Gout Lumbar disc disease with radiculopathy Mixed hyperlipidemia Nephrolithiasis Pulmonary hypertension Pure hypercholesterolemia Surgical History (Updated 12/29/20 @ 21:19 by Alvaro Alvarado MD) H/O carpal tunnel repair H/O esophagogastroduodenoscopy H/O lithotripsy History of cataract surgery History of fusion of cervical spine C4-C7 ACDFF, with C6 corpectomy; 2002; [facility] C3-C4 ACDFF; 01/28/2018; [facility] History of lumbar surgery Left L4-L5, L5-S1 hemilaminotomy/discectomy/foraminotomy; 04/07/2019; [facility]. Right L3-L4 and reexploration left L4-L5 laminotomy/discectomy, [place]03[place] [facility] [place] Hx of cardiac catheterization Hx of cholecystectomy S/P bilateral inguinal hernia repair S/P right hemicolectomy Status post colonoscopy Family History Brother Cancer Stomach Father Emphysema lung Lung disease Cancer Mother Hypertension Cancer Diabetes Denies family history of CAD (coronary artery disease) Clotting disorder Dementia Chronic kidney disease (CKD) Suicide Anesthesia complication Bleeding disorder Stroke Social History Smoking and tobacco status: never smoked Second hand smoke exposure: No Alcohol intake: current Alcohol intake frequency: few times a week Lives independently: Yes Household members: spouse Marital status: Current occupational status: retired History of recent travel: No Physical Exam Const: GENERAL APPEARANCE: well developed ORIENTATION/CONSCIOUSNESS: Yes oriented to person, Yes oriented to place and Yes oriented to time HENMT: COMMON NORMALS: normocephalic, external ears normal and Normal external nose present HEAD & SCALP: normocephalic NOSE: Normal external nose present and No nasal discharge present EXTERNAL EAR: Yes external ears normal Eye: COMMON NORMALS: Equal, round and reactive pupils present, EOMs intact bilaterally and conjunctivae normal EYELID: eyelids normal CONJUNCTIVA: Yes conjunctivae normal PUPIL: Yes Equal, round and reactive pupils present Neck/C-Spine: GENERAL: No tracheal deviation Chest: COMMONS NORMALS: normal inspection of the chest CHEST: No tenderness Resp: COMMON NORMALS: clear to auscultation bilaterally EFFORT & INSPECTION: No tachypneic, No respiratory distress, No retractions, No uses accessory muscles and No tracheal deviation AUSCULTATION: clear to auscultation bilaterally, no rhonchi, no wheezes and lung sounds not diminished Cardio: COMMON NORMALS: regular rate and regular rhythm RATE: regular rate RHYTHM: regular rhythm HEART SOUNDS: no murmurs PERIPHERAL PULSES: radial pulses present GI: COMMON NORMALS: Soft to palpation INSPECTION: No abdominal distension AUSCULTATION: No Hyperactive bowel sounds present and No Hypoactive bowel sounds present PALPATION: Yes Soft to palpation, Yes Tenderness to palpation present (GI) (Diffuse), No Guarding due to palpation present (GI) and No Rigid due to palpation PERCUSSION: no dullness to percussion and no tympanic to percussion Neuro: SENSORIUM/ORIENTATION: Yes oriented to person, Yes oriented to place and Yes oriented to time Psych: COMMON NORMALS: mental status grossly normal Skin: COMMON NORMALS: no rashes or lesions noted GENERAL SKIN EXAM: no rashes or lesions noted Course Consultations: Consultation #1: sherin Consultation #2: sommer Vital Signs: Vital signs: Vital Signs Temperature 97.9 F 12/29/20 19:26 Pulse Rate 89 12/30/20 00:04 Respiratory Rate 24 H 12/29/20 23:46 Blood Pressure 95/62 12/30/20 00:04 Pulse Oximetry 97 12/29/20 23:46 MDM - Dizziness MDM Narrative: Medical decision making narrative: 70-year-old gentleman with a recent colectomy history. He has had vomiting and diarrhea at home. He presents generally very weak, dizzy, and dehydrated. His white blood cell count is 16.7. His hemoglobin is up at 10.3. His sodium is 125, potassium 6.3. Bicarbonate is 7. BUN 177, creatinine 14.4. Electrolytes were essentially normal week ago or so. He is obviously very fluid deficient. His belly is not tight or distended, or overly tender on exam. CT scan shows a possible small bowel obstruction, although not definite. There was consideration of internal hernia. The patient's surgeon has evaluated him in the ER, and evaluated the CT scan personally. This patient has gotten 3 L in the ER of fluid. His blood pressure has been as low as 75 systolic. Currently 100/61 with a heart rate of 80. He will go to the ICU. Lab Data: Labs: Lab Results 12/29/20 12/29/20 12/29/20 Range/Units 20:30 20:30 20:30 WBC Cancelled Corrected WBC Cancelled RBC Cancelled Hgb Cancelled Hct Cancelled MCV Cancelled MCH Cancelled MCHC Cancelled RDW Cancelled Plt Count Cancelled MPV Cancelled Gran % Cancelled Neut % (Auto) Cancelled Lymph % (Auto) Cancelled [place] % (Auto) Cancelled Eos % (Auto) Cancelled Baso % (Auto) Cancelled Neut # (Auto) Cancelled Lymph # (Auto) Cancelled [place] # (Auto) Cancelled Eos # (Auto) Cancelled Baso # (Auto) Cancelled Absolute Gran (aut o) Cancelled Nucleated RBC % (a uto) Cancelled Nucleated RBCs # Cancelled Sodium Cancelled Potassium Cancelled Chloride Cancelled Carbon Dioxide Cancelled Anion Gap Cancelled BUN Cancelled Creatinine Cancelled GFR Calculation Cancelled Glucose Cancelled Calculated Osmolal ity Cancelled Lactate Cancelled Calcium Cancelled Total Bilirubin Cancelled AST Cancelled ALT Cancelled Alkaline Phosphata se Cancelled C-Reactive Protein Cancelled Total Protein Cancelled Albumin Cancelled Globulin Cancelled Lipase Cancelled Urine Color (Yellow) Urine Appearance (CLEAR) Urine pH (5-7) Ur Specific Gravit y (1.005-1.030) Urine Protein (Negative) Urine Glucose (UA) (Normal) Urine Ketones (Negative) Urine Blood (Negative) Urine Nitrate (Negative) Urine Bilirubin (Negative) Urine Urobilinogen (Negative) mg/dL Ur Leukocyte Felipa ase (Negative) Urine RBC (0-2) /hpf Urine WBC (0-5) /hpf Ur Squamous Epith Cells (0-5) /hpf Amorphous Sediment /hpf Urine Bacteria (NONE) /hpf Urine Mucus /hpf 12/29/20 12/29/20 12/29/20 Range/Units 21:44 21:44 21:44 WBC 16.7 H Corrected WBC RBC 4.81 Hgb 10.3 L Hct 35.9 L MCV 74.6 L MCH 21.4 L MCHC 28.7 L RDW 23.9 H Plt Count 525 H MPV 9.6 Gran % Neut % (Auto) 88.1 Lymph % (Auto) 3.4 [place] % (Auto) 5.8 Eos % (Auto) 1.6 Baso % (Auto) 0.3 Neut # (Auto) 14.73 H Lymph # (Auto) 0.6 L [place] # (Auto) 1.0 H Eos # (Auto) 0.3 Baso # (Auto) 0.1 Absolute Gran (aut o) Nucleated RBC % (a uto) 0 Nucleated RBCs # 0.0 Sodium 125 L Potassium 6.3 H Chloride 84 L Carbon Dioxide 7 L* Anion Gap 40.3 H BUN 177 H* D Creatinine 14.4 H* GFR Calculation 3.4 L Glucose 102 Calculated Osmolal ity 319 H Lactate 0.8 Calcium 7.0 L Total Bilirubin 0.6 AST 13 ALT 9 Alkaline Phosphata se 89 C-Reactive Protein 133.6 H Total Protein 7.9 Albumin 3.3 L Globulin 4.6 Lipase 1256 H Urine Color (Yellow) Urine Appearance (CLEAR) Urine pH (5-7) Ur Specific Gravit y (1.005-1.030) Urine Protein (Negative) Urine Glucose (UA) (Normal) Urine Ketones (Negative) Urine Blood (Negative) Urine Nitrate (Negative) Urine Bilirubin (Negative) Urine Urobilinogen (Negative) mg/dL Ur Leukocyte Felipa ase (Negative) Urine RBC (0-2) /hpf Urine WBC (0-5) /hpf Ur Squamous Epith Cells (0-5) /hpf Amorphous Sediment /hpf Urine Bacteria (NONE) /hpf Urine Mucus /hpf 12/29/20 Range/Units 22:37 WBC Corrected WBC RBC Hgb Hct MCV MCH MCHC RDW Plt Count MPV Gran % Neut % (Auto) Lymph % (Auto) [place] % (Auto) Eos % (Auto) Baso % (Auto) Neut # (Auto) Lymph # (Auto) [place] # (Auto) Eos # (Auto) Baso # (Auto) Absolute Gran (aut o) Nucleated RBC % (a uto) Nucleated RBCs # Sodium Potassium Chloride Carbon Dioxide Anion Gap BUN Creatinine GFR Calculation Glucose Calculated Osmolal ity Lactate Calcium Total Bilirubin AST ALT Alkaline Phosphata se C-Reactive Protein Total Protein Albumin Globulin Lipase Urine Color Yellow (Yellow) Urine Appearance Sl cloudy A (CLEAR) Urine pH 5 (5-7) Ur Specific Gravit y 1.025 (1.005-1.030) Urine Protein 1+ H (Negative) Urine Glucose (UA) Norm (Normal) Urine Ketones Negative (Negative) Urine Blood 3+ H (Negative) Urine Nitrate Negative (Negative) Urine Bilirubin 1+ H (Negative) Urine Urobilinogen Norm (Negative) mg/dL Ur Leukocyte Felipa ase Trace H (Negative) Urine RBC >100 H (0-2) /hpf Urine WBC 5-10 H (0-5) /hpf Ur Squamous Epith Cells 0-4 H (0-5) /hpf Amorphous Sediment 2+ /hpf Urine Bacteria 1+ H (NONE) /hpf Urine Mucus 1+ /hpf Critical Care Time Critical Care Time: Critical Care Time: Yes Total Critical Care Time: 45 Attestation: This case had a high probability of a clinically significant, sudden, or life threatening deterioration of this patient's condition which required my full and direct attention, intervention and personal management. 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
[2020-12-29 21:48] LABS: Basophils # 0.1 10^3/uL (0.0-0.1); Basophils % 0.3 %; Eosinophils # 0.3 10^3/uL (0.0-0.8); Eosinophils % 1.6 %; Hematocrit 35.9 % (42.0-52.0); Hemoglobin 10.3 g/dL (11.7-16.6); Lymphocytes # 0.6 10^3/uL (0.8-4.8); Lymphocytes % 3.4 %; Mean Corpuscular HGB Conc 28.7 g/dL (30.0-36.0); Mean Corpuscular Hemoglobin 21.4 pg (28.0-34.0); Mean Corpuscular Volume 74.6 fL (80-94); Mean Platelet Volume 9.6 fL (7.4-10.4); Monocytes % 5.8 %; Neutrophils # 14.73 10^3/uL (1.8-7.7); Neutrophils % 88.1 %; Nucleated Red Blood Cells % 0 %; Platelet Count 525 10^3/cmm (130-400); Red Blood Count 4.81 10^6/uL (4.1-5.3); Red Cell Distribution Width 23.9 % (12.1-15.1); White Blood Count 16.7 10^3/uL (4.0-10.0)
[2020-12-29 22:05] LABS: Alanine Aminotransferase 9 U/L (0-41); Albumin Level 3.3 g/dL (3.5-5.2); Alkaline Phosphatase 89 IU/L (40-130); Anion Gap 40.3 (5-19); Aspartate Amino Transferase 13 U/L (0-40); C Reactive Protein 133.6 mg/L (0.0-4.9); Chloride 84 mmol/L (98-107); Globulin 4.6 g/dL (1.3-4.6); Glomerular Filtration Rate 3.4 mL/min (90-130); Glucose 102 mg/dL (65-115); Potassium 6.3 mmol/L (3.5-5.1); Sodium 125 mmol/L (136-145); Total Bilirubin 0.6 mg/dL (0.15-1.2); Total Protein 7.9 g/dL (6.6-8.7)
[2020-12-29 22:06] LABS: Lactate (Lactic Acid level) 0.8 mmol/L (0.5-2.2)
[2020-12-29 22:07] LABS: Carbon Dioxide 7 mmol/L (22-29)
[2020-12-29 22:18] LABS: Blood Urea Nitrogen 177 mg/dL (8-23); Lipase 1256 U/L (13-60); Osmolality Calculated 319 mOsm/kg (285-295)
[2020-12-29 22:56] LABS: Bilirubin Urine 1+ (Negative); Blood Urine 3+ (Negative); Glucose Urine UA Norm (Normal); Ketones Urine Negative (Negative); Nitrate Urine Negative (Negative); Protein Urine 1+ (Negative); Specific Gravity, Urine 1.025 (1.005-1.030); Urine Color Yellow (Yellow); pH Urine 5 (5-7)
[2020-12-29 22:57] LABS: Add Urine Microscopic? YES; Leukocyte Esterase Urine Trace (Negative); Urobilinogen Urine Norm (Negative)
[2020-12-29 23:01] LABS: Amorphous Sediment Urine 2+ /hpf; Bacteria Urine 1+ /hpf; Mucus Urine 1+ /hpf; RBC Urine >100 /hpf (0-2); Squamous Epithelial Cell Urine 0-4 /hpf (0-5)
[2020-12-29 23:02] LABS: Add Urine Culture? Yes
[2020-12-29 23:34] LABS: Reflex Lactate Order REFLEX LACTIC ORDERD
[2020-12-30] VITALS (75 sets, daily range): BP systolic 68–122; BP diastolic 41–79; PULSE 84–107; RESP 15–31; TEMP 35.9–37.3; O2SAT 73–100
[2020-12-30] MEDS: calcium gluconate 0.1 gm/mL 10% SDV 10mL 1 GM IVP (00:15)
--- NOTE | 2020-12-30 01:17 | PC.NURSE ---
ICU Admit; Patient arrived to ICU via gurney from ER at 0045, accompanied by ER staff X1, and son in law. Patient transferred to ICU bed with help of staff developer X4 without incident. Patient on RM Air with stable baseline VS recorded. Educated patient and family natural remedy consultant light, room orientation, and admit information. Answered all questions. Wound Assessment complete. Patient currently resting. Son in law at bedside during admission. No further needs at this time.
--- NOTE | 2020-12-30 01:53 | PM.HP ---
Providers/Chief Complaint Admitting Physician: Delfino Soriano Primary Care Provider: Eh Haddad MD Chief Complaint: RESP. DISTRESS History of Present Illness 70-year-old male with a past medical history significant for hypertension, dyslipidemia, erectile dysfunction, pulmonary hypertension, nonobstructive coronary artery disease, chronic grade 1 diastolic dysfunction and colon adenocarcinoma status post recent right sided hemicolectomy on 12/18/2020 who presented to the hospital with nausea, vomiting and abdominal discomfort. Patient stated these symptoms start post op after discharge on 12/19. Also noted associated dizziness. Denied any fever. No reported chest pain or dyspnea. Laboratory workup on arrival today showed a WBC of 16.7, hemoglobin of 10.3, hematocrit 35.9 and platelet count of 525. Sodium 125, potassium 6.3, chloride 84, bicarb 7, BUN 177 and creatinine of 14.4. lactic acid of 1.1. Lipase of 1256. UA showed trace leukocyte esterase, > 100 RBC, 5-10 WBC Imaging studies included a CT abd/Pelvis which showed small bowel distention concerning for small bowel obstruction. Also noted to have some colonic distention with fluid suggesting ileum and mild thickening of the sigmoid colon. No evidence of bowel perforation. Chest x-ray showed small right pleural effusion. CT head was also done which also did not show any acute abnormality. Patient was given calcium gluconate in ER and subsequently admitted. Review of Systems General: Reports: 10 or more systems reviewed and unremarkable except in HPI and below Medications/Allergies Home Medications Medication Instructions Recorded Confirmed Last Taken Type aspirin 325 mg tablet 325 mg PO DAILY tab 08/10/19 12/14/20 12/10/20 History amlodipine 10 mg tablet 5 mg PO DAILY #90 tab 10/24/19 12/14/20 12/17/20 Rx duloxetine 30 mg capsule,delayed 90 mg PO DAILY #270 cap 02/27/20 12/14/20 12/16/20 Rx release furosemide 20 mg tablet 20 mg PO QAM #90 tab 05/21/20 12/14/20 12/16/20 Rx tamsulosin 0.4 mg capsule See Rx Instructions .ROUTE 10/22/20 12/14/20 12/16/20 Rx .COMPLEX #90 cap trazodone 100 mg tablet 100 mg PO .qhs PRN #30 tab 11/28/20 12/14/20 12/16/20 Rx carvedilol 12.5 mg tablet 12.5 mg PO BID #180 tab 11/29/20 12/14/20 12/17/20 Rx isosorbide mononitrate 30 mg 30 mg PO QAM #90 tab 11/29/20 12/14/20 12/16/20 Rx tablet,extended release 24 hr potassium chloride 20 mEq 20 meq PO DAILY 30 Days #30 tab 11/29/20 12/14/20 12/16/20 Rx tablet,extended release enalapril maleate 20 mg tablet 40 mg PO DAILY #60 tab 12/10/20 12/14/20 12/17/20 Rx hydrocodone-acetaminophen 1 tab PO Q6H PRN #20 tab 12/19/20 Unknown Rx ondansetron HCl [Zofran] 4 mg PO Q6H PRN #20 tab 12/19/20 Unknown Rx sennosides-docusate sodium [Senna 1 tab-cap PO BID #30 tab 12/19/20 Unknown Rx with Docusate Sodium] metoclopramide HCl 10 mg tablet 10 mg PO TID PRN #30 tab 12/25/20 Unknown Rx pantoprazole 40 mg tablet,delayed 40 mg PO DAILY #30 tab 12/25/20 Unknown Rx release Allergies Allergy/AdvReac Type Severity Reaction Status Date / Time No Known Allergies Allergy Verified 12/17/20 09:15 PFSH Acute PFSH: Medical History (Updated 12/30/20 @ 00:23 by Everette Remy DO) CAD (coronary artery disease) Cardiac ischemia Colon cancer Erectile dysfunction Essential hypertension Gout Lumbar disc disease with radiculopathy Mixed hyperlipidemia Nephrolithiasis Pulmonary hypertension Pure hypercholesterolemia Surgical History (Updated 12/29/20 @ 21:19 by Alvaro Alvarado MD) H/O carpal tunnel repair H/O esophagogastroduodenoscopy H/O lithotripsy History of cataract surgery History of fusion of cervical spine C4-C7 ACDFF, with C6 corpectomy; 2002; [facility] C3-C4 ACDFF; 01/28/2018; [facility] History of lumbar surgery Left L4-L5, L5-S1 hemilaminotomy/discectomy/foraminotomy; 04/07/2019; [facility]. Right L3-L4 and reexploration left L4-L5 laminotomy/[place]cectomy, [place]03/[place], [facility] [place] [facility] [place] Hx of cardiac catheterization Hx of cholecystectomy S/P bilateral inguinal hernia repair S/P right hemicolectomy Status post colonoscopy Family History Brother Cancer Stomach Father Emphysema lung Lung disease Cancer Mother Hypertension Cancer Diabetes Denies family history of CAD (coronary artery disease) Clotting disorder Dementia Chronic kidney disease (CKD) Suicide Anesthesia complication Bleeding disorder Stroke Social History Smoking and tobacco status: never smoked Second hand smoke exposure: No Alcohol intake: current Alcohol intake frequency: few times a week Lives independently: Yes Household members: spouse Marital status: Current occupational status: retired History of recent travel: No Vitals/I&O/Wt Last Vital Signs Temp 96.7 F L 12/30/20 00:52 Pulse 92 12/30/20 04:00 Resp 26 H 12/30/20 04:00 BP 102/58 12/30/20 04:00 Pulse Ox 90 12/30/20 04:00 12/29/20 12/29/20 12/30/20 14:59 22:59 06:59 Intake Total 1000 / 1000 Balance 1000 / 1000 Weight last 48 hrs Weight 92.533 kg Physical Exam Narrative: EXAM NARRATIVE: General - Alert, awake, oriented x 3 HEENT : Grossly unremarkable CVS : RRR CHest : CTABL ABD; Soft , Midline insulin - stable Ext : no edema Urinary Catheter Management^: Samaniego: Cath Placed During This Visit: yes Urinary Catheter Date of Insertion: 12/30/20 Urinary Catheter Time of Insertion: 04:03 Data : 12/29/20 21:44 12/29/20 21:44 A&P Assessment and plan (1) Acute renal failure: Status: Acute Qualifiers: Acute renal failure type: unspecified Qualified Code(s): N17.9 - Acute kidney failure, unspecified (2) Metabolic acidosis: Status: Acute (3) Acute hyperkalemia: Status: Acute (4) S/P right hemicolectomy: Status: Acute Acute Renal Failure / Hyperkalemia / Hyponatremia / AG metabolic acidosis - Place samaniego - Consult nephrology - S/p calcium gluconate - Repeat BMP in am - Monitor u/o - Started on bicarbonate gtt - May potentially require HD Nausea/vomiting possible SBO vs Ileus - No further emesis or abd pain - Will hold off on NG - Consult surgery in am - If starts to vomit then place NG - Empirically cover with zosyn Additional medical Problems Adenocarcinoma s/p recent Hemicolectomy Hypertension hx of Nephrolithiasis Coronary artery disease GI ppx - Protonix 40 mg IV daily DVT ppx - Heparin 5000 unit q12 Attestations Medical Necessity Statement*: Patient will require > 2 midnight stay in hospital for eval and treatment. Time Spent in Patient Care: Greater than 35 minutes (>than 50% of time spent in counselling and/or direct pt care on unit). Coding Level of Care Code Acute Electric Organ Inspector And Repairer for g Fwd Diagnoses Acute renal failure N17.9 Acute renal failure type: unspecified Metabolic acidosis E87.2 Acute hyperkalemia E87.5 S/P right hemicolectomy Z90.49
--- NOTE | 2020-12-30 02:00 | PC.NURSE ---
Code Status; RN and patient discussed patient's personal wishes in the event an life threatening emergency where to occur. Patient verbalized a want to be full code if his heart where to stop. RN clarified patient's wishes regarding medications, intubation, and CPR. Patient verbalized want for all above to be initiated if needed. MD notified. Code status order placed in chart as indicated.
[2020-12-30 02:09] LABS: Lactic Acid level (Lactate) 1.1 mmol/L (0.5-2.2)
[2020-12-30] MEDS: sodium chloride 0.9% 1,000 ML 100 ML IV (03:40)
[2020-12-30] MEDS: sodium bicarbonate 50 MEQ in sodium chloride 0.45% 1,000 ML 100 MEQ IV (05:18)
[2020-12-30] MEDS: pantoprazole 40 mg SDV IVP (05:22)
[2020-12-30] MEDS: heparin 5,000 unit/mL INJ 1 mL 5000 UNIT SUBCUT ×2 (05:22→17:37)
[2020-12-30] MEDS: piperacillin-tazobactam 3.375 GM in sodium chloride 0.9% (plus) 50 ML IV ×2 (06:38→17:36)
[2020-12-30 06:44] LABS: Anion Gap 39.1 (5-19); Chloride 88 mmol/L (98-107); Glomerular Filtration Rate 3.7 mL/min (90-130); Glucose 71 mg/dL (65-115); Potassium 6.1 mmol/L (3.5-5.1); Sodium 126 mmol/L (136-145)
--- NOTE | 2020-12-30 06:49 | PC.NURSE ---
New Orders; MD Bo came to patient's bedside. Discussed patient's pertinent medical history, and educated on current POC with patient. New orders for NS @100mL/hr, samaniego placement, and new BMP lab to be drawn. Orders placed as indicated by .
[2020-12-30 06:51] LABS: Procalcitonin 5.12 ng/mL (0-0.5)
[2020-12-30 07:02] LABS: Osmolality Calculated 318 mOsm/kg (285-295)
[2020-12-30 07:04] LABS: Carbon Dioxide 5 mmol/L (22-29)
[2020-12-30 07:05] LABS: Blood Urea Nitrogen 175 mg/dL (8-23)
--- NOTE | 2020-12-30 08:57 | USR_ITS ---
PROCEDURE INFORMATION: Exam: US Retroperitoneal; Complete; Kidneys and Bladder Exam date and time: 12/30/2020 11:25 AM Age: 70 years old Clinical indication: Abnormal findings; Abnormal lab test; Abnormal kidney function lab tests; Additional info: Valentino TECHNIQUE: Imaging protocol: Real-time ultrasound of the retroperitoneum with image documentation. Complete exam focused on the kidneys and bladder. COMPARISON: CT abdomen pelvis wo con [id number] 12/29/2020 9:29 PM FINDINGS: Right kidney: Small 5 mm a stones. No hydronephrosis. 12 cm x 5.7 cm x 4.9 cm Left kidney: Normal. No stones. No hydronephrosis. 13.9 cm x 7.2 cm x 5.2 cm Urinary bladder: Not visible (Oreilly catheter) Prior examination showed a 6 mm stone in the central collecting system of the right kidney US/US renal BI* [id number] IMPRESSION: 1. There is a 5 mm right renal caliceal stone 2. Otherwise Unremarkable kidneys and bladder.
--- NOTE | 2020-12-30 09:17 | PM.CONSULT ---
Providers/Reason For Consult Consulting Physician/Specialty*: Nephrology Reason for Consult*: Acute renal failure Attending Physician: Pierre Hermosillo MD Primary Care Provider: Eh Haddad MD History of Present Illness History of Present Illness Thank you for consultation, today I had the pleasure of reviewing this 41-year-old female. At this time she is not conversant, and my questions were met with silence although it did appear that she was awake and looking at the telemedicine monitor. The history is thus taken fromv Dr Hermosillo, the bedside RN and the EMR. She has recurrent hospitalizations for nausea, vomiting, abdominal discomfort, pancreatitis attributable to Thank you for consultation, today at the pleasure of reviewing this very pleasant 70-year-old gentleman for evaluation of renal failure. Recently was hospitalized between 12/17 and 12/19 for extended right hemicolectomy for adenocarcinoma of the hepatic flexure which was undertaken on 12/17. He did have a return of bowel function on postop day 2, felt well and was subsequently discharged, however, following discharge he felt progressively unwell, with progressive nausea, vomiting, very poor oral intake and diarrhea. Given how weak he felt he subsequently returned to the hospital for evaluation was found to have overt renal failure. He is compliant with his outpatient medications which include enalapril, Lasix, potassium chloride and full dose aspirin which he last took on Thursday. He is making urine, clear pale yellow urine to the tune of 600 mL over the last nursing shift since hospitalization. No prior history of acute or chronic kidney disease, his creatinine at the time of his discharge was 0.6 and on admission yesterday evening was 14.4, his creatinine did marginally improved to 13.5 this morning at 6 AM. No history of acute or chronic kidney disease, has never seen a binder stripper hand or received hemodialysis. No history of prostate disease, bladder outflow obstructive symptoms. No uremic symptoms at this time, no extremity edema or other hypervolemic symptoms. No exposure to other potentially nephrotoxic substances. Review of Systems Narrative: ROS - 12 point review of systems completed per HPI and subjective assessment, this includes Constitutional: No weakness, fatigue Respiratory: No SOB on exertion, comfortable at rest CardioVasc: No chest pain, palpitations Gastrointestinal: No nausea, no vomiting Neurological: No seizures, no AMS Derm: No new rashes, lesions or wounds Immunological: No seasonal and no food allergies Meds/Allergies Home Medications and Allergies Home Medications Medication Instructions Recorded Confirmed Last Taken Type aspirin 325 mg tablet 325 mg PO DAILY tab 08/10/19 12/14/20 12/10/20 History amlodipine 10 mg tablet 5 mg PO DAILY #90 tab 10/24/19 12/14/20 12/17/20 Rx duloxetine 30 mg capsule,delayed 90 mg PO DAILY #270 cap 02/27/20 12/14/20 12/16/20 Rx release furosemide 20 mg tablet 20 mg PO QAM #90 tab 05/21/20 12/14/20 12/16/20 Rx tamsulosin 0.4 mg capsule See Rx Instructions .ROUTE 10/22/20 12/14/20 12/16/20 Rx .COMPLEX #90 cap trazodone 100 mg tablet 100 mg PO .qhs PRN #30 tab 11/28/20 12/14/20 12/16/20 Rx carvedilol 12.5 mg tablet 12.5 mg PO BID #180 tab 11/29/20 12/14/20 12/17/20 Rx isosorbide mononitrate 30 mg 30 mg PO QAM #90 tab 11/29/20 12/14/20 12/16/20 Rx tablet,extended release 24 hr potassium chloride 20 mEq 20 meq PO DAILY 30 Days #30 tab 11/29/20 12/14/20 12/16/20 Rx tablet,extended release enalapril maleate 20 mg tablet 40 mg PO DAILY #60 tab 12/10/20 12/14/20 12/17/20 Rx hydrocodone-acetaminophen 1 tab PO Q6H PRN #20 tab 12/19/20 Unknown Rx ondansetron HCl [Zofran] 4 mg PO Q6H PRN #20 tab 12/19/20 Unknown Rx sennosides-docusate sodium [Senna 1 tab-cap PO BID #30 tab 12/19/20 Unknown Rx with Docusate Sodium] metoclopramide HCl 10 mg tablet 10 mg PO TID PRN #30 tab 12/25/20 Unknown Rx pantoprazole 40 mg tablet,delayed 40 mg PO DAILY #30 tab 12/25/20 Unknown Rx release Allergies Allergy/AdvReac Type Severity Reaction Status Date / Time No Known Allergies Allergy Verified 12/17/20 09:15 Current Medications Current Medications Generic Name Dose Route Start Last Admin Trade Name Freq PRN Reason Stop Dose Admin Heparin Sodium (Beef Lung) 5,000 unit 12/30/20 05:00 12/30/20 05:22 Heparin 5,000 Unit/Ml Inj 1 Ml SUBCUT 5,000 unit Q12H THA Administration Sodium Bicarbonate 50 meq/ 1,050 mls @ 100 mls/hr 12/30/20 05:00 12/30/20 05:18 Sodium Chloride IV 100 mls/hr .[id number] THA Administration Piperacillin Sod/Tazobactam 50 mls @ 12.5 mls/hr 12/30/20 06:00 12/30/20 06:38 Sod 3.375 gm/ Sodium Chloride IV 12.5 mls/hr Q12H THA Administration Protocol Pantoprazole Sodium 40 mg 12/30/20 05:00 12/30/20 05:22 Pantoprazole 40 Mg Sdv IVP 40 mg Q24H THA Administration PFSH Acute PFSH: Medical History (Updated 12/30/20 @ 00:23 by Everette Remy DO) CAD (coronary artery disease) Cardiac ischemia Colon cancer Erectile dysfunction Essential hypertension Gout Lumbar disc disease with radiculopathy Mixed hyperlipidemia Nephrolithiasis Pulmonary hypertension Pure hypercholesterolemia Surgical History (Updated 12/29/20 @ 21:19 by Alvaro Alvarado MD) H/O carpal tunnel repair H/O esophagogastroduodenoscopy H/O lithotripsy History of cataract surgery History of fusion of cervical spine C4-C7 ACDFF, with C6 corpectomy; 2002; [facility] C3-C4 ACDFF; 01/28/2018; [facility] History of lumbar surgery Left L4-L5, L5-S1 hemilaminotomy/discectomy/foraminotomy; 04/07/2019; [facility]. Right L3-L4 and reexploration left L4-L5 laminotomy/discectomy, 10/03/2019, [facility] [place] Hx of cardiac catheterization Hx of cholecystectomy S/P bilateral inguinal hernia repair S/P right hemicolectomy Status post colonoscopy Family History Brother Cancer Stomach Father Emphysema lung Lung disease Cancer Mother Hypertension Cancer Diabetes Denies family history of CAD (coronary artery disease) Clotting disorder Dementia Chronic kidney disease (CKD) Suicide Anesthesia complication Bleeding disorder Stroke Social History Smoking and tobacco status: never smoked Second hand smoke exposure: No Alcohol intake: current Alcohol intake frequency: few times a week Lives independently: Yes Household members: spouse Marital status: Current occupational status: retired History of recent travel: No Vitals/I&O/Wt Last Vital Signs Temp 97.5 F L 12/30/20 04:05 Pulse 92 12/30/20 06:00 Resp 27 H 12/30/20 05:45 BP 113/63 12/30/20 05:45 Pulse Ox 96 12/30/20 05:25 12/29/20 12/30/20 12/30/20 22:59 06:59 14:59 Intake Total 1210 / 1210 25 / 25 Output Total 250 / 250 350 / 350 Balance 960 / 960 -325 / -325 Weight last 48 hrs Weight 92.533 kg Physical Exam Narrative: EXAM NARRATIVE: Constitutional: Awake, comfortable HEENT: Wet mucosa, no jvp, non icteric Lungs: Bilaterally clear without discernible wheeze or rales in all lung zones CVS: S1 S2, no murmurs Abdo: Soft, BS ok Ext 4: Minimal edema, peripheral perfusion with no cyanosis Neurological: Grossly non-focal Urinary Catheter Management^: Oreilly: Cath Placed During This Visit: yes Reason for Continuing Indwelling Catheter: Accurate Measurement of Urinary Output in Critically Ill Patients Urinary Catheter Date of Insertion: 12/30/20 Urinary Catheter Time of Insertion: 04:03 A&P Additional A&P Information 1. Acute renal failure Consistent with severe prerenal azotemia from very poor oral intake in combination with volume loss from diarrhea, diuretics, in the setting of decreased glomerular pressure from ANA inhibitor effect. His urine production is reassuring as is his marginal improvement in serum creatinine. With this in mind, no acute indication for hemodialysis at this time we will give him a chance to recover over the next 24-48 hours. I will request labs done every 4 hours i.e. a basic metabolic panel to trend his improvement. Imaging on admission demonstrated no evidence of obstructive kidney disease. Continue IV hydration with D5 half NS with 50 M EQ sodium bicarb at increased rate of 150 mL/h We will do work-up to include urinalysis, urine sodium, urine creatinine, CPK, TSH, uric acid. Strict ins and outs Avoid usual nephrotoxic agents Dose medication for GFR less than 15. 2. Chemistry Severe aberration of serum chemistry including high anion gap metabolic acidosis, hyponatremia, hyperkalemia Continue IV hydration with D5 half NS with 50 M EQ sodium bicarb at increased rate of 150 mL/h Every 4 BMP. 3. Status post recent hemicolectomy CT scan suggestive of small bowel obstruction, surgery to input. Last bowel movement yesterday, loose diarrhea. Good bowel sounds on examination. 4. Hemodynamics Currently hemodynamics look robust, continue to monitor hemodynamics closely during hospitalization Thank you for consultation, it is a pleasure to follow these cases with you Exam and interview performed with aid of bedside RN using telemedicine Time spent 20 min inc > 50% of time in face to face counseling Amadeo Corbett MD [facility] [phone] Consult Attestations Medical Necessity Statement: Eval for WANDA Coding Level of Care Code Acute Package Sorter for Kathyg Julián
[2020-12-30 10:11] LABS: Lactate (Lactic Acid level) 0.5 mmol/L (0.5-2.2)
--- NOTE | 2020-12-30 10:20 | PC.NURSE ---
Pt's daughter, Dina Marti , called unit for an update.
[2020-12-30 10:23] LABS: Creatine Phosphokinase 71 U/L (39-308); Thyroid Stimulating Hormone 1.05 uIU/mL (0.27-4.20); Uric Acid 15.6 mg/dL (3.4-7.0)
[2020-12-30 10:30] LABS: Phosphorus 12.4 mg/dL (2.5-4.5)
[2020-12-30 11:11] LABS: Bilirubin Urine 2+ (Negative); Blood Urine 3+ (Negative); Glucose Urine UA Norm (Normal); Ketones Urine Negative (Negative); Leukocyte Esterase Urine Negative (Negative); Nitrate Urine Negative (Negative); Protein Urine 1+ (Negative); Urine Appearance Cloudy (CLEAR); Urine Color Yellow (Yellow); Urobilinogen Urine Norm (Negative); pH Urine 5 (5-7)
[2020-12-30 11:12] LABS: WBC Urine 0-4 /hpf (0-5)
[2020-12-30 11:13] LABS: Bacteria Urine 1+ /hpf; Squamous Epithelial Cell Urine RARE /hpf (0-5)
[2020-12-30 11:14] LABS: Add Urine Culture? Yes; Mucus Urine TRACE /hpf; RBC Urine 80-100 /hpf (0-2)
--- NOTE | 2020-12-30 11:29 | PM.PN ---
Subjective Subjective: Interval history: Patient tells me that when he got home from his previous hospitalization, he just was not feeling well, was feeling dizzy, he was having watery bowel movements, poor oral intake, no fevers, no chills, no shortness of breath, but his urination also he tells me decreased, no dysuria, no here hematuria, no history of UTIs, no history of nephrolithiasis, no history of falls Vitals/I&O/Wt Last Vital Signs Temp 97.8 F 12/30/20 07:00 Pulse 93 12/30/20 10:00 Resp 31 H 12/30/20 10:00 BP 103/50 12/30/20 10:00 Pulse Ox 99 12/30/20 10:00 12/29/20 12/30/20 12/30/20 22:59 06:59 14:59 Intake Total 1210 / 1210 25 / 25 Output Total 250 / 250 350 / 350 Balance 960 / 960 -325 / -325 Weight last 48 hrs Weight 92.533 kg Physical Exam Const: COMMON NORMALS: no acute distress ORIENTATION/CONSCIOUSNESS: Yes awake, Yes oriented to person and Yes oriented to place Resp: COMMON NORMALS: normal respiratory effort, No retractions, No use of accessory muscles and clear to auscultation bilaterally AUSCULTATION: clear to auscultation bilaterally Cardio: COMMON NORMALS: regular rate, regular rhythm, S1 normal heart sound present and S2 normal heart sound present RATE: regular rate RHYTHM: regular rhythm HEART SOUNDS: S1 normal heart sound present, S2 normal heart sound present and no murmurs GI: COMMON NORMALS: Normal to inspection, nondistended, normoactive bowel sounds present, Soft to palpation and non-tender PALPATION: Yes Soft to palpation Extremity: COMMON NORMALS: no pedal edema Neuro: SENSORIUM/ORIENTATION: Yes oriented to person and Yes oriented to place Urinary Catheter Management^: Oreilly: Cath Placed During This Visit: yes Reason for Continuing Indwelling Catheter: Accurate Measurement of Urinary Output in Critically Ill Patients Urinary Catheter Date of Insertion: 12/30/20 Urinary Catheter Time of Insertion: 04:03 Data : 12/29/20 21:44 12/30/20 06:13 A&P Assessment and plan (1) Acute renal failure: Status: Acute Qualifiers: Acute renal failure type: unspecified Qualified Code(s): N17.9 - Acute kidney failure, unspecified (2) Metabolic acidosis: Status: Acute (3) Acute hyperkalemia: Status: Acute (4) S/P right hemicolectomy: Status: Acute (5) CAD (coronary artery disease): Status: Acute (6) Pulmonary hypertension: Status: Acute Acute Renal Failure / Hyperkalemia / Hyponatremia / AG metabolic acidosis -Likely prerenal from poor oral oral hydration, dehydration, diarrhea, polypharmacy, UTI -Oreilly catheter in place - Consult nephrology - S/p calcium gluconate - Repeat BMP every 6 hours -Currently on D5 half-normal saline with 50 mcg of sodium bicarb at 150 cc -CT scan of the abdomen and pelvis no obstructive uropathy, no radiologic evidence of pyelonephritis -UA does show evidence of UTI, follow urine cultures, follow blood cultures -We will order renal ultrasound -Urine studies -Lactic acid within normal limits - Monitor u/o, 600 cc of urine output - May potentially require HD depending on urine output, and electrolyte abnormalities Nausea/vomiting possible SBO vs Ileus -CT scan of the abdomen pelvis shows small bowel distention concerning for small bowel obstruction. There is noted to be some swirling of the mesenteric vessels and findings could represent an internal hernia. Continued follow-up is recommend. There is some colonic distention with fluid suggesting ileus. There is also some mild thickening of the wall of the sigmoid colon. -Currently no nausea, vomiting, having liquidy bowel movements -Hold off on NG tube if starts to vomit then place NG -Empirically cover with zosyn -General surgery on consult UTI, follow urine cultures, follow blood cultures, continue Zosyn Right lung infiltrate, no shortness of breath, afebrile, on Zosyn for now Additional medical Problems Adenocarcinoma s/p recent Hemicolectomy Hypertension hx of Nephrolithiasis Coronary artery disease History of pulmonary hypertension, maintain O2 sats greater than 92%, incentive spirometer, flutter valve CAD -no active chest pain, -Cardiac catheterization 2017 showed normal left main, normal LAD, mildly eccentric plaque in the circumflex, tapering narrowing of about 40% in the RCA with one PDA branch with an ostial narrowing of 30-40%. LVEF of 55% -Echocardiogram on last admission showed an EF of 50 to 55%, normal diastolic function GI ppx - Protonix 40 mg IV daily DVT ppx - Heparin 5000 unit q12 Attestations Medical Necessity Statement*: Patient patient requires hospitalization for acute renal failure, possible SBO, UTI Coding Level of Care Code Acute Registered Account Administrator for Chg Fwd Diagnoses Acute renal failure N17.9 Acute renal failure type: unspecified Metabolic acidosis E87.2 Acute hyperkalemia E87.5 S/P right hemicolectomy Z90.49 CAD (coronary artery disease) I25.10 Pulmonary hypertension I27.20
[2020-12-30 11:39] LABS: Urine Creatinine 105 mg/dL (39-259)
--- NOTE | 2020-12-30 11:44 | PC.NURSE ---
Pt up to [facility]. Pt steady but work of breathing increased. O2 sats stayed above 95%. Per pt it exhausted it.
[2020-12-30 12:07] LABS: Urea Nitrogen,Urine Random 445 mg/dL
[2020-12-30 12:09] LABS: Creatinine Urine, Random 105 mg/dL (39-259); Microalbum Creatinine Ratio Ur 133 mg/dL (0-20); Microalbumin Random Urine 14 ug/dL (0-20)
[2020-12-30 12:10] LABS: Potassium, Radom Urine 16 mmol/L; Urine Random Chloride 26 mmol/L; Urine Random Sodium 54 mmol/L
[2020-12-30 12:33] LABS: Anion Gap 40.7 (5-19); Calcium 6.8 mg/dL (8.5-10.5); Chloride 91 mmol/L (98-107); Glomerular Filtration Rate 4.2 mL/min (90-130); Glucose 90 mg/dL (65-115); Potassium 5.7 mmol/L (3.5-5.1); Sodium 131 mmol/L (136-145)
[2020-12-30 12:45] LABS: Osmolality Calculated 328 mOsm/kg (285-295)
[2020-12-30 12:47] LABS: Blood Urea Nitrogen 172 mg/dL (8-23); Carbon Dioxide 5 mmol/L (22-29)
[2020-12-30] MEDS: SODIUM BICARBONATE IV ×2 (13:29→20:14)
[2020-12-30] MEDS: DEXTROSE 5% IV ×2 (13:29→20:14)
[2020-12-30] MEDS: SOD CHLORIDE 0.45% IV ×2 (13:29→20:14)
--- NOTE | 2020-12-30 15:05 | P.CONIM_ITS ---
Providers/Reason For Consult Consulting Physician/Specialty*: General Surgery Dr. Alvarado Reason for Consult*: Postop Attending Physician: Pierre Hermosillo MD Primary Care Provider: Eh Haddad MD History of Present Illness History of Present Illness Daniel Patel is a 70 year old male who had undergone extended right hemicolectomy on 12/17/2020 and was discharged home on postop day 2 since he was tolerating a diet and had return of bowel function. 3 4 days after he was disch arged he started having nausea and vomiting couple of times a day. He continued to have couple of loose bowel movements a day. He states that his oral intake was minimal since he did not have the appetite. I spoke to him about a week after surgery and at that point had put him on Reglan and Protonix and he was scheduled for a follow-up this week. He presented to the ER last night with dizziness and weakness. Patient states that he has continued to have loose stools. Denies any bleeding per rectum. In the ER he was noted to be in acute renal failure with a creatinine of 14.4, which was 0.6 at time of discharge. CT abdomen pelvis did not show any evidence of obstruction though there was dilated bowel loops with concerns for possible internal hernia. I had seen him in the ER last night prior to work-up. Today he is tolerating a clear liquid diet, had loose bowel movements but denies any nausea or vomiting. His abdominal pain is not significant. No fevers or chills Review of Systems General: Reports: 10 or more systems reviewed and unremarkable except in HPI and below Meds/Allergies Home Medications and Allergies Home Medications Medication Instructions Recorded Confirmed Last Taken Type aspirin 325 mg tablet 325 mg PO DAILY tab 08/10/19 12/30/20 12/10/20 History amlodipine 10 mg tablet 5 mg PO DAILY #90 tab 10/24/19 12/30/20 12/17/20 Rx furosemide 20 mg tablet 20 mg PO QAM #90 tab 05/21/20 12/30/20 12/16/20 Rx carvedilol 12.5 mg tablet 12.5 mg PO BID #180 tab 11/29/20 12/30/20 12/17/20 Rx isosorbide mononitrate 30 mg 30 mg PO QAM #90 tab 11/29/20 12/30/20 12/16/20 Rx tablet,extended release 24 hr potassium chloride 20 mEq 20 meq PO DAILY 30 Days #30 tab 11/29/20 12/30/20 12/16/20 Rx tablet,extended release enalapril maleate 20 mg tablet 40 mg PO DAILY #60 tab 12/10/20 12/30/20 12/17/20 Rx hydrocodone-acetaminophen 1 tab PO Q6H PRN #20 tab 12/19/20 12/30/20 Unknown Rx ondansetron HCl [Zofran] 4 mg PO Q6H PRN #20 tab 12/19/20 12/30/20 Unknown Rx sennosides-docusate sodium [Senna 1 tab-cap PO BID #30 tab 12/19/20 12/30/20 Unknown Rx with Docusate Sodium] metoclopramide HCl 10 mg tablet 10 mg PO TID PRN #30 tab 12/25/20 12/30/20 Unknown Rx pantoprazole 40 mg tablet,delayed 40 mg PO DAILY #30 tab 12/25/20 12/30/20 Unknown Rx release duloxetine 30 - 90 mg PO DAILY 12/30/20 12/30/20 Unknown History tamsulosin 0.4 mg PO DAILY 12/30/20 12/30/20 Unknown History trazodone 100 mg PO BEDTIME PRN 12/30/20 12/30/20 Unknown History Allergies Allergy/AdvReac Type Severity Reaction Status Date / Time No Known Allergies Allergy Verified 12/17/20 09:15 Current Medications Current Medications Generic Name Dose Route Start Last Admin Trade Name Freq PRN Reason Stop Dose Admin Heparin Sodium (Beef Lung) 5,000 unit 12/30/20 05:00 12/30/20 05:22 Heparin 5,000 Unit/Ml Inj 1 Ml SUBCUT 5,000 unit Q12H THA Administration Piperacillin Sod/Tazobactam 50 mls @ 12.5 mls/hr 12/30/20 06:00 12/30/20 10:40 Sod 3.375 gm/ Sodium Chloride IV Infused Q12H THA Infusion Protocol Sodium Bicarbonate 50 meq/ 1,050 mls @ 150 mls/hr 12/30/20 12:30 12/30/20 13:29 Dextrose/Sodium Chloride IV 150 mls/hr .Q7H THA Administration Pantoprazole Sodium 40 mg 12/30/20 05:00 12/30/20 05:22 Pantoprazole 40 Mg Sdv IVP 40 mg Q24H THA Administration PFSH Acute PFSH: Medical History CAD (coronary artery disease) Cardiac ischemia Colon cancer Erectile dysfunction Essential hypertension Gout Lumbar disc disease with radiculopathy Mixed hyperlipidemia Nephrolithiasis Pulmonary hypertension Pure hypercholesterolemia Surgical History H/O carpal tunnel repair H/O esophagogastroduodenoscopy H/O lithotripsy History of cataract surgery History of fusion of cervical spine C4-C7 ACDFF, with C6 corpectomy; 2002; [facility] C3-C4 ACDFF; 01/28/2018; [facility] History of lumbar surgery Left L4-L5, L5-S1 hemilaminotomy/discectomy/foraminotomy; 04/07/2019; [facility]. Right L3-L4 and reexploration left L4-L5 laminotomy/discectomy, 10/03/2019, [facility] [place]. Hx of cardiac catheterization Hx of cholecystectomy S/P bilateral inguinal hernia repair S/P right hemicolectomy Status post colonoscopy Family History Brother Cancer Stomach Father Emphysema lung Lung disease Cancer Mother Hypertension Cancer Diabetes Denies family history of CAD (coronary artery disease) Clotting disorder Dementia Chronic kidney disease (CKD) Suicide Anesthesia complication Bleeding disorder Stroke Social History Smoking and tobacco status: never smoked Second hand smoke exposure: No Alcohol intake: current Alcohol intake frequency: few times a week Lives independently: Yes Household members: spouse Marital status: Current occupational status: retired History of recent travel: No Vitals/I&O/Wt Last Vital Signs Temp 97.8 F 12/30/20 07:00 Pulse 97 12/30/20 12:00 Resp 28 H 12/30/20 12:00 BP 98/54 12/30/20 12:00 Pulse Ox 97 12/30/20 12:00 12/30/20 12/30/20 12/30/20 06:59 14:59 22:59 Intake Total 1210 / 1210 911.667 / 911.667 Output Total 250 / 250 825 / 1025 200 / 1025 Balance 960 / 960 86.667 / -113.333 -200 / -113.333 Weight last 48 hrs Weight 204 lb Physical Exam Narrative: EXAM NARRATIVE: HEENT: Normocephalic Eye: Sclera /conjunctiva normal Abdomen: Soft to palpation minimally tender, nondistended, incision clean dry and intact Neurological: Oriented to place person and time Skin: Intact, no lesions appreciated on gross exam Urinary Catheter Management^: Oreilly: Cath Placed During This Visit: yes Reason for Continuing Indwelling Catheter: Accurate Measurement of Urinary Output in Critically Ill Patients Urinary Catheter Date of Insertion: 12/30/20 Urinary Catheter Time of Insertion: 04:03 Data Micro: Micro: Microbiology 12/30/20 11:25 Stool Lactoferrin - Final Stool Enteric Pathogens (PCR) - Final C.difficile Toxin B Gene (PCR) - Fin al Occult Blood (FIT) - Final A&P Assessment and plan (1) S/P right hemicolectomy: S/p laparoscopic extended right hemicolectomy for hepatic flexure mass Patient is tolerating a clear liquid diet and has been having bowel movements. His lactate was normal. I therefore feel like internal hernia is unlikely since he does not have any evidence of bowel obstruction and most likely has ileus from a combination of ARF and postop status. I will add Metamucil to see if that helps thicken the stools and decrease the diarrhea. Loose stools after right hemicolectomy is a common occurrence due to loss of ileocecal valve and it usually resolves spontaneously but given his dehydration and diarrhea we will try to manage it medically. Patient has not had any further nausea and vomiting since yesterday - Advance to full liquid diet with nutritional supplements supplements Continue Protonix for GI prophylaxis Heparin for DVT prophylaxis Stool cultures pending Acute renal failure: Prerenal from combination of nausea, vomiting, poor oral intake and diarrhea Oreilly to gravity Ultrasound renal: No significant acute pathology Management as per hospitalist service and Dr. Corbett Status: Acute Consult Attestations Medical Necessity Statement: As per attending physician Coding Level of Care Code Acute Wire Puller for Chg Fwd Diagnoses S/P right hemicolectomy Z90.49
[2020-12-30 15:06] LABS: Eosinophil Urine No Eosinophils Seen; Urine Eosinophil Count 0 (0-0)
[2020-12-30 17:01] LABS: Anion Gap 35.4 (5-19); Calcium 6.9 mg/dL (8.5-10.5); Chloride 90 mmol/L (98-107); Glomerular Filtration Rate 3.9 mL/min (90-130); Glucose 113 mg/dL (65-115); Potassium 5.4 mmol/L (3.5-5.1); Sodium 127 mmol/L (136-145)
[2020-12-30 17:06] LABS: Osmolality Calculated 321 mOsm/kg (285-295)
[2020-12-30 17:08] LABS: Carbon Dioxide 7 mmol/L (22-29)
[2020-12-30 17:09] LABS: Blood Urea Nitrogen 169 mg/dL (8-23)
[2020-12-30] MEDS: psyllium powder Pkt 1 PACKET PO (17:36)
--- NOTE | 2020-12-30 19:10 | PC.NURSE ---
Shift summary: Pt rested in bed most of the day . [place] [facility] [place] Liquid brown Bm noted. He had one episode of incontinence of bowel at towards the end of shift. He was weak and slightly unsteady at the first OOB in the morning, his work of breathing increased. He said he was short of breath, his O 2sats 95%. He was stronger in the afternoon but still got a little short of breath during exertion. His BUN and Creatinine have decreased slightly this shift. His urine output was adequate at 650ml. He denies abdominal pain.
[2020-12-30 21:17] LABS: Calcium 6.6 mg/dL (8.5-10.5); Chloride 96 mmol/L (98-107); Glomerular Filtration Rate 4.5 mL/min (90-130); Glucose 125 mg/dL (65-115); Sodium 133 mmol/L (136-145)
--- NOTE | 2020-12-30 21:19 | PC.NURSE ---
Notified Dr. Alvarado that patient has had 2 BM's since I have been here at 7PM. 1st was brown diarrhea. 2nd BM was large and bloody with blood clots. Orders given for labs and type and cross x 2 units PRBC.
[2020-12-30 21:23] LABS: Anion Gap 35.9 (5-19); Potassium 4.9 mmol/L (3.5-5.1)
[2020-12-30 21:27] LABS: Carbon Dioxide 6 mmol/L (22-29)
[2020-12-30 21:36] LABS: Blood Urea Nitrogen 170 mg/dL (8-23); Osmolality Calculated 334 mOsm/kg (285-295)
[2020-12-30 21:48] LABS: Basophils % 0.3 %; Eosinophils # 0.5 10^3/uL (0.0-0.8); Eosinophils % 3.8 %; Hematocrit 32.1 % (42.0-52.0); Hemoglobin 9.2 g/dL (11.7-16.6); Lymphocytes # 0.2 10^3/uL (0.8-4.8); Lymphocytes % 1.9 %; Mean Corpuscular HGB Conc 28.7 g/dL (30.0-36.0); Mean Corpuscular Hemoglobin 21.3 pg (28.0-34.0); Mean Corpuscular Volume 74.3 fL (80-94); Mean Platelet Volume 9.8 fL (7.4-10.4); Monocytes # 0.6 10^3/uL (0.2-0.9); Monocytes % 5.2 %; Neutrophils # 10.44 10^3/uL (1.8-7.7); Neutrophils % 88.2 %; Nucleated Red Blood Cells % 0 %; Platelet Count 370 10^3/cmm (130-400); Red Blood Count 4.32 10^6/uL (4.1-5.3); Red Cell Distribution Width 23.9 % (12.1-15.1); White Blood Count 11.8 10^3/uL (4.0-10.0)
[2020-12-30 22:08] LABS: INR 1.31 (0.8-1.2)
[2020-12-30 22:09] LABS: Partial Thromboplastin Time 31.9 SECONDS (23.9-36.7)
--- NOTE | 2020-12-30 22:11 | PC.NURSE ---
Dr. Alvarado to bedside to assess patient. New order given to discontinue heparin.
[2020-12-30 22:15] LABS: Lactate (Lactic Acid level) 1.1 mmol/L (0.5-2.2)
[2020-12-31] VITALS (30 sets, daily range): BP systolic 87–127; BP diastolic 48–79; PULSE 86–118; RESP 21–28; TEMP 36.6–37.3; O2SAT 90–100
[2020-12-31 00:54] LABS: Basophils % 0.3 %; Eosinophils # 0.5 10^3/uL (0.0-0.8); Eosinophils % 4.3 %; Hematocrit 27.9 % (42.0-52.0); Hemoglobin 8.2 g/dL (11.7-16.6); Lymphocytes # 0.3 10^3/uL (0.8-4.8); Lymphocytes % 2.7 %; Mean Corpuscular HGB Conc 29.4 g/dL (30.0-36.0); Mean Corpuscular Hemoglobin 21.2 pg (28.0-34.0); Mean Corpuscular Volume 72.1 fL (80-94); Mean Platelet Volume 9.9 fL (7.4-10.4); Monocytes # 0.6 10^3/uL (0.2-0.9); Monocytes % 5.3 %; Neutrophils # 9.94 10^3/uL (1.8-7.7); Neutrophils % 86.7 %; Nucleated Red Blood Cells % 0 %; Platelet Count 396 10^3/cmm (130-400); Red Blood Count 3.87 10^6/uL (4.1-5.3); Red Cell Distribution Width 23.5 % (12.1-15.1); White Blood Count 11.5 10^3/uL (4.0-10.0)
[2020-12-31 01:07] LABS: Anion Gap 31.4 (5-19); Calcium 6.5 mg/dL (8.5-10.5); Chloride 100 mmol/L (98-107); Glomerular Filtration Rate 4.4 mL/min (90-130); Glucose 151 mg/dL (65-115); Lactate (Lactic Acid level) 1.2 mmol/L (0.5-2.2); Potassium 4.4 mmol/L (3.5-5.1); Sodium 135 mmol/L (136-145)
[2020-12-31 01:20] LABS: Osmolality Calculated 337 mOsm/kg (285-295)
[2020-12-31 01:21] LABS: Blood Urea Nitrogen 164 mg/dL (8-23); Carbon Dioxide 8 mmol/L (22-29)
[2020-12-31] MEDS: DEXTROSE 5% IV ×3 (03:44→21:32)
[2020-12-31] MEDS: SOD CHLORIDE 0.45% IV ×3 (03:44→21:32)
[2020-12-31] MEDS: SODIUM BICARBONATE IV ×3 (03:44→21:32)
[2020-12-31 04:13] LABS: Alanine Aminotransferase 7 U/L (0-41); Albumin Level 2.8 g/dL (3.5-5.2); Alkaline Phosphatase 64 IU/L (40-130); Aspartate Amino Transferase 10 U/L (0-40); C Reactive Protein 102.7 mg/L (0.0-4.9); Calcium 6.4 mg/dL (8.5-10.5); Chloride 101 mmol/L (98-107); Globulin 3.3 g/dL (1.3-4.6); Glomerular Filtration Rate 4.5 mL/min (90-130); Glucose 168 mg/dL (65-115); Magnesium 1.4 mg/dL (1.7-2.3); NT Pro B Type Natriuretic Pept 7579 pg/mL (0-125); Phosphorus 7.5 mg/dL (2.5-4.5); Sodium 136 mmol/L (136-145); Total Bilirubin 0.5 mg/dL (0.15-1.2); Total Protein 6.1 g/dL (6.6-8.7)
[2020-12-31 04:23] LABS: Blood Urea Nitrogen 161 mg/dL (8-23); Carbon Dioxide 9 mmol/L (22-29); Osmolality Calculated 339 mOsm/kg (285-295)
[2020-12-31] MEDS: pantoprazole 40 mg SDV IVP ×2 (04:57→21:32)
[2020-12-31] MEDS: piperacillin-tazobactam 3.375 GM in sodium chloride 0.9% (plus) 50 ML IV ×2 (05:15→18:57)
[2020-12-31] MEDS: tamsulosin 0.4 mg Capsule PO (10:18)
--- NOTE | 2020-12-31 10:20 | PC.NURSE ---
Metamucil adn aspirin held after large GI bleed. Dr Knox ok'd these meds being held this am.
--- NOTE | 2020-12-31 10:25 | PC.NURSE ---
Pt incontinent of large amount of maroon/red stool with large clots, out to end of bed, dripping in the floor. Pericare and linen change provided. Attempts made to notify Dr Alvarado went to voice mail, left message . Then notified Dr Knox of episode, dr stated he would see the patient in a few minutes.
--- NOTE | 2020-12-31 10:50 | P.PN_ITS ---
Subjective Subjective: Interval history: Large bloody BM this am. Otherwise no other issues overnight. He feels quite well. No uremic Sx. No edema and no other hypervolemic Sx. Vitals/I&O/Wt Last Vital Signs Temp 98.7 F 12/31/20 04:00 Pulse 91 12/31/20 06:00 Resp 23 H 12/31/20 04:00 BP 92/60 12/31/20 04:00 Pulse Ox 96 12/31/20 04:00 12/30/20 12/31/20 12/31/20 22:59 06:59 14:59 Intake Total 1362.5 / 2787.500 1050 / 3837.500 Output Total 625 / 1450 800 / 2250 Balance 737.5 / 1337.500 250 / 1587.500 Weight last 48 hrs Weight 83.96 kg Weight 92.533 kg Physical Exam Narrative: EXAM NARRATIVE: Constitutional: Awake, comfortable HEENT: Wet mucosa, no jvp, non icteric Lungs: Bilaterally clear without discernible wheeze or rales in all lung zones CVS: S1 S2, no murmurs Abdo: Soft, BS ok Ext 4: Minimal edema, peripheral perfusion with no cyanosis Neurological: Grossly non-focal Urinary Catheter Management^: Oreilly: Cath Placed During This Visit: yes Reason for Continuing Indwelling Catheter: Accurate Measurement of Urinary Output in Critically Ill Patients Urinary Catheter Date of Insertion: 12/30/20 Urinary Catheter Time of Insertion: 04:03 Data : 12/31/20 00:38 12/31/20 03:36 Micro: Microbiology 12/30/20 09:35 Urine Culture - Preliminary Urine,Clean Catch 12/29/20 22:37 Urine Culture - Final Urine,Clean Catch 12/30/20 11:25 Stool Lactoferrin - Final Stool Enteric Pathogens (PCR) - Final C.difficile Toxin B Gene (PCR) - Final Occult Blood (FIT) - Final A&P Additional A&P Information 1. Acute renal failure Consistent with severe prerenal azotemia from very poor oral intake in combinati on with volume loss from diarrhea, diuretics, in the setting of decreased glomerular pressure from ANA inhibitor effect. Creatinine slowly improving with a good urine output. Acidosis now improving also Imaging on admission demonstrated no evidence of obstructive kidney disease. Continue IV hydration with D5 half NS with 50 M EQ sodium bicarb at increased rate of 150 mL/h agian today Strict ins and outs Avoid usual nephrotoxic agents Dose medication for GFR less than 15. 2. Chemistry Severe aberration of serum chemistry including high anion gap metabolic acidosis which is now improving Continue IV hydration with D5 half NS with 50 M EQ sodium bicarb at increased rate of 150 mL/h Every 12 BMP. 3. Status post recent hemicolectomy CT scan suggestive of small bowel obstruction, surgery to input. Last bowel movement yesterday, loose diarrhea. Good bowel sounds on examination. Some he matochezia today, mgmt per Dr Alvarado 4. Hemodynamics Currently hemodynamics look robust, continue to monitor hemodynamics closely during hospitalization Thank you for consultation, it is a pleasure to follow these cases with you Exam and interview performed with aid of bedside RN using telemedicine Time spent 20 min inc > 50% of time in face to face counseling Amadeo Corbett MD [facility] Ren[facility] [phone] Attestations Medical Necessity Statement*: Eval for WANDA Coding Level of Care Code Acute Merchandise Appraiser for [facility]
--- NOTE | 2020-12-31 12:37 | PM.PN ---
Subjective Subjective: Interval history: Multiple bowel movements yesterday and today which were loose and couple of them were bloody. Patient has been hemodynamically stable and has mild abdominal pain, no nausea or vomiting. H&H is stable Vitals/I&O/Wt Last Vital Signs Temp 98.7 F 12/31/20 04:00 Pulse 91 12/31/20 06:00 Resp 23 H 12/31/20 04:00 BP 92/60 12/31/20 04:00 Pulse Ox 96 12/31/20 04:00 12/30/20 12/31/20 12/31/20 22:59 06:59 14:59 Intake Total 1362.5 / 2787.500 1050 / 3837.500 Output Total 625 / 1450 800 / 2250 Balance 737.5 / 1337.500 250 / 1587.500 Weight last 48 hrs Weight 83.96 kg Weight 92.533 kg Physical Exam Const: COMMON NORMALS: patient oriented x3 HENMT: COMMON NORMALS: normocephalic, atraumatic, hearing grossly normal bilaterally and external ears normal HEAD & SCALP: normocephalic and atraumatic EXTERNAL EAR: Yes external ears normal Eye: COMMON NORMALS: no scleral icterus GENERAL EYE: appearance normal, both eyes and all related structures Chest: CHEST: Yes Symmetrical chest wall rise Resp: COMMON NORMALS: clear to auscultation bilaterally EFFORT & INSPECTION: Yes symmetric chest movement AUSCULTATION: clear to auscultation bilaterally Cardio: COMMON NORMALS: regular rate, regular rhythm, S1 normal heart sound present, S2 normal heart sound present, No gallops present (Cardio), No murmurs present (Cardio), No rub (Cardio) and Peripheral pulses 2+ throughout RATE: regular rate RHYTHM: regular rhythm HEART SOUNDS: S1 normal heart sound present and S2 normal heart sound present PERIPHERAL PULSES: Peripheral pulses 2+ throughout GI: COMMON NORMALS: Normal to inspection, nondistended, normoactive bowel sounds present, Soft to palpation, non-tender, No hepatosplenomegaly present and no masses AUSCULTATION: Yes normoactive bowel sounds PALPATION: Yes Soft to palpation and Yes No hepatosplenomegaly present RECTAL EXAM: Yes deferred OTHER: Midline incision clean dry and intact Extremity: COMMON NORMALS: no clubbing, cyanosis or edema and no pedal edema Neuro: COMMON NORMALS: patient oriented x3 Urinary Catheter Management^: O[place]illy: Cath Placed During This Visit: yes Reason for Continuing Indwelling Catheter: Accurate Measurement of Urinary Output in Critically Ill Patients Urinary Catheter Date of Insertion: 12/30/20 Urinary Catheter Time of Insertion: 04:03 Data : 12/31/20 12:15 12/31/20 03:36 Micro: Microbiology 12/30/20 09:35 Urine Culture - Preliminary Urine,Clean Catch 12/29/20 22:37 Urine Culture - Final Urine,Clean Catch 12/30/20 11:25 Stool Lactoferrin - Final Stool Enteric Pathogens (PCR) - Final C.difficile Toxin B Gene (PCR) - Final Occult Blood (FIT) - Final A&P Assessment and plan (1) Acute renal failure: Status: Acute Qualifiers: Acute renal failure type: unspecified Qualified Code(s): N17.9 - Acute kidney failure, unspecified (2) Metabolic acidosis: Status: Acute (3) Acute hyperkalemia: Status: Acute (4) S/P right hemicolectomy: Status: Acute (5) CAD (coronary artery disease): Status: Acute (6) Pulmonary hypertension: Status: Acute Acute Renal Failure / Hyperkalemia / Hyponatremia / AG metabolic acidosis -Likely prerenal from poor oral oral hydration, dehydration, diarrhea, polypharmacy, UTI -Oreilly catheter in place - Consult nephrology - S/p calcium gluconate - Repeat BMP every 6 hours -Currently on D5 half-normal saline with 50 mcg of sodium bicarb at 150 cc -CT scan of the abdomen and pelvis no obstructive uropathy, no radiologic evidence of pyelonephritis -UA does show evidence of UTI, follow urine cultures, follow blood cultures -renal ultrasound: -Urine studies -Lactic acid within normal limits: -Stool studies: C. difficile: Negative, enteric pathogen PCR: Negative, enteric parasitic panel: Pending -FOBT: Positive - Monitor u/o, 600 cc of urine output - May potentially require HD depending on urine output, and electrolyte abnormalities Nausea/vomiting possible SBO vs Ileus -CT scan of the abdomen pelvis shows small bowel distention concerning for small bowel obstruction. There is noted to be some swirling of the mesenteric vessels and findings could represent an internal hernia. Continued follow-up is recommend. There is some colonic distention with fluid suggesting ileus. There is also some mild thickening of the wall of the sigmoid colon. -Currently no nausea, vomiting, having liquidy bowel movements: -Tolerating GI soft diet. -Empirically cover with zosyn -General surgery on consult UTI: urine cultures: Grossly contaminated Zosyn Right lung infiltrate, no shortness of breath, afebrile, on Zosyn for now Additional medical Problems Adenocarcinoma s/p recent Hemicolectomy Hypertension hx of Nephrolithiasis Coronary artery disease History of pulmonary hypertension, maintain O2 sats greater than 92%, incentive spirometer, flutter valve CAD -no active chest pain, -Cardiac catheterization 2018 showed normal left main, normal LAD, mildly eccentric plaque in the circumflex, tapering narrowing of about 40% in the RCA with one PDA branch with an ostial narrowing of 30-40%. LVEF of 55% -Echocardiogram on last admission showed an EF of 50 to 55%, normal diastolic function GI ppx - Protonix 40 mg IV daily DVT ppx - Heparin 5000 unit q12 Attestations Medical Necessity Statement*: Patient needs to be in hospital for management of acute renal failure. Coding Level of Care Code Acute Tire Fabric Impregnating Range Tender for [facility] Fwd Diagnoses Acute renal failure N17.9 Acute renal failure type: unspecified Metabolic acidosis E87.2 Acute hyperkalemia E87.5 S/P right hemicolectomy Z90.49 CAD (coronary artery disease) I25.10 Pulmonary hypertension I27.20
[2020-12-31 12:40] LABS: Hematocrit 27.2 % (42.0-52.0)
[2020-12-31 12:47] LABS: Creatinine, Random Urine 100 mg/dL (20-320); Protein, Total, Random 107 mg/dL (5-25); Protein/Creatinine Ratio 1070 mg/g creat (22-128)
--- NOTE | 2020-12-31 13:06 | PM.PN ---
Subjective Subjective: Interval history: Patient had multiple bowel movements yesterday and today which were loose and couple of them were bloody. Patient has been hemodynamically stable and has mild abdominal pain, no nausea or vomiting, tolerating full liquid diet Vitals/I&O/Wt Last Vital Signs Temp 98.7 F 12/31/20 04:00 Pulse 91 12/31/20 06:00 Resp 23 H 12/31/20 04:00 BP 92/60 12/31/20 04:00 Pulse Ox 96 12/31/20 04:00 12/30/20 12/31/20 12/31/20 22:59 06:59 14:59 Intake Total 1362.5 / 3837.500 1050 / 3837.500 1100 / 1100 Output Total 625 / 2250 800 / 2250 Balance 737.5 / 1587.500 250 / 1965.215 2045 / 1100 Weight last 48 hrs Weight 185 lb 1.6 oz Weight 204 lb Physical Exam Narrative: EXAM NARRATIVE: Abdomen: Soft, nontender, nondistended, incision clean dry and intact Urinary Catheter Management^: O[place]: Cath Placed During This Visit: yes Reason for Continuing Indwelling Catheter: Accurate Measurement of Urinary Output in Critically Ill Patients Urinary Catheter Date of Insertion: 12/30/20 Urinary Catheter Time of Insertion: 04:03 Data : 12/31/20 12:15 12/31/20 03:36 Micro: Microbiology 12/30/20 09:35 Urine Culture - Preliminary Urine,Clean Catch 12/29/20 22:37 Urine Culture - Final Urine,Clean Catch 12/30/20 11:25 Stool Lactoferrin - Final Stool Enteric Pathogens (PCR) - Final C.difficile Toxin B Gene (PCR) - Final Occult Blood (FIT) - Final A&P Assessment and plan (1) S/P right hemicolectomy: S/p laparoscopic extended right hemicolectomy for hepatic flexure mass Acute renal failure prerenal azotemia from nausea vomiting and diarrhea Patient has not had any further nausea and vomiting since yesterday - Advance to GI soft diet with nutritional supplements Continue Protonix for GI prophylaxis Hold heparin and aspirin Stool cultures: Negative patient is currently being covered with Zosyn for potential colitis. WBC 11.5 Patient could also have uremic blood dyscrasias which could be contributing to the blood loss Serial hemoglobin checks, last hemoglobin was 8 Diarrhea: started metamucil which has now been withheld after bleeding, will try cholestryamine Acute renal failure: Prerenal from combination of nausea, vomiting, poor oral intake and diarrhea Oreilly to gravity Ultrasound renal: No significant acute pathology Management as per hospitalist service and Dr. Corbett Status: Acute Attestations Medical Necessity Statement*: As per primary Coding Level of Care Code Acute Medical Superintendent for [facility] Fwd Diagnoses S/P right hemicolectomy Z90.49
--- NOTE | 2020-12-31 13:49 | PC.NUTR ---
Addendum entered by Jose Huerta 12/31/20 13:51: See RD assessment for further details Original Note: Nutrition assessment completed due to MST score of 3 for decreased appetite and weight loss. Attempted to interview pt but pt did not wake up to sound of voice X 2. Recommend to continue with GI soft diet as tolerated, encourage meal intakes and provide preferences as appropriate. If renal function continues to be impaired, recommend consider renal non-dialysis diet. Noted Nepro no longer ordered on new diet order, however nurse reports pt is not drinking them.
[2020-12-31 18:57] LABS: Hematocrit 23.8 % (42.0-52.0); Hemoglobin 7.5 g/dL (11.7-16.6)
[2020-12-31] MEDS: cholestyramine powder 4 gm Pkt PO (18:57)
[2020-12-31] MEDS: psyllium powder Pkt 1 PACKET PO (18:58)
[2020-12-31 19:16] LABS: Anion Gap 28.3 (5-19); Calcium 6.1 mg/dL (8.5-10.5); Carbon Dioxide 11 mmol/L (22-29); Chloride 95 mmol/L (98-107); Glomerular Filtration Rate 6.8 mL/min (90-130); Glucose 172 mg/dL (65-115); Potassium 3.3 mmol/L (3.5-5.1); Sodium 131 mmol/L (136-145)
[2020-12-31 19:24] LABS: Blood Urea Nitrogen 139 mg/dL (8-23); Osmolality Calculated 321 mOsm/kg (285-295)
[2020-12-31] MEDS: sodium chloride 0.9% 100 mL Bag IV ×2 (19:30→23:47)
--- NOTE | 2020-12-31 19:30 | PC.NURSE ---
Report given to ROSA Negron.
--- NOTE | 2020-12-31 19:44 | PC.NURSE ---
Shift summary: Pt alert and oriented. Pt has remained pleasant throughout the shift. He said his abdomen did not hurt at beginning of shift. He held his right side and said it pinched some during the last bout of bloody diarrhea. . It is soft with active bowel sounds. He has had 4 copious maroon, blood clot filled BM in addition to the 4 brown diarrhea that was slightly bloody tinged. today. He has been incontinent each episode. His BUN and creatinine have improved steadily. His Hgb and Hct has dropped throughout shift. Pt had type and screen for blood completed last night, he now has orders to transfuse 2 units. His urine output has improved, 1250ml clear and and yellow.
--- NOTE | 2020-12-31 22:50 | PM.EVENT ---
Event Note Event Note: Called with patient having multiple bloody bowel movements since shift change. Hgb at ~630pm was 7.5. 2 units blood ordered. 1st unit infusing. Patient feels fine, no abdominal pain. Tells me he has had some blood in stools for a couple of weeks off and on. Volume of bloody stools earlier today was significant per charge nurse. Dr Alvarado was made aware. he had received heparin x 2 doses on 12/30/20. Last dose was 1757 12/30. Was on outpatient aspirin, none received here thus far, was ordered but held. I removed it from orders. 3 large volume bloody stools reported since shift change. Currently HR 90s, BP 100/57. Nurse to notify me on ongoing bloody stools or change in vital signs. Will recheck hgb 1 hour after current transfusion is complete and order additional transfusion as needed.
[2021-01-01] VITALS (39 sets, daily range): BP systolic 96–151; BP diastolic 53–73; PULSE 75–111; RESP 15–34; TEMP 36.4–37.2; O2SAT 91–100
[2021-01-01 03:13] LABS: Basophils % 0.3 %; Eosinophils # 0.4 10^3/uL (0.0-0.8); Eosinophils % 3.5 %; Hematocrit 28.1 % (42.0-52.0); Hemoglobin 8.5 g/dL (11.7-16.6); Lymphocytes # 0.8 10^3/uL (0.8-4.8); Lymphocytes % 6.6 %; Mean Corpuscular HGB Conc 30.2 g/dL (30.0-36.0); Mean Corpuscular Hemoglobin 22.7 pg (28.0-34.0); Mean Corpuscular Volume 75.1 fL (80-94); Mean Platelet Volume 9.8 fL (7.4-10.4); Monocytes # 0.8 10^3/uL (0.2-0.9); Monocytes % 6.9 %; Neutrophils # 9.46 10^3/uL (1.8-7.7); Neutrophils % 81.9 %; Nucleated Red Blood Cells % 0 %; Platelet Count 241 10^3/cmm (130-400); Red Blood Count 3.74 10^6/uL (4.1-5.3); White Blood Count 11.6 10^3/uL (4.0-10.0)
[2021-01-01] MEDS: SODIUM BICARBONATE IV ×3 (03:31→21:36)
[2021-01-01] MEDS: SOD CHLORIDE 0.45% IV ×3 (03:31→21:36)
[2021-01-01] MEDS: DEXTROSE 5% IV ×3 (03:31→21:36)
[2021-01-01] MEDS: piperacillin-tazobactam 3.375 GM in sodium chloride 0.9% (plus) 50 ML IV ×2 (05:54→17:12)
[2021-01-01 06:35] LABS: Hematocrit 27.3 % (42.0-52.0); Hemoglobin 8.4 g/dL (11.7-16.6)
[2021-01-01 06:55] LABS: Alanine Aminotransferase 7 U/L (0-41); Albumin Level 2.7 g/dL (3.5-5.2); Alkaline Phosphatase 56 IU/L (40-130); Anion Gap 23.2 (5-19); Aspartate Amino Transferase 11 U/L (0-40); Calcium 6.1 mg/dL (8.5-10.5); Carbon Dioxide 14 mmol/L (22-29); Chloride 101 mmol/L (98-107); Globulin 2.7 g/dL (1.3-4.6); Glomerular Filtration Rate 8.9 mL/min (90-130); Glucose 165 mg/dL (65-115); Phosphorus 5.7 mg/dL (2.5-4.5); Potassium 3.2 mmol/L (3.5-5.1); Sodium 135 mmol/L (136-145); Total Bilirubin 0.5 mg/dL (0.15-1.2); Total Protein 5.4 g/dL (6.6-8.7)
[2021-01-01 06:56] LABS: Lactate (Lactic Acid level) 0.8 mmol/L (0.5-2.2)
[2021-01-01 07:11] LABS: NT Pro B Type Natriuretic Pept 6026 pg/mL (0-125)
[2021-01-01 07:24] LABS: Blood Urea Nitrogen 127 mg/dL (8-23); Osmolality Calculated 325 mOsm/kg (285-295)
[2021-01-01] MEDS: pantoprazole 40 mg SDV IVP ×2 (07:48→20:45)
--- NOTE | 2021-01-01 07:58 | PC.SOCIAL ---
IMM Updated Updated pt on Pg 2 IMM. No questions voiced. Provided pt a copy. Signed, dated, & timed copy in chart.
[2021-01-01 09:49] LABS: Hematocrit 27.8 % (42.0-52.0); Hemoglobin 8.4 g/dL (11.7-16.6)
[2021-01-01] MEDS: tamsulosin 0.4 mg Capsule PO (10:05)
[2021-01-01] MEDS: psyllium powder Pkt 1 PACKET PO ×2 (10:05→17:12)
[2021-01-01 10:06] LABS: Anion Gap 24.3 (5-19); Calcium 6.2 mg/dL (8.5-10.5); Carbon Dioxide 14 mmol/L (22-29); Chloride 101 mmol/L (98-107); Glomerular Filtration Rate 9.6 mL/min (90-130); Glucose 179 mg/dL (65-115); Potassium 3.3 mmol/L (3.5-5.1); Sodium 136 mmol/L (136-145)
[2021-01-01] MEDS: cholestyramine powder 4 gm Pkt PO ×2 (10:06→17:12)
[2021-01-01 10:14] LABS: Blood Urea Nitrogen 116 mg/dL (8-23); Osmolality Calculated 323 mOsm/kg (285-295)
--- NOTE | 2021-01-01 11:33 | P.PN_ITS ---
Subjective Subjective: Interval history: Patient was seen and examined this morning .Had bloody bowel movements last night and a small well-formed bloody bowel movement this morning. Minimal abdominal pain , denies nausea or vomiting. S/p 2 units PRBC H&H has remained stable. He was started on cholestyramine last night and received 2 units PRBC Vitals/I&O/Wt Last Vital Signs Temp 97.5 F L 01/01/21 08:00 Pulse 99 01/01/21 10:00 Resp 23 H 01/01/21 10:00 BP 115/72 01/01/21 09:00 Pulse Ox 98 01/01/21 10:00 12/31/20 01/01/21 01/01/21 22:59 06:59 14:59 Intake Total 2450 / 5200 1647.5 / 6847.5 1700 / 1700 Output Total 3371 / 3371 650 / 4021 Balance -921 / 1829 997.5 / 2826.5 1700 / 1700 Weight last 48 hrs Weight 83.007 kg Weight 83.96 kg Physical Exam Const: COMMON NORMALS: patient oriented x3 HENMT: COMMON NORMALS: normocephalic, atraumatic, hearing grossly normal bilaterally and external ears normal HEAD & SCALP: normocephalic and atraumatic EXTERNAL EAR: Yes external ears normal Eye: COMMON NORMALS: no scleral icterus GENERAL EYE: appearance normal, both eyes and all related structures Chest: CHEST: Yes Symmetrical chest wall rise Resp: COMMON NORMALS: clear to auscultation bilaterally EFFORT & INSPECTION: Yes symmetric chest movement AUSCULTATION: clear to auscultation bilaterally Cardio: COMMON NORMALS: regular rate, regular rhythm, S1 normal heart sound present, S2 normal heart sound present, No gallops present (Cardio), No murmurs present (Cardio), No rub (Cardio) and Peripheral pulses 2+ throughout RATE: regular rate RHYTHM: regular rhythm HEART SOUNDS: S1 normal heart sound present and S2 normal heart sound present PERIPHERAL PULSES: Peripheral pulses 2+ throughout GI: COMMON NORMALS: Normal to inspection, nondistended, normoactive bowel sounds present, Soft to palpation, non-tender, No hepatosplenomegaly present and no masses AUSCULTATION: Yes normoactive bowel sounds PALPATION: Yes Soft to palpation and Yes No hepatosplenomegaly present RECTAL EXAM: Yes deferred OTHER: Midline incision clean dry and intact Extremity: COMMON NORMALS: no clubbing, cyanosis or edema and no pedal edema Neuro: COMMON NORMALS: patient oriented x3 Urinary Catheter Management^: O[place]illy: Cath Placed During This Visit: yes Reason for Continuing Indwelling Catheter: Accurate Measurement of Urinary Output in Critically Ill Patients Urinary Catheter Date of Insertion: 12/30/20 Urinary Catheter Time of Insertion: 04:03 Data : 01/01/21 09:42 01/01/21 09:42 Micro: Microbiology 12/30/20 11:25 Stool Lactoferrin - Final Stool Enteric Pathogens (PCR) - Final Parasite Antigen Panel - Final C.difficile Toxin B Gene (PCR) - Final Occult Blood (FIT) - Final 12/30/20 09:35 Urine Culture - Final Urine,Clean Catch 12/29/20 22:37 Urine Culture - Final Urine,Clean Catch A&P Assessment and plan (1) Acute renal failure: Status: Acute Qualifiers: Acute renal failure type: unspecified Qualified Code(s): N17.9 - Acute kidney failure, unspecified (2) Metabolic acidosis: Status: Acute (3) Acute hyperkalemia: Status: Acute (4) S/P right hemicolectomy: Status: Acute (5) CAD (coronary artery disease): Status: Acute (6) Pulmonary hypertension: Status: Acute (7) GI bleed: Status: Acute Acute Renal Failure / Hyperkalemia / Hyponatremia / AG metabolic acidosis -Likely prerenal from poor oral oral hydration, dehydration, diarrhea, polypharmacy, UTI -Oreilly catheter in place - Consult nephrology - S/p calcium gluconate - Repeat BMP every 6 hours -Currently on D5 half-normal saline with 50 mcg of sodium bicarb at 150 cc -CT scan of the abdomen and pelvis no obstructive uropathy, no radiologic evidence of pyelonephritis -UA does show evidence of UTI, follow urine cultures, follow blood cultures -renal ultrasound:no evidence of obstructive kidney disease. -Urine studies -Lactic acid within normal limits: -Stool studies: C. difficile: Negative, enteric pathogen PCR: Negative, enteric parasitic panel: Negative -FOBT: Positive - Monitor u/o - May potentially require HD depending on urine output, and electrolyte abnormalities GI bleed: Likely lower GI bleed: S/p 2 units PRBC transfusion: S/p desmopressin 30 mcg x1 dose for possible uremic platelet dysfunction associated bleeding. Monitor CBC. Possible colonoscopy Nausea/vomiting possible SBO vs Ileus -CT scan of the abdomen pelvis shows small bowel distention concerning for small bowel obstruction. There is noted to be some swirling of the mesenteric vessels and findings could represent an internal hernia. Continued follow-up is recommend. There is some colonic distention with fluid suggesting ileus. There is also some mild thickening of the wall of the sigmoid colon. -Currently no nausea, vomiting, having liquidy bowel movements: -Tolerating GI soft diet. -Empirically cover with zosyn -General surgery on consult UTI: urine cultures: Grossly contaminated Zosyn Right lung infiltrate, no shortness of breath, afebrile, on Zosyn for now Additional medical Problems Adenocarcinoma s/p recent Hemicolectomy Hypertension hx of Nephrolithiasis Coronary artery disease History of pulmonary hypertension, maintain O2 sats greater than 92%, incentive spirometer, flutter valve CAD -no active chest pain, -Cardiac catheterization 2017 showed normal left main, normal LAD, mildly eccentric plaque in the circumflex, tapering narrowing of about 40% in the RCA with one PDA branch with an ostial narrowing of 30-40%. LVEF of 55% -Echocardiogram on last admission showed an EF of 50 to 55%, normal diastolic function GI ppx - Protonix 40 mg IV daily DVT ppx - Heparin 5000 unit q12 Attestations Medical Necessity Statement*: Patient is to be in hospital for management of acute renal failure, GI bleed Coding Level of Care Code Acute Data Analyst Report Writer for [facility] Fw Diagnoses Acute renal failure N17.9 Acute renal failure type: unspecified Metabolic acidosis E87.2 Acute hyperkalemia E87.5 S/P right hemicolectomy Z90.49 CAD (coronary artery disease) I25.10 Pulmonary hypertension I27.20 GI bleed K92.2
--- NOTE | 2021-01-01 11:45 | PC.NURSE ---
Midline in ready for use.
--- NOTE | 2021-01-01 13:04 | P.PN_ITS ---
Subjective Subjective: Interval history: Some bloody bowel movements yesterday, however today they appear to be clearing up. Hemoglobin levels remained stable. He received some blood transfusion yesterday. Remains on IV fluid, tolerating this well with no symptoms of hypervolemia. Urine output noted, remains robust., Making 2250 mL yesterday. No uremic symptoms. No abdominal pain. Vitals/I&O/Wt Last Vital Signs Temp 97.5 F L 01/01/21 08:00 Pulse 99 01/01/21 10:00 Resp 23 H 01/01/21 10:00 BP 115/72 01/01/21 09:00 Pulse Ox 98 01/01/21 10:00 12/31/20 01/01/21 01/01/21 22:59 06:59 14:59 Intake Total 2450 / 5200 1647.5 / 6847.5 1700 / 1700 Output Total 3371 / 3371 650 / 4021 Balance -921 / 1829 997.5 / 2826.5 1700 / 1700 Weight last 48 hrs Weight 83.007 kg Weight 83.96 kg Physical Exam Narrative: EXAM NARRATIVE: Constitutional: Awake, comfortable HEENT: Wet mucosa, no jvp, non icteric Lungs: Bilaterally clear without discernible wheeze or rales in all lung zones CVS: S1 S2, no murmurs Abdo: Soft, BS ok Ext 4: Minimal edema, peripheral perfusion with no cyanosis Neurological: Grossly non-focal Urinary Catheter Management^: O[place]illy: Cath Placed During This Visit: yes Reason for Continuing Indwelling Catheter: Accurate Measurement of Urinary Output in Critically Ill Patients Urinary Catheter Date of Insertion: 12/30/20 Urinary Catheter Time of Insertion: 04:03 Data : 01/01/21 09:42 01/01/21 09:42 Micro: Microbiology 12/30/20 11:25 Stool Lactoferrin - Final Stool Enteric Pathogens (PCR) - Final Parasite Antigen Panel - Final C.difficile Toxin B Gene (PCR) - Final Occult Blood (FIT) - Final 12/30/20 09:35 Urine Culture - Final Urine,Clean Catch 12/29/20 22:37 Urine Culture - Final Urine,Clean Catch A&P Additional A&P Information 1. Acute renal failure Improving and so this rec is unchanged, will continue this mgmt with unchanged ivf at the same rate Consistent with severe prerenal azotemia from very poor oral intake in combination with volume loss from diarrhea, diuretics, in the setting of decreased glomerular pressure from ANA inhibitor effect. Creatinine slowly improving with a good urine output. Acidosis now improving also Imaging on admission demonstrated no evidence of obstructive kidney disease. Continue IV hydration with D5 half NS with 50 M EQ sodium bicarb at increased rate of 150 mL/h again today Strict ins and outs Avoid usual nephrotoxic agents Dose medication for GFR less than 15. 2. Chemistry Severe aberration of serum chemistry including high anion gap metabolic acidosis which is now improving Continue IV hydration with D5 half NS with 50 M EQ sodium bicarb at increased rate of 150 mL/h Daily renal panel now ok 3. Status post recent hemicolectomy CT scan suggestive of small bowel obstruction, surgery to input. Last bowel movement yesterday, loose diarrhea. Good bowel sounds on examination. Some hematochezia and I will add DDAVP x 1, mgmt per Dr Alvarado; may need endoscopic evalaution 4. Hemodynamics Currently hemodynamics look robust, continue to monitor hemodynamics closely during hospitalization Thank you for consultation, it is a pleasure to follow these cases with you Exam and interview performed with aid of bedside RN using telemedicine Time spent 20 min inc > 50% of time in face to face counseling Amadeo Corbett MD [facility] Renal Care [phone] Attestations Medical Necessity Statement*: renal failure Coding Level of Care Code Acute Adolescent Medicine Specialist for 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
--- NOTE | 2021-01-01 13:36 | P.PN_ITS ---
Subjective Subjective: Interval history: Patient denies significant abdominal pain, had bloody bowel movements last night but did not have any overnight. This morning he had couple of bowel movements which were small and had small amount of clots. No nausea or vomiting. He was started on cholestyramine last night and received 2 units PRBC Vitals/I&O/Wt Last Vital Signs Temp 97.5 F L 01/01/21 08:00 Pulse 111 H 01/01/21 13:00 Resp 22 H 01/01/21 13:00 BP 117/68 01/01/21 11:00 Pulse Ox 91 01/01/21 11:00 12/31/20 01/01/21 01/01/21 22:59 06:59 14:59 Intake Total 2450 / 6847.5 1647.5 / 6847.5 1939 Output Total 3371 / 4021 650 / 4021 Balance -921 / 2826.5 997.5 / 2826.5 1939 Weight last 48 hrs Weight 183 lb Weight 185 lb 1.6 oz Physical Exam Narrative: EXAM NARRATIVE: Abdomen: Soft, minimally tender, nondistended, incision clean dry and intact, Oreilly to gravity Urinary Catheter Management^: Oreilly: Cath Placed During This Visit: yes Reason for Continuing Indwelling Catheter: Accurate Measurement of Urinary Ou tput in Critically Ill Patients Urinary Catheter Date of Insertion: 12/30/20 Urinary Catheter Time of Insertion: 04:03 Data : 01/01/21 09:42 01/01/21 09:42 Micro: Microbiology 12/30/20 11:25 Stool Lactoferrin - Final Stool Enteric Pathogens (PCR) - Final Parasite Antigen Panel - Final C.difficile Toxin B Gene (PCR) - Final Occult Blood (FIT) - Final 12/30/20 09:35 Urine Culture - Final Urine,Clean Catch A&P Assessment and plan (1) S/P right hemicolectomy: S/p laparoscopic extended right hemicolectomy for hepatic flexure mass Acute renal failure prerenal azotemia from nausea vomiting and diarrhea Patient has not had any further nausea and vomiting since yesterday - Advance to GI soft diet with nutritional supplements Continue Protonix for GI prophylaxis Hold heparin and aspirin Stool cultures: Negative patient is currently being covered with Zosyn for potential colitis. WBC 11.5 Patient could also have uremic blood dyscrasias which could be contributing to the blood loss, patient to receive desmopressin today Serial hemoglobin checks, last hemoglobin was 8.4, received 2 units PRBC yesterday, bleeding has slowed down significantly Diarrhea: Started cholestyramine and his diarrhea appears to have improved, continue GI soft diet Acute renal failure: Prerenal from combination of nausea, vomiting, poor oral intake and diarrhea Oreilly to gravity Ultrasound renal: No significant acute pathology Management as per hospitalist service and Dr. Corbett Status: Acute Attestations Medical Necessity Statement*: As per primary Coding Level of Care Code Acute Administrative Medical Director for [facility] Fwd Diagnoses S/P right hemicolectomy Z90.49
--- NOTE | 2021-01-01 16:14 | PC.NURSE ---
jose carlos brian
[2021-01-01 16:26] LABS: Osmolality Urine 372 mOsm/kg (50-1200)
[2021-01-01 18:09] LABS: Hematocrit 23.1 % (42.0-52.0); Hemoglobin 7.2 g/dL (11.7-16.6)
--- NOTE | 2021-01-01 19:06 | CTR_ITS ---
PROCEDURE INFORMATION: Exam: CT Abdomen And Pelvis Without Contrast Exam date and time: 01/01/2021 9:02 PM Age: 70 years old Clinical indication: Prior surgery; Surgery type: Gb. Hemicolectomy. ; Patient HX: Decreaded hemoglobin. Gi bleed. ; Additional info: G. I bleed TECHNIQUE: Imaging protocol: Computed tomography of the abdomen and pelvis without contrast. Radiation optimization: All CT scans at this facility use at least one of these dose optimization techniques: automated exposure control; mA and/or kV adjustment per patient size (includes targeted exams where dose is matched to clinical indication); or iterative reconstruction. COMPARISON: CT abdomen pelvis wo con [id number] 12/29/2020 9:29 PM RADIATION DOSE METRICS: Total DLP (mGy-cm): 1843.66 FINDINGS: Lungs: Persisting infiltrates in the right lung base. Liver: There is a sub cm presumptive cyst in the right hepatic lobe. Gallbladder and bile ducts: The gallbladder is surgically absent. Pancreas: Normal. No ductal dilation. Spleen: Normal. No splenomegaly. Adrenal glands: Normal. No mass. Kidneys and ureters: Bilateral nonobstructing intrarenal calculi are unchanged measuring up to 6 mm. Stomach and bowel: Since the recent prior study gaseous and fluid distention of the small bowel is slightly decreased. The pattern is most suggestive of an ileus. The right colon is surgically absent. The anastomosis appears patent. There is persisting gas and fluid in the colon extending to the rectum. No transition zone or wall thickening. No obvious hemorrhage. Appendix: No evidence of appendicitis. Intraperitoneal space: Previously seen small intraperitoneal air has further decreased. Vasculature: Unremarkable. No abdominal aortic aneurysm. Lymph nodes: Unremarkable. No enlarged lymph nodes. Urinary bladder: The urinary bladder is decompressed by catheter. Reproductive: Unremarkable as visualized. Bones/joints: Unremarkable. No acute fracture. Soft tissues: Unremarkable. Other findings: No abscess. CT/CT abdomen pelvis wo con [id number] IMPRESSION: 1. Similar to slightly decreased small bowel dilatation. Favor a resolving ileus over other causes. 2. Right hemicolectomy. No evidence of perforation or abscess. There is continued moderate fluid and gas throughout the colon in a pattern most consistent with ileus. 3. Bilateral nonobstructing intrarenal calculi. 4. Persisting right lower lobe infiltrate 5. Other chronic and incidental findings as described. Radiation Dose CTDIVOL = (mGy): DLP = 1843.66 (mGy-cm)
[2021-01-01 19:25] LABS: Anion Gap 22.1 (5-19); Calcium 6.1 mg/dL (8.5-10.5); Carbon Dioxide 14 mmol/L (22-29); Chloride 101 mmol/L (98-107); Glomerular Filtration Rate 10.4 mL/min (90-130); Glucose 168 mg/dL (65-115); Osmolality Calculated 316 mOsm/kg (285-295); Potassium 3.1 mmol/L (3.5-5.1); Sodium 134 mmol/L (136-145)
--- NOTE | 2021-01-01 19:44 | PC.NURSE ---
PRBC Transfusion Started Started the infusion of PRBCs at 192. Vitals docked under the TAR tab. Transfusion is infusing at 50 mls/hr in the right midline IV site.
[2021-01-01 19:45] LABS: Blood Urea Nitrogen 107 mg/dL (8-23)
--- NOTE | 2021-01-01 20:20 | PC.NURSE ---
Increased PRBC Infusion Rate Increased PRBC infusion rate to 100 mls/hr from the previous rate of 50 mls/hr.
[2021-01-01] MEDS: sodium chloride 0.9% 100 mL Bag IV (22:53)
[2021-01-01] MEDS: sodium chloride 0.9% (100 ml) 100 ML (23:17)
[2021-01-02] VITALS (26 sets, daily range): BP systolic 92–143; BP diastolic 45–87; PULSE 68–100; RESP 17–32; TEMP 36.7–37.1; O2SAT 94–100; BMI 26.4
[2021-01-02] MEDS: SOD CHLORIDE 0.45% IV (05:53)
[2021-01-02] MEDS: piperacillin-tazobactam 3.375 GM in sodium chloride 0.9% (plus) 50 ML IV ×2 (05:53→17:04)
[2021-01-02] MEDS: SODIUM BICARBONATE IV (05:53)
[2021-01-02] MEDS: DEXTROSE 5% IV (05:53)
--- NOTE | 2021-01-02 06:37 | PC.NURSE ---
Shift Summary Patient received 2 units of PRBCs and 1 unit of FFP this evening for a hemoglobin of 7.5. He is on room air and is alert and oriented x4. He has had 4 brown liquid bowel movements this evening and had 1200 mls out of clear dark yellow urine from the samaniego catheter. Sodium bicarb is infusing in the right AC IV site at 150mls/hr and Zosyn is infusing the right midline IV site at 12.5 mls/hr. Patient had no complaints of pain all evening.
[2021-01-02 06:38] LABS: Basophils % 0.2 %; Eosinophils # 0.8 10^3/uL (0.0-0.8); Eosinophils % 6.7 %; Hematocrit 25.3 % (42.0-52.0); Hemoglobin 8.3 g/dL (11.7-16.6); Lymphocytes # 1.2 10^3/uL (0.8-4.8); Lymphocytes % 10.5 %; Mean Corpuscular HGB Conc 32.8 g/dL (30.0-36.0); Mean Corpuscular Hemoglobin 24.3 pg (28.0-34.0); Mean Platelet Volume 10.3 fL (7.4-10.4); Monocytes # 0.9 10^3/uL (0.2-0.9); Monocytes % 7.8 %; Neutrophils # 8.26 10^3/uL (1.8-7.7); Neutrophils % 74.1 %; Nucleated Red Blood Cells % 0 %; Platelet Count 205 10^3/cmm (130-400); Red Blood Count 3.42 10^6/uL (4.1-5.3); Red Cell Distribution Width 19.9 % (12.1-15.1); White Blood Count 11.2 10^3/uL (4.0-10.0)
[2021-01-02 06:55] LABS: Alanine Aminotransferase 9 U/L (0-41); Albumin Level 2.6 g/dL (3.5-5.2); Alkaline Phosphatase 53 IU/L (40-130); Aspartate Amino Transferase 14 U/L (0-40); C Reactive Protein 43.9 mg/L (0.0-4.9); Calcium 6.1 mg/dL (8.5-10.5); Carbon Dioxide 20 mmol/L (22-29); Chloride 106 mmol/L (98-107); Globulin 2.9 g/dL (1.3-4.6); Glomerular Filtration Rate 14.6 mL/min (90-130); Glucose 126 mg/dL (65-115); Osmolality Calculated 316 mOsm/kg (285-295); Phosphorus 3.3 mg/dL (2.5-4.5); Sodium 139 mmol/L (136-145); Total Bilirubin 0.5 mg/dL (0.15-1.2); Total Protein 5.5 g/dL (6.6-8.7)
[2021-01-02 06:59] LABS: Blood Urea Nitrogen 87 mg/dL (8-23)
[2021-01-02 07:16] LABS: NT Pro B Type Natriuretic Pept 5115 pg/mL (0-125)
[2021-01-02] MEDS: cholestyramine powder 4 gm Pkt PO ×3 (07:38→17:04)
[2021-01-02] MEDS: pantoprazole 40 mg SDV IVP ×2 (07:38→20:05)
[2021-01-02] MEDS: psyllium powder Pkt 1 PACKET PO ×2 (09:26→17:04)
[2021-01-02] MEDS: tamsulosin 0.4 mg Capsule PO (09:27)
[2021-01-02] MEDS: lactated ringers 1,000 ML 75 ML IV (09:50)
[2021-01-02] MEDS: potassium chloride ER 20 mEq Tablet 40 MEQ PO (09:50)
--- NOTE | 2021-01-02 09:55 | PC.CHAP ---
Pastoral Care Encounter/Spiritual Assessment Type of Contact [] Declined crane hoist or lift operator visit [] Patient/Family/Request visit [] Outpatient visit [] Follow-up visit [] Physician referral [] Code/Alert [x] Routine visit [] Staff referral [] Actively dying [] Patient sleeping [] Family support [] [] Out of room [] Palliative care [] [x] Receiving care in room [] Pre-surgical visit [] Trauma [] Long length of stay [x] ICU visit [x] Other: ventilator Relational/Emotional Strength [] Patient feels connected with others/family/visitors/staff [] Distress [] Loneliness/isolation [] Abandonment Spirituality of Patient [] Person of Jessica [] Attends Orthodoxy of their Jessica [] Believes in Prayer [] Reads Bible or Jewish materials [] There are Spiritual issues to be addressed Helpdesk Technician Interventions [] Prayer [] Active listening [] Non-anxious presence [] Spiritual/emotional support [] Crisis/trauma care [] Spiritual counseling [] Bereavement support [] Provided bereavement packet [] Provided Bible/devotional materials [] Provided toy/stuffed animal, coloring book to patient or family member [] Provided Communion [] Anointing/[place] [] Salvation [] Completed spiritual assessment [] Other: Impact on Illness or Injury [] Angry [] Fearful [] Anxious [] Often cries [] Exhaustion [] Unable to work [] Unable to attend islam [] Unable to walk/stand [] Unable to read [] Unable to drive [] Unable to eat/drink [] Unable to sleep [] Unable to be with family [] Patient intubated [] Other: Summary Time spent with patient Pastoral Care Encounter/Spiritual Assessment Type of Contact [] Declined crane hoist or lift operator visit [] Patient/Family/Request visit [] Outpatient visit [] Follow-up visit [] Physician referral [] Code/Alert [] Routine visit [] Staff referral [] Actively dying [] Patient sleeping [] Family support [] [] Out of room [] Palliative care [] [] Receiving care in room [] Pre-surgical visit [] Trauma [] Long length of stay [] ICU visit [] Other: Relational/Emotional Strength [] Patient feels connected with others/family/visitors/staff [] Distress [] Loneliness/isolation [] Abandonment Spirituality of Patient [] Person of Jessica [] Attends Orthodoxy of their Jessica [] Believes in Prayer [] Reads Bible or Jewish materials [] There are Spiritual issues to be addressed Helpdesk Technician Interventions [x] Prayer [] Active listening [] Non-anxious presence [] Spiritual/emotional support [] Crisis/trauma care [] Spiritual counseling [] Bereavement support [] Provided bereavement packet [] Provided Bible/devotional materials [] Provided toy/stuffed animal, coloring book to patient or family member [] Provided Communion [] Anointing/[place] [] Salvation [x] Completed spiritual assessment [] Other: Impact on Illness or Injury [] Angry [] Fearful [] Anxious [] Often cries [] Exhaustion [] Unable to work [] Unable to attend islam [] Unable to walk/stand [] Unable to read [] Unable to drive [] Unable to eat/drink [] Unable to sleep [] Unable to be with family [] Patient intubated [] Other: Summary Time spent with patient
[2021-01-02 10:07] LABS: Anion Gap 17.8 (5-19); Blood Urea Nitrogen 80 mg/dL (8-23); Calcium 6.3 mg/dL (8.5-10.5); Carbon Dioxide 20 mmol/L (22-29); Chloride 103 mmol/L (98-107); Glomerular Filtration Rate 15.9 mL/min (90-130); Glucose 190 mg/dL (65-115); Osmolality Calculated 315 mOsm/kg (285-295); Sodium 138 mmol/L (136-145)
[2021-01-02 10:17] LABS: Potassium 2.8 mmol/L (3.5-5.1)
--- NOTE | 2021-01-02 12:00 | PC.NURSE ---
Pt experienced two incontinent bowel movements this AM. Asked pt if he felt the urge to defecate. Pt states he feels the urge but is unsure if it is stool or flatulence. Encouraged pt to request bedside commode and explained the probability of skin irritation and prevention. Pt stated he would try. Inquired who pt lives with. 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 Pt knows he is unable to continue to provide care for them both at this time. States children are attempting to arrange home assistance. Traci, Case Management, notified.
--- NOTE | 2021-01-02 12:27 | PM.PN ---
Subjective Subjective: Interval history: Patient was seen and examined this morning,needed 2 Us PRBC as well as 1 FFP transfusion yesterday evening as repeat H/H has dropped to 7.2/23.No bloody BM since last night. Vitals/I&O/Wt Last Vital Signs Temp 98.3 F 01/02/21 07:00 Pulse 84 01/02/21 12:00 Resp 22 H 01/02/21 12:00 BP 135/74 01/02/21 12:00 Pulse Ox 99 01/02/21 10:00 01/01/21 01/02/21 01/02/21 22:59 06:59 14:59 Intake Total 1450 / 3390 1827 / 5217 870 / 870 Output Total 1000 / 1000 1200 / 2200 Balance 450 / 2390 627 / 3017 870 / 870 Weight last 48 hrs Weight 83.489 kg Weight 83.007 kg Physical Exam Const: COMMON NORMALS: patient oriented x3 HENMT: COMMON NORMALS: normocephalic, atraumatic, hearing grossly normal bilaterally and external ears normal HEAD & SCALP: normocephalic and atraumatic EXTERNAL EAR: Yes external ears normal Eye: COMMON NORMALS: no scleral icterus GENERAL EYE: appearance normal, both eyes and all related structures Chest: CHEST: Yes Symmetrical chest wall rise Resp: COMMON NORMALS: clear to auscultation bilaterally EFFORT & INSPECTION: Yes symmetric chest movement AUSCULTATION: clear to auscultation bilaterally Cardio: COMMON NORMALS: regular rate, regular rhythm, S1 normal heart sound present, S2 normal heart sound present, No gallops present (Cardio), No murmurs present (Cardio), No rub (Cardio) and Peripheral pulses 2+ throughout RATE: regular rate RHYTHM: regular rhythm HEART SOUNDS: S1 normal heart sound present and S2 normal heart sound present PERIPHERAL PULSES: Peripheral pulses 2+ throughout GI: COMMON NORMALS: Normal to inspection, nondistended, normoactive bowel sounds present, Soft to palpation, non-tender, No hepatosplenomegaly present and no masses AUSCULTATION: Yes normoactive bowel sounds PALPATION: Yes Soft to palpation and Yes No hepatosplenomegaly present RECTAL EXAM: Yes deferred OTHER: Midline incision clean dry and intact Extremity: COMMON NORMALS: no clubbing, cyanosis or edema and no pedal edema Neuro: COMMON NORMALS: patient oriented x3 Urinary Catheter Management^: Oreilly: Cath Placed During This Visit: yes Reason for Continuing Indwelling Catheter: Accurate Measurement of Urinary Output in Critically Ill Patients Urinary Catheter Date of Insertion: 12/30/20 Urinary Catheter Time of Insertion: 04:03 Data : 01/02/21 15:51 01/02/21 09:23 Micro: Microbiology 12/30/20 11:25 Stool Lactoferrin - Final Stool Enteric Pathogens (PCR) - Final Parasite Antigen Panel - Final C.difficile Toxin B Gene (PCR) - Final Occult Blood (FIT) - Final A&P Assessment and plan (1) Acute renal failure: Status: Acute Qualifiers: Acute renal failure type: unspecified Qualified Code(s): N17.9 - Acute kidney failure, unspecified (2) Metabolic acidosis: Status: Acute (3) Acute hyperkalemia: Status: Acute (4) S/P right hemicolectomy: Status: Acute (5) CAD (coronary artery disease): Status: Acute (6) Pulmonary hypertension: Status: Acute (7) GI bleed: Status: Acute Acute Renal Failure / Hyperkalemia / Hyponatremia / AG metabolic acidosis -Likely prerenal from poor oral oral hydration, dehydration, diarrhea, polypharmacy, UTI -Oreilly catheter in place - Consult nephrology - S/p calcium gluconate - Repeat BMP every 6 hours -Initialy on D5 half-normal saline with 50 mcg of sodium bicarb at 150 cc was switched to LR @75 CC/Hr -CT scan of the abdomen and pelvis no obstructive uropathy, no radiologic evidence of pyelonephritis -UA does show evidence of UTI, follow urine cultures, follow blood cultures -renal ultrasound:no evidence of obstructive kidney disease. -Urine studies -Lactic acid within normal limits: -Stool studies: C. difficile: Negative,Repeat C.Diff is pending : enteric pathogen PCR: Negative, enteric parasitic panel: Negative -FOBT: Positive - Monitor u/o - May potentially require HD depending on urine output, and electrolyte abnormalities GI bleed: Likely lower GI bleed: S/p 4 units PRBC as well as 1 FFP transfusion: S/p desmopressin 30 mcg x1 dose for possible uremic platelet dysfunction associated bleeding. Repeat C.T abdomen and Pelvis have failed to show any active Source of G.I Bleed. Has Been Empirically on Zosyn possible G/I Translocation Monitor CBC. Possible colonoscopy Nausea/vomiting possible SBO vs Ileus -CT scan of the abdomen pelvis shows small bowel distention concerning for small bowel obstruction. There is noted to be some swirling of the mesenteric vessels and findings could represent an internal hernia. Continued follow-up is recommend. There is some colonic distention with fluid suggesting ileus. There is also some mild thickening of the wall of the sigmoid colon. -Currently no nausea, vomiting, having liquidy bowel movements: -Tolerating GI soft diet. -Empirically cover with zosyn -General surgery on consult UTI: urine cultures: Grossly contaminated Zosyn Right lung infiltrate, no shortness of breath, afebrile, on Zosyn for now Additional medical Problems Adenocarcinoma s/p recent Hemicolectomy Hypertension hx of Nephrolithiasis Coronary artery disease History of pulmonary hypertension, maintain O2 sats greater than 92%, incentive spirometer, flutter valve CAD -no active chest pain, -Cardiac catheterization 2017 showed normal left main, normal LAD, mildly eccentric plaque in the circumflex, tapering narrowing of about 40% in the RCA with one PDA branch with an ostial narrowing of 30-40%. LVEF of 55% -Echocardiogram on last admission showed an EF of 50 to 55%, normal diastolic function GI ppx - Protonix 40 mg IV daily DVT ppx - Heparin 5000 unit q12 currently on hold. - SCDs Attestations Medical Necessity Statement*: Patient needs to be in hospital for the management of ARF/G.I BLeed Coding Level of Care Code Acute Marketing Systems Manager for [facility] Fwd Diagnoses Acute renal failure N17.9 Acute renal failure type: unspecified Metabolic acidosis E87.2 Acute hyperkalemia E87.5 S/P right hemicolectomy Z90.49 CAD (coronary artery disease) I25.10 Pulmonary hypertension I27.20 GI bleed K92.2
[2021-01-02 15:12] LABS: Albumin,Urine Random 32 %; Alpha-1-Globulins Urine Random 4 %; Alpha-2-Globulins Urine Random 16 %; Beta-Globulin,Urine Random 16 %; Gamma Globulin,Urine Random 32 %
--- NOTE | 2021-01-02 15:42 | P.PN_ITS ---
Subjective Subjective: Interval history: He continues to do well. Very small bloody bowel movement this morning after some straining. Passing robust amounts of urine. No extremity edema, shortness of breath or other hypervolemic symptoms. Vitals/I&O/Wt Last Vital Signs Temp 98.3 F 01/02/21 07:00 Pulse 82 01/02/21 14:00 Resp 22 H 01/02/21 12:00 BP 135/74 01/02/21 12:00 Pulse Ox 99 01/02/21 10:00 01/02/21 01/02/21 01/02/21 06:59 14:59 22:59 Intake Total 1827 / 5217 870 / 870 Output Total 1200 / 2200 Balance 627 / 3017 870 / 870 Weight last 48 hrs Weight 83.489 kg Weight 83.007 kg Physical Exam Narrative: EXAM NARRATIVE: Constitutional: Awake, comfortable HEENT: Wet mucosa, no jvp, non icteric Lungs: Bilaterally clear without discernible wheeze or rales in all lung zones CVS: S1 S2, no murmurs Abdo: Soft, BS ok Ext 4: Minimal edema, peripheral perfusion with no cyanosis Neurological: Grossly non-focal Urinary Catheter Management^: Oreilly: Cath Placed During This Visit: yes Reason for Continuing Indwelling Catheter: Accurate Measurement of Urinary Output in Critically Ill Patients Urinary Catheter Date of Insertion: 12/30/20 Urinary Catheter Time of Insertion: 04:03 Data : 01/02/21 06:30 01/02/21 09:23 A&P Additional A&P Information 1. Acute renal failure Improving and so this rec is unchanged, will continue this mgmt with unchanged ivf at the same rate Consistent with severe prerenal azotemia from very poor oral intake in combination with volume loss from diarrhea, diuretics, in the setting of decreased glomerular pressure from ANA inhibitor effect. Creatinine slowly improving with a good urine output. Acidosis now improving also Imaging on admission demonstrated no evidence of obstructive kidney disease. Continue IV hydration with LR now Strict ins and outs Avoid usual nephrotoxic agents Dose medication for GFR less than 15. 2. Chemistry Improving, change ivf to LR at 75mL/hr and add oral KCl x 1 Daily renal panel now ok 3. Status post recent hemicolectomy CT scan suggestive of small bowel obstruction, surgery to input. Last bowel movement yesterday, loose diarrhea. Good bowel sounds on examination. Some hematochezia, s/p DDAVP x 1, mgmt per Dr Alvarado 4. Hemodynamics Currently hemodynamics look robust, continue to monitor hemodynamics closely during hospitalization Thank you for consultation, it is a pleasure to follow these cases with you Exam and interview performed with aid of bedside RN using telemedicine Time spent 20 min inc > 50% of time in face to face counseling Amadeo Corbett MD [facility] [phone] Attestations Medical Necessity Statement*: Eval for WANDA Coding Level of Care Code Acute Media/Instructional Designer for Kathyg Julián
--- NOTE | 2021-01-02 17:23 | P.PN_ITS ---
Subjective Subjective: Interval history: Patient feeling a lot better, denies any nausea vomiting, abdominal pain is minimal, still continues to have loose stools. C. difficile pending, he was started on cholestyramine yesterday Vitals/I&O/Wt Last Vital Signs Temp 98.8 F 01/02/21 16:00 Pulse 86 01/02/21 16:00 Resp 19 H 01/02/21 16:00 BP 92/45 01/02/21 16:00 Pulse Ox 100 01/02/21 16:00 01/02/21 01/02/21 01/02/21 06:59 14:59 22:59 Intake Total 1827 / 5217 870 / 870 Output Total 1200 / 2200 1150 / 1150 Balance 627 / 3017 870 / -280 -1150 / -280 Weight last 48 hrs Weight 184 lb 1 oz Weight 183 lb Physical Exam Narrative: EXAM NARRATIVE: Abdomen: Soft, nondistended, nontender, incision clean dry and intact Urinary Catheter Management^: Oreilly: Cath Placed During This Visit: yes Reason for Continuing Indwelling Catheter: Accurate Measurement of Urinary Output in Critically Ill Patients Urinary Catheter Date of Insertion: 12/30/20 Urinary Catheter Time of Insertion: 04:03 Data : 01/02/21 15:51 01/02/21 09:23 Micro: Microbiology 01/02/21 08:00 C.difficile Toxin B Gene (PCR) - Final Stool A&P Assessment and plan (1) S/P right hemicolectomy: 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 His abdominal pain is minimal, still continues to have loose stools in spite of cholestyramine 4 g 3 times a day. I will continue this for 24 hours more, if there is no improvement, we will add Imodium to address his diarrhea C. difficile: Negative Hematochezia: Appears to be improving, his hemoglobin is stable around 8 and has not had any further bloody bowel movements today CT abdomen pelvis performed performed yesterday showed findings consistent with ileus Acute renal failure: Improving, medical management as per Dr. Knox and Dr. Brady miller Status: Acute Attestations Medical Necessity Statement*: As per primary Coding Level of Care Code Acute Hand Ii Blocker for [facility] Fwd Diagnoses S/P right hemicolectomy Z90.49
[2021-01-02 18:36] LABS: Anion Gap 16.1 (5-19); Blood Urea Nitrogen 72 mg/dL (8-23); Calcium 6.3 mg/dL (8.5-10.5); Carbon Dioxide 19 mmol/L (22-29); Chloride 105 mmol/L (98-107); Glomerular Filtration Rate 20.1 mL/min (90-130); Glucose 121 mg/dL (65-115); Osmolality Calculated 306 mOsm/kg (285-295); Potassium 3.1 mmol/L (3.5-5.1); Sodium 137 mmol/L (136-145)
[2021-01-03] VITALS (14 sets, daily range): BP systolic 117–142; BP diastolic 63–74; PULSE 60–96; RESP 16–27; TEMP 36.6–37.1; O2SAT 96–100
[2021-01-03] MEDS: lactated ringers 1,000 ML 75 ML IV (00:01)
[2021-01-03 05:22] LABS: Basophils % 0.3 %; Eosinophils # 0.7 10^3/uL (0.0-0.8); Eosinophils % 7.1 %; Hematocrit 26.4 % (42.0-52.0); Hemoglobin 8.3 g/dL (11.7-16.6); Lymphocytes # 1.4 10^3/uL (0.8-4.8); Lymphocytes % 13.7 %; Mean Corpuscular HGB Conc 31.4 g/dL (30.0-36.0); Mean Corpuscular Hemoglobin 24.2 pg (28.0-34.0); Mean Platelet Volume 10.6 fL (7.4-10.4); Monocytes # 0.8 10^3/uL (0.2-0.9); Monocytes % 8.1 %; Neutrophils # 6.88 10^3/uL (1.8-7.7); Neutrophils % 69.8 %; Nucleated Red Blood Cells % 0 %; Platelet Count 223 10^3/cmm (130-400); Red Blood Count 3.43 10^6/uL (4.1-5.3); Red Cell Distribution Width 20.5 % (12.1-15.1); White Blood Count 9.9 10^3/uL (4.0-10.0)
[2021-01-03] MEDS: piperacillin-tazobactam 3.375 GM in sodium chloride 0.9% (plus) 50 ML IV (05:56)
[2021-01-03 07:08] LABS: Anion Gap 17.9 (5-19); Blood Urea Nitrogen 57 mg/dL (8-23); Calcium 6.2 mg/dL (8.5-10.5); Carbon Dioxide 18 mmol/L (22-29); Chloride 105 mmol/L (98-107); Glomerular Filtration Rate 29.9 mL/min (90-130); Glucose 96 mg/dL (65-115); Osmolality Calculated 302 mOsm/kg (285-295); Sodium 138 mmol/L (136-145)
[2021-01-03 07:15] LABS: Potassium 2.9 mmol/L (3.5-5.1)
--- NOTE | 2021-01-03 07:28 | PM.PN ---
Subjective Subjective: Interval history: feels better. he is eating. no n/v/f/c/weiss/diarrhea improving. no sob or cp Medications: Reviewed: Yes Medication Review Details: Current Medications Acetaminophen (Acetaminophen 325 Mg Tablet) 650 mg PO Q6H PRN PRN Reason: Mild/Mod Pain Or Temp >/= 101 Hydrocodone Bitart/Acetaminophen (Hydrocodone-Acetaminophen 5-325 Mg Tablet) 1 tab PO Q6H PRN PRN Reason: pain Cholestyramine Resin (Cholestyramine Powder 4 Gm Pkt) 4 gm PO TIDAC [facility] Last Admin: 01/02/21 17:04 Dose: 4 gm Documented by: Piperacillin Sod/Tazobactam (Sod 3.375 gm/ Sodium Chloride) 50 mls @ 12.5 mls/hr IV Q12H [facility]; Protocol Last Admin: 01/03/21 05:56 Dose: 12.5 mls/hr Documented by: Lactated Ringer's (Lactated Ringers) 1,000 mls @ 75 mls/hr IV .[id number] [facility] Last Admin: 01/03/21 00:01 Dose: 75 mls/hr Documented by: Ondansetron HCl (Ondansetron 2 Mg/Ml Sdv 2 Ml) 4 mg IVP Q8H PRN PRN Reason: vomiting, or N/V if npo Pantoprazole Sodium (Pantoprazole 40 Mg Sdv) 40 mg IVP Q12H [facility] Last Admin: 01/02/21 20:05 Dose: 40 mg Documented by: Potassium Chloride (Potassium Chloride Er 20 Meq Tablet) 80 meq PO ONCE ONE Stop: 01/03/21 07:28 Psyllium Hydrophilic Mucilloid (Psyllium Powder Pkt) 1 packet PO BID [facility] Last Admin: 01/02/21 17:04 Dose: 1 packet Documented by: Tamsulosin HCl (Tamsulosin 0.4 Mg Capsule) 0.4 mg PO DAILY [facility] Last Admin: 01/02/21 09:27 Dose: 0.4 mg Documented by: Vitals/I&O/Wt Last Vital Signs Temp 98.7 F 01/03/21 04:00 Pulse 70 01/03/21 06:00 Resp 17 01/03/21 04:00 BP 117/63 01/03/21 04:00 Pulse Ox 96 01/03/21 04:00 01/02/21 01/03/21 01/03/21 22:59 06:59 14:59 Intake Total 550 / 1420 1250 / 2670 Output Total 1150 / 1150 950 / 2100 Balance -600 / 270 300 / 570 Weight last 48 hrs Weight 84.018 kg Weight 83.489 kg Physical Exam Narrative: EXAM NARRATIVE: obese man comfortable in bed- good uop vs noted heent- nc/at, eom i, anicteric neck supple lungs clear b/l heart- irreg, pvc's abd soft, nt, nd, +BS, well healing surgical scar ext no edema neuro- a,a, o x 3 mood good skin - no rash noted Urinary Catheter Management^: Oreilly: Cath Placed During This Visit: yes Reason for Continuing Indwelling Catheter: Accurate Measurement of Urinary Output in Critically Ill Patients Urinary Catheter Date of Insertion: 12/30/20 Urinary Catheter Time of Insertion: 04:03 Data : 01/03/21 04:33 01/03/21 04:33 Micro: Microbiology 01/02/21 08:00 C.difficile Toxin B Gene (PCR) - Final Stool A&P Additional A&P Information 70 yr old man htn, hyperlipidemia, pulm htn, CAD, h/o rt hemicolectomy - here w/ n/v- Q SBO Q ileus- Pt is improving. 1. WANDA -improving prerenal azotemia- will d/c ivf tonight and monitor 2. met acidosis - monitor w/ improving renal fxn 3. hyperkalemia - now low k- replete k and mag and monitor 4. hyponatremia -improved 5. anemia- likely from ACD and recent hemicolectomy monitor chemistries seen and examine dw/ RN- telehealth visit Attestations Medical Necessity Statement*: per medicine. 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
[2021-01-03] MEDS: potassium chloride ER 20 mEq Tablet 40 MEQ PO ×4 (08:09→21:03)
[2021-01-03] MEDS: pantoprazole 40 mg SDV IVP (08:09)
[2021-01-03] MEDS: tamsulosin 0.4 mg Capsule PO (08:09)
[2021-01-03] MEDS: sodium chloride 0.45% 1,000 ML 100 ML IV ×2 (08:10→21:02)
[2021-01-03] MEDS: magnesium sulfate premix 2 GM/50 ML PIGGYBACK IV (08:54)
[2021-01-03] MEDS: psyllium powder Pkt 1 PACKET PO ×2 (09:32→17:24)
--- NOTE | 2021-01-03 11:09 | P.PN_ITS ---
Subjective Subjective: Interval history: No acute events overnight, patient is overall doing better, had couple of loose bowel movement, which are nonbloody. Telemetry monitoring has shown frequent PVCs, likely related to hypomagnesemia and hypokalemia. Medications: Reviewed: Yes Medication Review Details: Current Medications Acetaminophen (Acetaminophen 325 Mg Tablet) 650 mg PO Q6H PRN PRN Reason: Mild/Mod Pain Or Temp >/= 101 Hydrocodone Bitart/Acetaminophen (Hydrocodone-Acetaminophen 5-325 Mg Tablet) 1 tab PO Q6H PRN PRN Reason: pain Cholestyramine Resin (Cholestyramine Powder 4 Gm Pkt) 4 gm PO TIDAC [facility] Last Admin: 01/02/21 17:04 Dose: 4 gm Documented by: Piperacillin Sod/Tazobactam (Sod 3.375 gm/ Sodium Chloride) 50 mls @ 12.5 mls/hr IV Q12H [facility]; Protocol Last Admin: 01/03/21 05:56 Dose: 12.5 mls/hr Documented by: Lactated Ringer's (Lactated Ringers) 1,000 mls @ 75 mls/hr IV .[id number] [facility] Last Admin: 01/03/21 00:01 Dose: 75 mls/hr Documented by: Ondansetron HCl (Ondansetron 2 Mg/Ml Sdv 2 Ml) 4 mg IVP Q8H PRN PRN Reason: vomiting, or N/V if npo Pantoprazole Sodium (Pantoprazole 40 Mg Sdv) 40 mg IVP Q12H [facility] Last Admin: 01/02/21 20:05 Dose: 40 mg Documented by: Potassium Chloride (Potassium Chloride Er 20 Meq Tablet) 80 meq PO ONCE ONE Stop: 01/03/21 07:28 Psyllium Hydrophilic Mucilloid (Psyllium Powder Pkt) 1 packet PO BID [facility] Last Admin: 01/02/21 17:04 Dose: 1 packet Documented by: Tamsulosin HCl (Tamsulosin 0.4 Mg Capsule) 0.4 mg PO DAILY [facility] Last Admin: 01/02/21 09:27 Dose: 0.4 mg Documented by: Vitals/I&O/Wt Last Vital Signs Temp 98.1 F 01/03/21 08:00 Pulse 80 01/03/21 09:30 Resp 18 01/03/21 08:00 BP 131/65 01/03/21 08:00 Pulse Ox 98 01/03/21 09:30 01/02/21 01/03/21 01/03/21 22:59 06:59 14:59 Intake Total 550 / 1420 1250 / 2670 220 / 220 Output Total 1150 / 1150 950 / 2100 475 / 475 Balance -600 / 270 300 / 570 -255 / -255 Weight last 48 hrs Weight 84.018 kg Weight 83.489 kg Physical Exam Const: COMMON NORMALS: patient oriented x3 HENMT: COMMON NORMALS: normocephalic, atraumatic, hearing grossly normal bilaterally and external ears normal HEAD & SCALP: normocephalic and atraumatic EXTERNAL EAR: Yes external ears normal Eye: COMMON NORMALS: no scleral icterus GENERAL EYE: appearance normal, both eyes and all related structures Chest: CHEST: Yes Symmetrical chest wall rise Resp: COMMON NORMALS: clear to auscultation bilaterally EFFORT & INSPECTION: Yes symmetric chest movement AUSCULTATION: clear to auscultation bilaterally Cardio: COMMON NORMALS: regular rate, regular rhythm, S1 normal heart sound present, S2 normal heart sound present, No gallops present (Cardio), No murmurs present (Cardio), No rub (Cardio) and Peripheral pulses 2+ throughout RATE: regular rate RHYTHM: regular rhythm HEART SOUNDS: S1 normal heart sound present and S2 normal heart sound present PERIPHERAL PULSES: Peripheral pulses 2+ throughout GI: COMMON NORMALS: Normal to inspection, nondistended, normoactive bowel hanh nds present, Soft to palpation, non-tender, No hepatosplenomegaly present and no masses AUSCULTATION: Yes normoactive bowel sounds PALPATION: Yes Soft to palpation and Yes No hepatosplenomegaly present RECTAL EXAM: Yes deferred OTHER: Midline incision clean dry and intact Extremity: COMMON NORMALS: no clubbing, cyanosis or edema and no pedal edema Neuro: COMMON NORMALS: patient oriented x3 Urinary Catheter Management^: Oreilly: Cath Placed During This Visit: yes Reason for Continuing Indwelling Catheter: Accurate Measurement of Urinary Output in Critically Ill Patients Urinary Catheter Date of Insertion: 12/30/20 Urinary Catheter Time of Insertion: 04:03 Data : 01/03/21 04:33 01/03/21 04:33 Micro: Microbiology 01/02/21 08:00 C.difficile Toxin B Gene (PCR) - Final Stool A&P Assessment and plan (1) Acute renal failure: Status: Acute Qualifiers: Acute renal failure type: unspecified Qualified Code(s): N17.9 - Acute kidney failure, unspecified (2) Metabolic acidosis: Status: Acute (3) Acute hyperkalemia: Status: Acute (4) S/P right hemicolectomy: Status: Acute (5) CAD (coronary artery disease): Status: Acute (6) Pulmonary hypertension: Status: Acute (7) GI bleed: Status: Acute Acute Renal Failure / Hyperkalemia / Hyponatremia / AG metabolic acidosis -Likely prerenal from poor oral oral hydration, dehydration, diarrhea, polyph armacy, UTI -Oreilly catheter in place - Consult nephrology - S/p calcium gluconate - Repeat BMP every 6 hours -Initialy on D5 half-normal saline with 50 mcg of sodium bicarb at 150 cc was switched to LR @75 CC/Hr.Now on Ns@ 100cc/hr -CT scan of the abdomen and pelvis no obstructive uropathy, no radiologic evidence of pyelonephritis -UA does show evidence of UTI, follow urine cultures, follow blood cultures -renal ultrasound:no evidence of obstructive kidney disease. -Urine studies -Lactic acid within normal limits: -Stool studies: C. difficile: Negative,Repeat C.Diff is pending : Negative, enteric pathogen PCR: Negative, enteric parasitic panel: Negative -FOBT: Positive - Monitor u/o - May potentially require HD depending on urine output, and electrolyte abnormalities GI bleed: Likely lower GI bleed: S/p 4 units PRBC as well as 1 FFP transfusion: S/p desmopressin 30 mcg x1 dose for possible uremic platelet dysfunction associated bleeding. Repeat C.T abdomen and Pelvis have failed to show any active Source of G.I Bleed. Has Been Empirically on Zosyn possible G/I Translocation Monitor CBC. Nausea/vomiting possible SBO vs Ileus -CT scan of the abdomen pelvis shows small bowel distention concerning for small bowel obstruction. There is noted to be some swirling of the mesenteric vessels and findings could represent an internal hernia. Continued follow-up is recommend. There is some colonic distention with fluid suggesting ileus. There is also some mild thickening of the wall of the sigmoid colon. -Currently no nausea, vomiting, having liquidy bowel movements: -Tolerating GI soft diet. -Empirically cover with zosyn -General surgery on consult UTI: urine cultures: Grossly contaminated Zosyn Right lung infiltrate, no shortness of breath, afebrile, on Zosyn for now Additional medical Problems Adenocarcinoma s/p recent Hemicolectomy Hypertension hx of Nephrolithiasis Coronary artery disease History of pulmonary hypertension, maintain O2 sats greater than 92%, incentive spirometer, flutter valve CAD -no active chest pain, -Cardiac catheterization 2017 showed normal left main, normal LAD, mildly eccentric plaque in the circumflex, tapering narrowing of about 40% in the RCA with one PDA branch with an ostial narrowing of 30-40%. LVEF of 55% -Echocardiogram on last admission showed an EF of 50 to 55%, normal diastolic function Hypomagnesemia: Hypokalemia: GI ppx - Protonix 40 mg IV daily DVT ppx - Heparin 5000 unit q12 currently on hold. - SCDs Attestations Medical Necessity Statement*: Patient needs to be in hospital for management of renal failure, GI bleed. 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
[2021-01-03] MEDS: cholestyramine powder 4 gm Pkt PO ×2 (11:48→17:24)
--- NOTE | 2021-01-03 14:27 | PC.SOCIAL ---
IMM Updated Updated pt & daughter on Pg 2 IMM. No questions voiced. Provided pt a copy. Signed, dated, & timed copy in chart.
--- NOTE | 2021-01-03 15:22 | P.PN_ITS ---
Subjective Subjective: Interval history: Patient has been doing well denies any significant pain, nausea or vomiting, still had 3 loose bowel movements today Vitals/I&O/Wt Last Vital Signs Temp 97.9 F 01/03/21 12:00 Pulse 63 01/03/21 12:00 Resp 16 01/03/21 12:00 BP 138/65 01/03/21 12:00 Pulse Ox 100 01/03/21 12:00 01/03/21 01/03/21 01/03/21 06:59 14:59 22:59 Intake Total 1250 / 2670 700 / 700 Output Total 950 / 2100 475 / 475 Balance 300 / 570 225 / 225 Weight last 48 hrs Weight 185 lb 3.648 oz Weight 184 lb 1 oz Physical Exam Narrative: EXAM NARRATIVE: Given: Soft, nontender, not distended, incisions healing well Urinary Catheter Management^: Oreilly: Cath Placed During This Visit: yes Reason for Continuing Indwelling Catheter: Accurate Measurement of Urinary Output in Critically Ill Patients Urinary Catheter Date of Insertion: 12/30/20 Urinary Catheter Time of Insertion: 04:03 Data : 01/03/21 04:33 01/03/21 04:33 Micro: Microbiology 01/02/21 08:00 C.difficile Toxin B Gene (PCR) - Final Stool A&P Assessment and plan (1) S/P right hemicolectomy: 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 His abdominal pain is minimal, still continues to have loose stools in spite of cholestyramine 4 g 3 times a day. Add Lomotil 1 tab every 6 hours C. difficile: Negative Hopefully we can get his diarrhea under control prior to discharge to senior care Hematochezia: his hemoglobin is stable around 8.3 and has not had any further bloody bowel movements today CT abdomen pelvis 01/01/2021 findings consistent with ileus Acute renal failure: Improving, medical management as per Dr. Knox and Dr. 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
[2021-01-03 16:54] LABS: Alanine Aminotransferase 23 U/L (0-41); Albumin Level 2.7 g/dL (3.5-5.2); Alkaline Phosphatase 61 IU/L (40-130); Anion Gap 13.5 (5-19); Aspartate Amino Transferase 26 U/L (0-40); Blood Urea Nitrogen 43 mg/dL (8-23); Calcium 6.3 mg/dL (8.5-10.5); Carbon Dioxide 19 mmol/L (22-29); Chloride 107 mmol/L (98-107); Globulin 2.5 g/dL (1.3-4.6); Glomerular Filtration Rate 35.4 mL/min (90-130); Glucose 114 mg/dL (65-115); Magnesium 1.2 mg/dL (1.7-2.3); Osmolality Calculated 294 mOsm/kg (285-295); Potassium 3.5 mmol/L (3.5-5.1); Sodium 136 mmol/L (136-145); Total Bilirubin 0.3 mg/dL (0.15-1.2); Total Protein 5.2 g/dL (6.6-8.7)
[2021-01-03] MEDS: pantoprazole DR 40 mg Tablet PO (17:28)
[2021-01-04] VITALS (15 sets, daily range): BP systolic 129–139; BP diastolic 65–87; PULSE 68–91; RESP 16–27; TEMP 36.3–37.2; O2SAT 96–100
[2021-01-04 04:49] LABS: Basophils % 0.2 %; Eosinophils # 0.7 10^3/uL (0.0-0.8); Eosinophils % 5.5 %; Hematocrit 24.2 % (42.0-52.0); Hemoglobin 7.5 g/dL (11.7-16.6); Lymphocytes # 1.6 10^3/uL (0.8-4.8); Lymphocytes % 12.5 %; Mean Corpuscular Hemoglobin 24.3 pg (28.0-34.0); Mean Corpuscular Volume 78.3 fL (80-94); Mean Platelet Volume 10.6 fL (7.4-10.4); Monocytes # 0.9 10^3/uL (0.2-0.9); Neutrophils # 9.22 10^3/uL (1.8-7.7); Neutrophils % 73.9 %; Nucleated Red Blood Cells % 0 %; Platelet Count 211 10^3/cmm (130-400); Red Blood Count 3.09 10^6/uL (4.1-5.3); Red Cell Distribution Width 20.5 % (12.1-15.1); White Blood Count 12.5 10^3/uL (4.0-10.0)
[2021-01-04 05:02] LABS: Alanine Aminotransferase 30 U/L (0-41); Albumin Level 2.7 g/dL (3.5-5.2); Alkaline Phosphatase 63 IU/L (40-130); Anion Gap 12.6 (5-19); Aspartate Amino Transferase 37 U/L (0-40); Blood Urea Nitrogen 32 mg/dL (8-23); Calcium 6.6 mg/dL (8.5-10.5); Carbon Dioxide 19 mmol/L (22-29); Chloride 109 mmol/L (98-107); Globulin 2.6 g/dL (1.3-4.6); Glomerular Filtration Rate 37.7 mL/min (90-130); Glucose 105 mg/dL (65-115); Magnesium 1.1 mg/dL (1.7-2.3); Osmolality Calculated 291 mOsm/kg (285-295); Phosphorus 1.9 mg/dL (2.5-4.5); Potassium 3.6 mmol/L (3.5-5.1); Sodium 137 mmol/L (136-145); Total Bilirubin 0.4 mg/dL (0.15-1.2); Total Protein 5.3 g/dL (6.6-8.7)
[2021-01-04] MEDS: sodium chloride 0.45% 1,000 ML 100 ML IV (06:07)
[2021-01-04] MEDS: cholestyramine powder 4 gm Pkt PO ×3 (06:40→18:20)
[2021-01-04] MEDS: psyllium powder Pkt 1 PACKET PO (08:50)
[2021-01-04] MEDS: tamsulosin 0.4 mg Capsule PO (08:51)
[2021-01-04] MEDS: pantoprazole DR 40 mg Tablet PO ×2 (08:51→18:20)
[2021-01-04] MEDS: magnesium sulfate premix 2 GM/50 ML PIGGYBACK IV (08:52)
--- NOTE | 2021-01-04 09:37 | PM.PN ---
Subjective Subjective: Interval history: Overall patient is doing fine.Tolerating regular diet well,no abdominal pain,nausea,vomiting,had 3 loose stool. Medications: Reviewed: Yes Medication Review Details: Current Medications Acetaminophen (Acetaminophen 325 Mg Tablet) 650 mg PO Q6H PRN PRN Reason: Mild/Mod Pain Or Temp >/= 101 Hydrocodone Bitart/Acetaminophen (Hydrocodone-Acetaminophen 5-325 Mg Tablet) 1 tab PO Q6H PRN PRN Reason: pain Cholestyramine Resin (Cholestyramine Powder 4 Gm Pkt) 4 gm PO TIDAC [facility] Last Admin: 01/02/21 17:04 Dose: 4 gm Documented by: Piperacillin Sod/Tazobactam (Sod 3.375 gm/ Sodium Chloride) 50 mls @ 12.5 mls/hr IV Q12H [facility]; Protocol Last Admin: 01/03/21 05:56 Dose: 12.5 mls/hr Documented by: Lactated Ringer's (Lactated Ringers) 1,000 mls @ 75 mls/hr IV .[id number] [facility] Last Admin: 01/03/21 00:01 Dose: 75 mls/hr Documented by: Ondansetron HCl (Ondansetron 2 Mg/Ml Sdv 2 Ml) 4 mg IVP Q8H PRN PRN Reason: vomiting, or N/V if npo Pantoprazole Sodium (Pantoprazole 40 Mg Sdv) 40 mg IVP Q12H [facility] Last Admin: 01/02/21 20:05 Dose: 40 mg Documented by: Potassium Chloride (Potassium Chloride Er 20 Meq Tablet) 80 meq PO ONCE ONE Stop: 01/03/21 07:28 Psyllium Hydrophilic Mucilloid (Psyllium Powder Pkt) 1 packet PO BID [facility] Last Admin: 01/02/21 17:04 Dose: 1 packet Documented by: Tamsulosin HCl (Tamsulosin 0.4 Mg Capsule) 0.4 mg PO DAILY [facility] Last Admin: 01/02/21 09:27 Dose: 0.4 mg Documented by: Vitals/I&O/Wt Last Vital Signs Temp 97.8 F 01/04/21 08:00 Pulse 81 01/04/21 08:00 Resp 19 H 01/04/21 08:00 BP 129/76 01/04/21 08:00 Pulse Ox 98 01/04/21 08:00 01/03/21 01/04/21 01/04/21 22:59 06:59 14:59 Intake Total 1240 / 1940 908.333 / 2848.333 360 / 360 Output Total 600 / 1075 1500 / 2575 Balance 640 / 865 -591.667 / 273.333 360 / 360 Weight last 48 hrs Weight 86.682 kg Weight 84.018 kg Physical Exam Const: COMMON NORMALS: patient oriented x3 HENMT: COMMON NORMALS: normocephalic, atraumatic, hearing grossly normal bilaterally and external ears normal HEAD & SCALP: normocephalic and atraumatic EXTERNAL EAR: Yes external ears normal Eye: COMMON NORMALS: no scleral icterus GENERAL EYE: appearance normal, both eyes and all related structures Chest: CHEST: Yes Symmetrical chest wall rise Resp: COMMON NORMALS: clear to auscultation bilaterally EFFORT & INSPECTION: Yes symmetric chest movement AUSCULTATION: clear to auscultation bilaterally Cardio: COMMON NORMALS: regular rate, regular rhythm, S1 normal heart sound present, S2 normal heart sound present, No gallops present (Cardio), No murmurs present (Cardio), No rub (Cardio) and Peripheral pulses 2+ throughout RATE: regular rate RHYTHM: regular rhythm HEART SOUNDS: S1 normal heart sound present and S2 normal heart sound present PERIPHERAL PULSES: Peripheral pulses 2+ throughout GI: COMMON NORMALS: Normal to inspection, nondistended, normoactive bowel sounds present, Soft to palpation, non-tender, No hepatosplenomegaly present and no masses AUSCULTATION: Yes normoactive bowel sounds PALPATION: Yes Soft to palpation and Yes No hepatosplenomegaly present RECTAL EXAM: Yes deferred OTHER: Midline incision clean dry and intact Extremity: COMMON NORMALS: no clubbing, cyanosis or edema and no pedal edema Neuro: COMMON NORMALS: patient oriented x3 Urinary Catheter Management^: O[place]illy: Cath Placed During This Visit: yes Reason for Continuing Indwelling Catheter: Accurate Measurement of Urinary Output in Critically Ill Patients Urinary Catheter Date of Insertion: 12/30/20 Urinary Catheter Time of Insertion: 04:03 Data : 01/04/21 04:14 01/04/21 04:14 A&P Assessment and plan (1) Acute renal failure: Status: Acute Qualifiers: Acute renal failure type: unspecified Qualified Code(s): N17.9 - Acute kidney failure, unspecified (2) Metabolic acidosis: Status: Acute (3) Acute hyperkalemia: Status: Acute (4) S/P right hemicolectomy: Status: Acute (5) CAD (coronary artery disease): Status: Acute (6) Pulmonary hypertension: Status: Acute (7) GI bleed: Status: Acute Acute Renal Failure / Hyperkalemia / Hyponatremia / AG metabolic acidosis -Likely prerenal from poor oral oral hydration, dehydration, diarrhea, polypharmacy, UTI -Oreilly catheter in place - Consult nephrology - S/p calcium gluconate - Repeat BMP every 6 hours -Initialy on D5 half-normal saline with 50 mcg of sodium bicarb at 150 cc was switched to LR @75 CC/Hr.followed by Ns@ 100cc/hr.I.V Fluids were stopped today. -CT scan of the abdomen and pelvis no obstructive uropathy, no radiologic evidence of pyelonephritis -UA does show evidence of UTI, follow urine cultures, follow blood cultures -renal ultrasound:no evidence of obstructive kidney disease. -Urine studies -Lactic acid within normal limits: -Stool studies: C. difficile: Negative,Repeat C.Diff is pending : Negative, enteric pathogen PCR: Negative, enteric parasitic panel: Negative -FOBT: Positive - Monitor u/o - May potentially require HD depending on urine output, and electrolyte abnormalities GI bleed: Likely lower GI bleed: S/p 5 units PRBC as well as 1 FFP transfusion: S/p desmopressin 30 mcg x1 dose for possible uremic platelet dysfunction associated bleeding. Repeat C.T abdomen and Pelvis have failed to show any active Source of G.I Bleed. Has Been Empirically on Zosyn for possible G/I Translocation Monitor CBC. Nausea/vomiting possible SBO vs Ileus -CT scan of the abdomen pelvis shows small bowel distention concerning for small bowel obstruction. There is noted to be some swirling of the mesenteric vessels and findings could represent an internal hernia. Continued follow-up is recommend. There is some colonic distention with fluid suggesting ileus. There is also some mild thickening of the wall of the sigmoid colon. -Currently no nausea, vomiting, having liquidy bowel movements: -Tolerating GI soft diet. -Empirically cover with zosyn -General surgery on consult UTI: urine cultures: Grossly contaminated Zosyn Right lung infiltrate, no shortness of breath, afebrile, on Zosyn for now Additional medical Problems Adenocarcinoma s/p recent Hemicolectomy Hypertension hx of Nephrolithiasis Coronary artery disease History of pulmonary hypertension, maintain O2 sats greater than 92%, incentive spirometer, flutter valve CAD -no active chest pain, -Cardiac catheterization 2017 showed normal left main, normal LAD, mildly eccentric plaque in the circumflex, tapering narrowing of about 40% in the RCA with one PDA branch with an ostial narrowing of 30-40%. LVEF of 55% -Echocardiogram on last admission showed an EF of 50 to 55%, normal diastolic function Hypomagnesemia: Hypokalemia: GI ppx - Protonix 40 mg IV daily DVT ppx - Heparin 5000 unit q12 currently on hold. - SCDs Attestations Medical Necessity Statement*: Patient needs to be in hospital for the management of ARF,G.I Bleed. Coding Level of Care Code Acute Emts for [facility] Fwd Diagnoses Acute renal failure N17.9 Acute renal failure type: unspecified Metabolic acidosis E87.2 Acute hyperkalemia E87.5 S/P right hemicolectomy Z90.49 CAD (coronary artery disease) I25.10 Pulmonary hypertension I27.20 GI bleed K92.2
--- NOTE | 2021-01-04 11:58 | PM.PN ---
Subjective Subjective: Interval history: No new issues, he feels well today. No extremity edema, shortness of breath or other hypervolemic symptoms. Tolerating the intravenous fluid normally. Mobilizing well on the damon, no further bloody bowel movements. Eating and drinking well. Medications: Reviewed: Yes Medication Review Details: Current Medications Acetaminophen (Acetaminophen 325 Mg Tablet) 650 mg PO Q6H PRN PRN Reason: Mild/Mod Pain Or Temp >/= 101 Hydrocodone Bitart/Acetaminophen (Hydrocodone-Acetaminophen 5-325 Mg Tablet) 1 tab PO Q6H PRN PRN Reason: pain Cholestyramine Resin (Cholestyramine Powder 4 Gm Pkt) 4 gm PO TIDAC [facility] Last Admin: 01/02/21 17:04 Dose: 4 gm Documented by: Piperacillin Sod/Tazobactam (Sod 3.375 gm/ Sodium Chloride) 50 mls @ 12.5 mls/hr IV Q12H [facility]; Protocol Last Admin: 01/03/21 05:56 Dose: 12.5 mls/hr Documented by: Lactated Ringer's (Lactated Ringers) 1,000 mls @ 75 mls/hr IV .[id number] [facility] Last Admin: 01/03/21 00:01 Dose: 75 mls/hr Documented by: Ondansetron HCl (Ondansetron 2 Mg/Ml Sdv 2 Ml) 4 mg IVP Q8H PRN PRN Reason: vomiting, or N/V if npo Pantoprazole Sodium (Pantoprazole 40 Mg Sdv) 40 mg IVP Q12H [facility] Last Admin: 01/02/21 20:05 Dose: 40 mg Documented by: Potassium Chloride (Potassium Chloride Er 20 Meq Tablet) 80 meq PO ONCE ONE Stop: 01/03/21 07:28 Psyllium Hydrophilic Mucilloid (Psyllium Powder Pkt) 1 packet PO BID [facility] Last Admin: 01/02/21 17:04 Dose: 1 packet Documented by: Tamsulosin HCl (Tamsulosin 0.4 Mg Capsule) 0.4 mg PO DAILY [facility] Last Admin: 01/02/21 09:27 Dose: 0.4 mg Documented by: Vitals/I&O/Wt Last Vital Signs Temp 97.8 F 01/04/21 08:00 Pulse 81 01/04/21 08:00 Resp 19 H 01/04/21 08:00 BP 129/76 01/04/21 08:00 Pulse Ox 98 01/04/21 08:00 01/03/21 01/04/21 01/04/21 22:59 06:59 14:59 Intake Total 1240 / 1940 908.333 / 2848.333 410 / 410 Output Total 600 / 1075 1500 / 2575 500 / 500 Balance 640 / 865 -591.667 / 273.333 -90 / -90 Weight last 48 hrs Weight 86.682 kg Weight 84.018 kg Physical Exam Narrative: EXAM NARRATIVE: Constitutional: Awake, comfortable HEENT: Wet mucosa, no jvp, non icteric Lungs: Bilaterally clear without discernible wheeze or rales in all lung zones CVS: S1 S2, no murmurs Abdo: Soft, BS ok Ext 4: Minimal edema, peripheral perfusion with no cyanosis Neurological: Grossly non-focal Urinary Catheter Management^: Oreilly: Cath Placed During This Visit: yes, but has since been removed by the nurse Reason for Continuing Indwelling Catheter: Not indwelling catheter Urinary Catheter Date of Insertion: 12/30/20 Urinary Catheter Time of Insertion: 04:03 Date Urinary Catheter Removed: 01/04/21 Time Urinary Catheter Discontinued: 10:30 Data : 01/04/21 04:14 01/04/21 04:14 A&P Additional A&P Information 70 yr old man htn, hyperlipidemia, pulm htn, CAD, h/o rt hemicolectomy - here w/ n/v- Q SBO Q ileus- Pt is improving. 1. WANDA -improving prerenal azotemia - DC ivf 2. met acidosis - monitor w/ improving renal fxn non critical 3. hyperkalemia - now low k- replete k and mag and monitor 4. hyponatremia -improved 5. anemia - likely from ACD and recent hemicolectomy Renal issues are now stable. I will sign off his case at this time. Please not hesitate to call our team should we be of further assistance in his care. 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
--- NOTE | 2021-01-04 12:35 | PC.CHAP ---
Pastoral Care Encounter/Spiritual Assessment Type of Contact [] Declined polisher implant visit [] Patient/Family/Request visit [] Outpatient visit [xx] Follow-up visit [] Physician referral [] Code/Alert [] Routine visit [] Staff referral [] Actively dying [] Patient sleeping [] Family support [] [] Out of room [] Palliative care [] [] Receiving care in room [] Pre-surgical visit [] Trauma [xx] Long length of stay [] ICU visit [] Other: Relational/Emotional Strength [xx] Patient feels connected with others/family/visitors/staff [] Distress [] Loneliness/isolation [] Abandonment Spirituality of Patient [xx] Person of Jessica [] Attends Oriental Orthodox of their Jessica [xx] Believes in Prayer [xx] Reads Bible or Druze materials [] There are Spiritual issues to be addressed Parking Lot Spotter Interventions [xx] Prayer [xx] Active listening [xx] Non-anxious presence [] Spiritual/emotional support [] Crisis/trauma care [] Spiritual counseling [] Bereavement support [] Provided bereavement packet [] Provided Bible/devotional materials [] Provided toy/stuffed animal, coloring book to patient or family member [] Provided Communion [] Anointing/Brick [] Salvation [xx] Completed spiritual assessment [] Other: Impact on Illness or Injury [] Angry [] Fearful [] Anxious [] Often cries [] Exhaustion [] Unable to work [] Unable to attend judaism [] Unable to walk/stand [] Unable to read [] Unable to drive [] Unable to eat/drink [] Unable to sleep [] Unable to be with family [] Patient intubated [] Other: Summary Patient stated he is much better and will be transitioning to [facility] correction for rehab a few weeks then home to his . He is comfortable with this plan of action. Time spent with patient 6 minutes
--- NOTE | 2021-01-04 12:49 | PM.PN ---
Subjective Subjective: Interval history: Patient denies any abdominal pain, tolerating regular diet, had 3 loose bowel movements overnight Vitals/I&O/Wt Last Vital Signs Temp 98.7 F 01/04/21 12:00 Pulse 90 01/04/21 12:00 Resp 21 H 01/04/21 12:00 BP 133/87 01/04/21 12:00 Pulse Ox 98 01/04/21 12:00 01/03/21 01/04/21 01/04/21 22:59 06:59 14:59 Intake Total 1240 / 2848.333 908.333 / 2848.333 650 / 650 Output Total 600 / 2575 1500 / 2575 500 / 500 Balance 640 / 273.333 -591.667 / 273.333 150 / 150 Weight last 48 hrs Weight 191 lb 1.6 oz Weight 185 lb 3.648 oz Physical Exam Narrative: EXAM NARRATIVE: Abdomen: Soft, nontender, nondistended, incision clean dry and intact Urinary Catheter Management^: O[place]: Cath Placed During This Visit: yes, but has since been removed by the nurse Reason for Continuing Indwelling Catheter: Not indwelling catheter Urinary Catheter Date of Insertion: 12/30/20 Urinary Catheter Time of Insertion: 04:03 Date Urinary Catheter Removed: 01/04/21 Time Urinary Catheter Discontinued: 10:30 Data : 01/04/21 04:14 01/04/21 04:14 A&P Assessment and plan (1) S/P right hemicolectomy: 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 His abdominal pain is minimal, still continues to have loose stools in spite of cholestyramine 4 g 3 times a day. Added Lomotil 1 tab every 6 hours C. difficile: Negative Hopefully we can get his diarrhea under control prior to discharge to penit[facility]iary Hematochezia: his hemoglobin is down to 7.5 and has not had any further bloody bowel movements today CT abdomen pelvis 01/01/2021 findings consistent with ileus, consider iron replacement therapy Acute renal failure: Improving, medical management as per Dr. Knox and Dr. Alexis Consider discontinuing [place]illy catheter in preparation for discharge to penitentiary Status: Acute Attestations Medical Necessity Statement*: As per primary Coding Level of Care Code Acute Pharmacy Retail Support Specialist for Chg Fwd Diagnoses S/P right hemicolectomy Z90.49
--- NOTE | 2021-01-04 15:17 | PC.NURSE ---
report called to amber benavides VS stable, transporting by wheelchair to med surg floor
[2021-01-04 19:15] LABS: Basophils # 0.1 10^3/uL (0.0-0.1); Basophils % 0.5 %; Eosinophils # 0.6 10^3/uL (0.0-0.8); Eosinophils % 4.4 %; Hematocrit 29.7 % (42.0-52.0); Hemoglobin 9.1 g/dL (11.7-16.6); Lymphocytes # 1.5 10^3/uL (0.8-4.8); Lymphocytes % 10.6 %; Mean Corpuscular HGB Conc 30.6 g/dL (30.0-36.0); Mean Corpuscular Hemoglobin 24.9 pg (28.0-34.0); Mean Corpuscular Volume 81.4 fL (80-94); Mean Platelet Volume 10.9 fL (7.4-10.4); Monocytes % 7.2 %; Neutrophils % 76.6 %; Nucleated Red Blood Cells % 0 %; Platelet Count 194 10^3/cmm (130-400); Red Blood Count 3.65 10^6/uL (4.1-5.3); Red Cell Distribution Width 20.1 % (12.1-15.1); White Blood Count 14.2 10^3/uL (4.0-10.0)
[2021-01-05 04:00] VITALS: BP 136/86; PULSE 89; RESP 16; TEMP 36.7; O2SAT 95
[2021-01-05 06:00] VITALS: PULSE 91
[2021-01-05 06:14] LABS: Basophils # 0.1 10^3/uL (0.0-0.1); Basophils % 0.4 %; Eosinophils # 0.8 10^3/uL (0.0-0.8); Eosinophils % 4.7 %; Hematocrit 29.2 % (42.0-52.0); Hemoglobin 9.1 g/dL (11.7-16.6); Lymphocytes # 1.8 10^3/uL (0.8-4.8); Lymphocytes % 11.2 %; Mean Corpuscular HGB Conc 31.2 g/dL (30.0-36.0); Mean Corpuscular Hemoglobin 24.7 pg (28.0-34.0); Mean Corpuscular Volume 79.3 fL (80-94); Mean Platelet Volume 10.2 fL (7.4-10.4); Monocytes # 1.1 10^3/uL (0.2-0.9); Monocytes % 6.9 %; Neutrophils # 12.25 10^3/uL (1.8-7.7); Neutrophils % 76.2 %; Nucleated Red Blood Cells % 0 %; Platelet Count 227 10^3/cmm (130-400); Red Blood Count 3.68 10^6/uL (4.1-5.3); Red Cell Distribution Width 19.9 % (12.1-15.1); White Blood Count 16.1 10^3/uL (4.0-10.0)
[2021-01-05] MEDS: cholestyramine powder 4 gm Pkt PO ×2 (06:18→12:31)
[2021-01-05 06:43] LABS: Alanine Aminotransferase 28 U/L (0-41); Albumin Level 2.9 g/dL (3.5-5.2); Alkaline Phosphatase 66 IU/L (40-130); Anion Gap 16.3 (5-19); Aspartate Amino Transferase 24 U/L (0-40); Blood Urea Nitrogen 17 mg/dL (8-23); Calcium 6.9 mg/dL (8.5-10.5); Carbon Dioxide 16 mmol/L (22-29); Chloride 108 mmol/L (98-107); Globulin 2.8 g/dL (1.3-4.6); Glomerular Filtration Rate 60.2 mL/min (90-130); Glucose 114 mg/dL (65-115); Magnesium 1.3 mg/dL (1.7-2.3); Osmolality Calculated 286 mOsm/kg (285-295); Phosphorus 1.6 mg/dL (2.5-4.5); Potassium 3.3 mmol/L (3.5-5.1); Sodium 137 mmol/L (136-145); Total Bilirubin 0.3 mg/dL (0.15-1.2); Total Protein 5.7 g/dL (6.6-8.7)
[2021-01-05 08:00] VITALS: BP 128/81; PULSE 81; RESP 18; TEMP 37.4; O2SAT 97
[2021-01-05 09:11] LABS: Magnesium 1.2 mg/dL (1.7-2.3)
[2021-01-05] MEDS: pantoprazole DR 40 mg Tablet PO (09:59)
[2021-01-05] MEDS: tamsulosin 0.4 mg Capsule PO (09:59)
[2021-01-05] MEDS: magnesium sulfate premix 4 GM/100 ML PREMIX IV (10:00)
[2021-01-05 11:45] VITALS: BP 136/85; PULSE 108; RESP 17; TEMP 36.9; O2SAT 97
--- NOTE | 2021-01-05 11:55 | DCPLANNER ---
Pg 2 of IM updated and reviewed with pt. No questions, copy provided.
--- NOTE | 2021-01-05 12:43 | P.DS_ITS ---
Discharge Providers Date of Admission: 12/29/20 23:25 Date of Discharge: January 05, 2021 Attending Provider at Admission: Delfino Soriano Attending Provider at Discharge: Jose Juan Knox MD Primary Care Provider: Eh Haddad MD Diagnoses at Discharge Discharge Diagnosis (1) Acute renal failure: Status: Resolved Qualifiers: Acute renal failure type: unspecified Qualified Code(s): N17.9 - Acute kidney failure, unspecified (2) Metabolic acidosis: Status: Resolved (3) Acute hyperkalemia: Status: Resolved (4) S/P right hemicolectomy: Status: Acute (5) CAD (coronary artery disease): Status: Chronic (6) Pulmonary hypertension: Status: Chronic (7) GI bleed: Status: Resolved Reason for Visit Reason for Visit: RESP. DISTRESS Hospital Course Hospital Course 70-year-old male with a past medical history significant for hypertension, dyslipidemia, erectile dysfunction, pulmonary hypertension, nonobstructive coronary artery disease, chronic grade 1 diastolic dysfunction and colon adenocarcinoma status post recent right sided hemicolectomy on 12/18/2020 who presented to the hospital with nausea, vomiting and abdominal discomfort. Patient stated these symptoms start post op after discharge on 12/19. Laboratory workup on arrival today showed a WBC of 16.7, hemoglobin of 10.3, hematocrit 35.9 and platelet count of 525. Sodium 125, potassium 6.3, chloride 84, bicarb 7, BUN 177 and creatinine of 14.4. lactic acid of 1.1. Lipase of 1256. UA showed trace leukocyte esterase, > 100 RBC, 5-10 WBC Imaging studies included a CT abd/Pelvis which showed small bowel distention concerning for small bowel obstruction. Also noted to have some colonic distention with fluid suggesting ileum and mild thickening of the sigmoid colon. No evidence of bowel perforation. Chest x-ray showed small right pleural effusion. CT head was also done which also did not show any acute abnormality. Patient was admitted for management of acute renal failure (prerenal) secondary to severe dehydration secondary to nausea vomiting and diarrhea, as well as hyperkalemia , metabolic acidosis. Patient was kept on aggressive IV hydration, along with bicarb replacement, for severe metabolic acidosis coming from acute renal failure,CT scan of the abdomen and pelvis no obstructive uropathy, no radiologic evidence of pyelonephritis, UA does show evidence of UTI, follow urine cultures, follow blood cultures.Renal ultrasound:no evidence of obstructive kidney disease.Stool studies: C. difficile: Negative,Repeat C.Diff is pending : Negative, enteric pathogen PCR: Negative, enteric parasitic panel: Negative.Acute renal failure has resolved at the time of discharge, BUN and serum creatinine at his baseline.Metabolic acidosis has resolved. For his diarrhea patient was started on Metamucil the line thought process was that after hemicolectomy diarrhea is a common complication, due to removal of ileocecal valve and it usually resolves spontaneously. Later cholestyramine and Lomotil was tried.At the time of discharge Diarrhea was improving, stool was getting well formed, though still having 2-3 bowel movements daily. Hospital course was also complicated by GI bleed: For which he had to be transfused 5 units PRBC, 1 FFP, he also received desmopressin, for uremic platelet dysfunction associated bleeding. Patient was empirically kept on Zosyn throughout the hospital stay, for possible colitis or GI translocation associated with bleeding.Aggressive electrolyte corrections were also undertaken.Patient responded well to the above medical management. And was discharged in stable condition to custodial facility for further rehabilitation.He will continue to follow with primary care physician as well as Dr. Alvarado as an Outpatient. Physical Exam Const: COMMON NORMALS: patient oriented x3 HENMT: COMMON NORMALS: normocephalic, atraumatic, hearing grossly normal bilaterally and external ears normal HEAD & SCALP: normocephalic and atraumatic EXTERNAL EAR: Yes external ears normal Eye: COMMON NORMALS: no scleral icterus GENERAL EYE: appearance normal, both eyes and all related structures Chest: CHEST: Yes Symmetrical chest wall rise Resp: COMMON NORMALS: clear to auscultation bilaterally EFFORT & INSPECTION: Yes symmetric chest movement AUSCULTATION: clear to auscultation bilaterally Cardio: COMMON NORMALS: regular rate, regular rhythm, S1 normal heart sound present, S2 normal heart sound present, No gallops present (Cardio), No murmurs present (Cardio), No rub (Cardio) and Peripheral pulses 2+ throughout RATE: regular rate RHYTHM: regular rhythm HEART SOUNDS: S1 normal heart sound present and S2 normal heart sound present PERIPHERAL PULSES: Peripheral pulses 2+ throughout GI: COMMON NORMALS: Normal to inspection, nondistended, normoactive bowel sounds present, Soft to palpation, non-tender, No hepatosplenomegaly present and no masses AUSCULTATION: Yes normoactive bowel sounds PALPATION: Yes Soft to palpation and Yes No hepatosplenomegaly present RECTAL EXAM: Yes deferred OTHER: Midline incision clean dry and intact Extremity: COMMON NORMALS: no clubbing, cyanosis or edema and no pedal edema Neuro: COMMON NORMALS: patient oriented x3 Urinary Catheter Management^: [place]: Cath Placed During This Visit: yes, but has since been removed by the nurse Reason for Continuing Indwelling Catheter: Accurate Measurement of Urinary Output in Critically Ill Patients Urinary Catheter Date of Insertion: 12/30/20 Urinary Catheter Time of Insertion: 04:03 Date Urinary Catheter Removed: 01/04/21 Time Urinary Catheter Discontinued: 10:30 Discharge Data Data Completed and Pending: Completed Studies During Hospitalization Category Date Time Status CT abdomen pelvis wo con [id number] Rout ine Cat Scan 01/01/21 19:[address] abdomen pelvis wo con [id number] Urge nt Cat Scan 12/29/20 19:[address] head wo con* 7 [id number] Urgent Cat Scan 12/29/20 19:57 Completed XR chest 1V kelly ble [id number] Urgent Exams 12/29/20 19:57 Completed US renal BI* [id number] Routine Ultrasound 12/30/20 08:57 Completed Pending at discharge Category Date Time Status ABO/Rh Type Stat Lab 12/30/20 21:34 Results Complete Blood Co unt w/Auto AM LABS Lab 01/06/21 04:00 Ordered Complete Crossmat ch Stat Lab 12/30/20 21:34 Results Comprehensive Met abolic Panel AM LA BS Lab 01/06/21 04:00 Ordered Frozen Plasma FZ <24 1st Cont Routi ne Lab 01/01/21 19:07 Results Magnesium AM LABS Lab 01/06/21 04:00 Ordered PRBC [Leukocyte R educed RBC] Stat Lab 12/30/20 21:34 Results Phosphorus AM LAB S Lab 01/06/21 04:00 Ordered Type and Screen S tat Lab 12/30/20 21:34 Results Labs from last 24 hours 01/05/21 01/05/21 01/05/21 08:29 05:17 05:17 WBC 16.1 H RBC 3.68 L Hgb 9.1 L Hct 29.2 L MCV 79.3 L MCH 24.7 L MCHC 31.2 RDW 19.9 H Plt Count 227 MPV 10.2 Neut % (Auto) 76.2 Lymph % (Auto) 11.2 [place] % (Auto) 6.9 Eos % (Auto) 4.7 Baso % (Auto) 0.4 Neut # (Auto) 12.25 H Lymph # (Auto) 1.8 [place] # (Auto) 1.1 H Eos # (Auto) 0.8 Baso # (Auto) 0.1 Nucleated RBC % (a uto) 0 Nucleated RBCs # 0.0 Sodium 137 Potassium 3.3 L Chloride 108 H Carbon Dioxide 16 L Anion Gap 16.3 BUN 17 Creatinine 1.2 GFR Calculation 60.2 L Glucose 114 Calculated Osmolal ity 286 Calcium 6.9 L Phosphorus 1.6 L Magnesium 1.2 L 1.3 L Total Bilirubin 0.3 AST 24 ALT 28 Alkaline Phosphata se 66 Total Protein 5.7 L Albumin 2.9 L Globulin 2.8 Blood Type Rho(D) Type Antibody Screen Crossmatch 01/04/21 01/04/21 19:00 10:18 WBC 14.2 H RBC 3.65 L Hgb 9.1 L Hct 29.7 L MCV 81.4 MCH 24.9 L MCHC 30.6 RDW 20.1 H Plt Count 194 MPV 10.9 H Neut % (Auto) 76.6 Lymph % (Auto) 10.6 [place] % (Auto) 7.2 Eos % (Auto) 4.4 Baso % (Auto) 0.5 Neut # (Auto) 10.90 H Lymph # (Auto) 1.5 [place] # (Auto) 1.0 H Eos # (Auto) 0.6 Baso # (Auto) 0.1 Nucleated RBC % (a uto) 0 Nucleated RBCs # 0.0 Sodium Potassium Chloride Carbon Dioxide Anion Gap BUN Creatinine GFR Calculation Glucose Calculated Osmolal ity Calcium Phosphorus Magnesium Total Bilirubin AST ALT Alkaline Phosphata se Total Protein Albumin Globulin Blood Type A Positive Rho(D) Type Positive / 4+ Antibody Screen Negative Crossmatch See Detail Vitals: Last Vital Signs Temp 98.4 F 01/05/21 11:45 Pulse 108 H 01/05/21 11:45 Resp 17 01/05/21 11:45 BP 136/85 01/05/21 11:45 Pulse Ox 97 01/05/21 11:45 Discharge Plan Discharge Patient Disposition: Home Condition: Stable Prescriptions: New diphenoxylate-atropine 2.5-0.025 mg Tablet 1 tab PO Q6H PRN (Reason: Diarrhea) Qty: 7 RF: 0 cholestyramine (with sugar) 4 gram Powder In Packet 4 g PO TIDAC 7 Days RF: 0 Continued potassium chloride 20 mEq tablet extended release 20 meq PO DAILY 30 Days Qty: 30 RF: 5 isosorbide mononitrate 30 mg tablet extended release 24 hr 30 mg PO QAM Qty: 90 RF: 3 metoclopramide HCl [Reglan] 10 mg tablet 10 mg PO TID PRN (Reason: nausea and vomiting) Qty: 30 RF: 0 pantoprazole 40 mg tablet,delayed release (DR/EC) 40 mg PO DAILY Qty: 30 RF: 2 tamsulosin 0.4 mg capsule 0.4 mg PO DAILY RF: 0 trazodone 100 mg tablet 100 mg PO BEDTIME PRN (Reason: insomnia) RF: 0 duloxetine 30 mg capsule,delayed release(DR/EC) 30 - 90 mg PO DAILY RF: 0 hydrocodone-acetaminophen 5-325 mg tablet 1 tab PO Q6H PRN (Reason: pain) Qty: 20 RF: 0 ondansetron HCl [Zofran] 4 mg tablet 4 mg PO Q6H PRN (Reason: nausea and vomiting) Qty: 20 RF: 0 sennosides-docusate sodium [Senna with Docusate Sodium] 8.6-50 mg tablet 1 tab-cap PO BID Qty: 30 RF: 0 Held aspirin 325 mg tablet 325 mg PO DAILY RF: 0 Hold Instructions: Resume on 01/19/21. furosemide [Lasix] 20 mg tablet 20 mg PO QAM Qty: 90 RF: 0 Hold Instructions: Resume on 01/12/21. carvedilol 12.5 mg tablet 12.5 mg PO BID Qty: 180 RF: 4 Hold Instructions: Resume on 01/12/21. enalapril maleate 20 mg tablet 40 mg PO DAILY Qty: 60 RF: 3 Hold Instructions: Resume on 01/12/21. amlodipine 10 mg tablet 5 mg PO DAILY Qty: 90 RF: 3 Hold Instructions: Resume on 01/12/21. Discharge Orders: Discharge Order (Routine); Ordered 01/05/21 Ordered By: Jose Juan Knox Referrals: [facility] [Outside] Alvaro Alvarado MD [Physician] - 2 weeks Solomon Ludwig MD [Staff Physician] - 7-10 days Discharge Diet: Regular Discharge Activity: Resume usual activity Patient Instructions: Diphenoxylate/Atropine (By mouth), Opioid Safety Discharge Attestations Time Spent in Discharge Care*: less than 30 min Specific Discharge Activities: educating patient, educating and/or supporting family/caregiver, discussing with pcp/other providers, discussing with lead case manager/social workers/dc planners, documenting/other paperwork and evaluating patient/reviewing data Status at Discharge: Cognitive status at discharge: cognitively intact , Behavioral status at discharge: cooperative , Functional status at discharge: independent ambulation Overall status at discharge: patient is back to baseline Quality Metrics Clinical Quality Measures During this hospital stay, did patient experience: None Coding Level of Care Code Acute Chg FW DC note Diagnoses Acute renal failure N17.9 Acute renal failure type: unspecified Metabolic acidosis E87.2 Acute hyperkalemia E87.5 S/P right hemicolectomy Z90.49 CAD (coronary artery disease) I25.10 Pulmonary hypertension I27.20 GI bleed K92.2
[2021-01-05 14:00] VITALS: PULSE 111
--- NOTE | 2021-01-05 14:06 | P.PN_ITS ---
Subjective Subjective: Interval history: Patient feels ready to be discharged, no nausea or vomiting, stools are getting thicker Vitals/I&O/Wt Last Vital Signs Temp 98.4 F 01/05/21 11:45 Pulse 108 H 01/05/21 11:45 Resp 17 01/05/21 11:45 BP 136/85 01/05/21 11:45 Pulse Ox 97 01/05/21 11:45 01/04/21 01/05/21 01/05/21 22:59 06:59 14:59 Intake Total 2275 / 2925 880 / 880 Balance 2275 / 2425 880 / 880 Weight last 48 hrs Weight 196 lb 8 oz Weight 191 lb 1.6 oz Physical Exam Narrative: EXAM NARRATIVE: Abdomen: Soft, nontender, not distended incisions healing well Urinary Catheter Management^: [place]: Cath Placed During This Visit: yes, but has since been removed by the nurse Reason for Continuing Indwelling Catheter: Accurate Measurement of Urinary Output in Critically Ill Patients Urinary Catheter Date of Insertion: 12/30/20 Urinary Catheter Time of Insertion: 04:03 Date Urinary Catheter Removed: 01/04/21 Time Urinary Catheter Discontinued: 10:30 Data : 01/05/21 05:17 01/05/21 05:17 A&P Assessment and plan (1) S/P right hemicolectomy: 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 His abdominal pain is minimal, still continues to have loose stools in spite of cholestyramine 4 g 3 times a day. Added Lomotil 1 tab every 6 hours C. difficile: Negative DC to senior care today Status: Acute Attestations Medical Necessity Statement*: DC to senior care today Coding Level of Care Code Acute Chief Clinical Officer for Kathyg Fwd Diagnoses S/P right hemicolectomy Z90.49
[2021-01-05 16:02] VITALS: BP 136/85; PULSE 111; RESP 17; TEMP 36.9; O2SAT 97
== END 2021-01-05 16:03 | disposition skilled nursing facility (03) | DRG 683 ==
LOC: ER 19:39 → ICU 23:38 → CSU 01-03 14:56 → MEDSURG 01-04 15:32
PROVIDERS: Family Medicine; Internal Medicine Nephrology; Surgery; Admitting Provider Hospitalist; Emergency Provider Emergency Medicine; PCP Internal Medicine; Visit Provider Internal Medicine
DX: N17.9 Acute kidney failure, unspecified (principal); C18.3 Malignant neoplasm of hepatic flexure; E87.2 Acidosis; N39.0 Urinary tract infection, site not specified; K56.609 Unspecified intestinal obstruction, unspecified as to partial versus complete obstruction; J90 Pleural effusion, not elsewhere classified; K92.1 Melena; I10 Essential (primary) hypertension; E78.2 Mixed hyperlipidemia; N52.9 Male erectile dysfunction, unspecified; I27.20 Pulmonary hypertension, unspecified; I25.10 Atherosclerotic heart disease of native coronary artery without angina pectoris; Z90.49 Acquired absence of other specified parts of digestive tract; M10.9 Gout, unspecified; Z98.1 Arthrodesis status; E78.00 Pure hypercholesterolemia, unspecified; Z87.442 Personal history of urinary calculi; E87.5 Hyperkalemia; Z79.891 Long term (current) use of opiate analgesic; E83.42 Hypomagnesemia; R19.7 Diarrhea, unspecified; E86.0 Dehydration
CPT/HCPCS: 36415; 36430; 36569; 36591; 36592; 51702; 70450; 71045; 74176; 76770; 80048; 80053; 81001; 82044; 82274; 82436; 82550; 82570; 83605; 83630; 83690; 83735; 83880; 83935; 84100; 84133; 84145; 84300; 84443; 84540; 84550; 85014; 85018; 85025; 85610; 85730; 85999; 86140; 86850; 86900; 86920; 86927; 87086; 87493; 87506; 93005; 94640; 96361; 96372; 96374; 96375; 97110; 97116; 97161; 97530; 99285; C9113; J0610; J1644; J2405; J2543; J2597; J3475; J7030; J7611; J7799; P9016; P9017; Q3014; Q9967

== ENCOUNTER 2021-01-14 12:05 | Outpatient (CLI) | payer MEDICARE, OTHER, SELFPAY ==
[2021-01-14] MEDS: alteplase 1 mg/mL SDV 2 mL 2 MG INTRACATH (14:45)
[2021-01-14 16:17] LABS: Basophils # 0.1 10^3/uL (0.0-0.1); Basophils % 1.3 %; Eosinophils # 0.3 10^3/uL (0.0-0.8); Eosinophils % 5.1 %; Hematocrit 30.8 % (42.0-52.0); Lymphocytes # 1.4 10^3/uL (0.8-4.8); Lymphocytes % 22.8 %; Mean Corpuscular HGB Conc 29.2 g/dL (30.0-36.0); Mean Corpuscular Hemoglobin 25.1 pg (28.0-34.0); Monocytes # 0.5 10^3/uL (0.2-0.9); Monocytes % 7.2 %; Neutrophils # 3.94 10^3/uL (1.8-7.7); Neutrophils % 63.3 %; Nucleated Red Blood Cells % 0 %; Platelet Count 314 10^3/cmm (130-400); Red Blood Count 3.58 10^6/uL (4.1-5.3); Red Cell Distribution Width 22.6 % (12.1-15.1); White Blood Count 6.2 10^3/uL (4.0-10.0)
[2021-01-14 16:45] LABS: Alanine Aminotransferase 17 U/L (0-41); Albumin Level 3.3 g/dL (3.5-5.2); Alkaline Phosphatase 107 IU/L (40-130); Aspartate Amino Transferase 18 U/L (0-40); Blood Urea Nitrogen 14 mg/dL (8-23); Calcium 8.1 mg/dL (8.5-10.5); Carbon Dioxide 17 mmol/L (22-29); Chloride 112 mmol/L (98-107); Ferritin 236 ng/mL (30-400); Globulin 2.9 g/dL (1.3-4.6); Glomerular Filtration Rate 60.2 mL/min (90-130); Glucose 78 mg/dL (65-115); Iron 33 ug/dL (59-158); Osmolality Calculated 285 mOsm/kg (285-295); Percent Saturation 11.5 % (20-50); Sodium 138 mmol/L (136-145); Total Bilirubin 0.2 mg/dL (0.15-1.2); Total Iron Binding Capacity 286 mcg/dl; Total Protein 6.2 g/dL (6.6-8.7); Unsaturated Iron Binding 253 ug/dL (112-347)
[2021-01-14 16:47] LABS: Anion Gap 14.5 (5-19); Potassium 5.5 mmol/L (3.5-5.1)
[2021-01-14 17:08] LABS: Carcinoembryonic Antigen 3.7 ng/mL (0.0-4.7)
--- NOTE | 2021-01-14 20:21 | ONC CON_ITS ---
Dr. Barker New Patient Note Patient: Daniel Patel Unit #: [id number]: 1950 Dicatated By: Evelio Barker M.D.Date of Visit: Jan 14, 2021 Onc MED New Patient/Consult Referring Physician: Dr. IRVIN ALVARADO M.D. Chief Complaint: Colon cancer. 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 He had presented with Dr. Haddad with iron deficiency anemia. His colonoscopy on 12/07/2020 showed a large size, partially obstructing, malignant appearing mass at 70 cm. Biopsy showed well differentiated adenocarcinoma. The tumor showed intact expression of mismatch repair proteins. Interestingly, he had a negative colonoscopy in 2018. His staging contrast-enhanced CT of the abdomen pelvis showed a long segment mass in the right hepatic flexure with significant narrowing of the lumen and with adjacent small lymph nodes, consistent with neoplasm. A few scattered areas of decreased attenuation in the liver were felt to be nonspecific. There was evidence of hepatomegaly and hepatic steatosis. Baseline CEA was 2.8 ng/mL. He was referred to Dr. Alvarado and on 12/17/2020 he underwent laparoscopic extended right hemicolectomy with extracorporeal ileocolic stapled [id number]-[id number] anastomosis. He tolerated the procedure well and he was discharged on 12/19/2020. His subsequent clinical course was complicated by nausea/vomiting, abdominal pain, and diarrhea. On 12/30/2019 when he was admitted to the hospital with acute renal failure, creatinine 14 mg/dL. His CT abdomen/pelvis at that time showed small bowel distention which was concerning for small bowel obstruction, but that did improve with conservative management. His renal function improved with IV hydration and supportive measures. [facility]. He is seen now in regard to the colon cancer. He has been showing gradual recovery following the hospitalization earlier this month. [facility] was able to be [facility] from the [facility] last week. He is still feeling pretty weak generally, but he is ambulatory and he is doing physical therapy. ECOG score is 2. His appetite is fine. His weight is down about 15 pounds from normal. He does not have fever or night sweats. He is having some mild exertional dyspnea. He has occasional cough associated with sinus drainage. He does not complain of chest pain. His bowels are getting back to normal now. He has no other GI complaints. Bladder function has been okay. He has some joint pain, mainly in the shoulders. He very seldom has headache. He has been having some issues with his balance. He sometimes has numbness in his arm/hands, especially when he is driving. He has no other focal neurologic symptoms. Past Medical History: His medical history includes benign prostatic hypertrophy, degenerative arthritis, degenerative disease of the spine, gout, hyperlipidemia, hypertension, and nephrothiliasis. Past Surgical History: He underwent laparoscopic extended right hemicolectomy with extracorporeal ileocolic stapled [id number] anastomosis on 12/17/2020. His other surgical/procedural history includes bilateral cataract excisions, cardiac catheterization, carpal tunnel repair, cervical laminectomy/fusion, cholecystectomy, lithotripsy, lumbar hemilaminectomy, and multiple inguinal hernia repairs. Medications: amLODIPine Besylate 1 (10 mg) Tablet Oral daily, Aspirin 1 (325 mg) Tablet Oral daily, Carvedilol 1 (12.5 mg) Tablet Oral b.i.d., DULoxetine HCl 3 Capsule (of 30 mg) Capsule Delayed Release Particles Oral daily, Enalapril Maleate 1 (20 mg) Tablet Oral daily, HYDROcodone-Acetaminophen 1 (5-325 mg) Tablet Oral q 6 hours PRN, Isosorbide Mononitrate ER 1 (30 mg) Tablet SR 24 HR Oral daily, Lasix 1 (20 mg) Tablet Oral daily, Metoclopramide HCl 1 (10 mg) Tablet Oral t.i.d., Pantoprazole Sodium 1 (40 mg) Tablet, enteric coated Oral daily, Sennosides-Docusate Sodium 1 (8.6-50 mg) Capsule Oral b.i.d., Tamsulosin HCl 1 (0.4 mg) Capsule Oral daily, traZODone HCl 1 (100 mg) Tablet Oral at bedtime, Zofran 1 (4 mg) Tablet Oral q 4 hours PRN Allergies: No Known Allergies. Social History: Mr. Patel is . He is retired from the [employer]. He is a non-smoker, but he does have a long history of chewing tobacco daily. He has occasional alcohol use. Family History: Father with emphysema at age 69. Mother with pancreatitis at age 94. A brother of stomach cancer at age 41. Two sisters are in good health. Review Of Symptoms: Constitutional - He is still feeling pretty weak, but he has ambulatory. His appetite is fine. His weight is down about 15 pounds from normal. He does not have fever or night sweats. ECOG score is 2, Eyes - No change in vision, ENMT - No hearing loss or tinnitus. He has some allergy related sinus symptoms. No mouth sores. No sore throat or difficulty swallowing, Hematologic/Lymphatic - No abnormal bruising, Respiratory - He has shortness of breath with activity. He has occasional cough associated with sinus drainage. No pleuritic pain or hemoptysis, Cardiovascular - No angina pain. No palpitations, Gastrointestinal - No nausea or vomiting. No heartburn or acid reflux. He was having diarrhea, but that is getting better now. He has not been aware of any blood in the stool or black stools, Genitourinary (M) - No dysuria or hematuria. He has some urinary frequency. No urgency or incontinence, Musculoskeletal - He has some joint pain, mainly in the shoulders. He has had neck and back surgery, Integumentary - No skin rash or other skin changes, Neurologic - He very seldom has headache. He has had some difficulty with balance. He sometimes has numbness in his arms and hands, especially when he is driving. No other focal neurologic symptoms, Psychiatric - No anxiety or depression. He has insomnia. Vital Signs: Performed on Jan 14, 2021 13:11: 3, 0, 27.72, 2.06 sq.m, 70 in, 98 %, 77 /min, 18 /min, 105/65 mm(hg), 97.8 F (LOW), and 193.2 lbs (HIGH). Physical Examination: Constitutional - He appears somewhat weak generally, Eyes - Sclerae nonicteric. Conjunctivae clear, ENMT - His lower teeth are in poor repair. No other lesions noted in the oral cavity, Neck - No mass or thyromegaly, Hematologic/Lymphatic - No cervical, clavicular, or axillary adenopathy, Respiratory - Lungs are clear with good air movement bilaterally, Cardiovascular - Heart rhythm is regular. There is no murmur, gallop, or rub noted, Abdomen - Abdomen feels somewhat firm. Incision appears well-healed. Liver and spleen are not enlarged. There is no abdominal mass or ascites noted and there is no inguinal adenopathy, Back/Spine - No spine or CVA tenderness noted, Extremities - Slight edema. Dorsalis pedis pulses are palpable bilaterally, Integumentary - No rashes. No suspicious skin lesions noted, Neurologic - No focal neurologic deficits noted. Problem List: 1. Grade 2 invasive adenocarcinoma involving the hepatic flexure of the colon, stage IIA (T3, N0, M0), MSI stable. He underwent laparoscopic extended right hemicolectomy on 12/17/2020. 2. He was hospitalized with acute renal failure on 12/29/2020, improved with IV hydration and supportive measures. 3. Iron deficiency anemia. 4. He has a history of hypertension, currently with low blood pressure. 5. Hyperlipidemia. 6. Degenerative arthritis/degenerative disease of the spine. 7. History of gout. 8. History of nephrolithiasis. 9. Benign prostatic hypertrophy. Problems Addressed with this Encounter and Plan: 1. 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 He underwent laparoscopic extended right hemicolectomy on 12/17/2020. His postoperative course was complicated by nausea/vomiting and diarrhea, requiring hospital admission for acute renal failure. The renal failure resolved with IV hydration/supportive measures. He has now showing gradual recovery. In the absence of any evidence of high risk features, there appears to be no indication for adjuvant chemotherapy, particularly in view of his complicated postoperative course. He does need to complete his staging with a chest CT. This will be ordered as a noncontrast study. He will otherwise just be followed expectantly for the colon cancer, I will tentatively plan to see him again in months. 2. He presented with iron deficiency anemia. This is presumed to be due to GI blood loss. I will now repeat his CBC along with a comprehensive metabolic profile and serum iron studies. If the iron deficiency is not correcting, he will be given parenteral iron replacement with Injectafer, as he will be at high risk for further GI complications if he is given oral iron supplementation. 3. He has a history of hypertension, currently with low blood pressure. I have discussed this with Dr. Haddad, and his medications will be adjusted pending verification of which medications he is actually taking now. Signed By: Evelio Barker M.D. <<Signature on File>>
== END 2021-01-14 12:06 | disposition home or self-care (01) ==
PROVIDERS: PCP Internal Medicine; Visit Provider Internal Medicine Medical Oncology
DX: Z08 Encounter for follow-up examination after completed treatment for malignant neoplasm (principal); Z85.038 Personal history of other malignant neoplasm of large intestine; D50.9 Iron deficiency anemia, unspecified; N17.9 Acute kidney failure, unspecified; I10 Essential (primary) hypertension; E78.5 Hyperlipidemia, unspecified; M47.9 Spondylosis, unspecified; M19.90 Unspecified osteoarthritis, unspecified site; M10.9 Gout, unspecified; N20.0 Calculus of kidney; N40.0 Benign prostatic hyperplasia without lower urinary tract symptoms; Z79.899 Other long term (current) drug therapy
CPT/HCPCS: 36415; 36593; 80053; 82378; 82728; 83540; 83550; 85025; 96374; 99205; J2997

== ENCOUNTER 2021-01-18 09:07 | Outpatient (CLI) | payer MEDICARE, OTHER, SELFPAY ==
--- NOTE | 2021-01-18 | CT_ITS ---
WS: [id number] CT CHEST TECHNIQUE: Noncontrast CT of the chest with coronal and sagittal reformatted images. CLINICAL INFORMATION: HISTORY OF COLOR CANCER COMPARISON: CT 3 20,018 DLP: All CT scans at [facility] use at least one of these dose optimization techniques: automat ed exposure control; mA and/or kV adjustment per patient size (includes targeted exams where dose is matched to clinical indication); or iterative reconstruction. FINDINGS: Moderate right pleural effusion with patchy infiltrates and atelectasis in right lower lobe consisten t with pneumonia. Small left pleural effusion with slight left basilar atelectasis. Additional hazy g round glass infiltrates in the right upper lobe along the fissure. Ovoid nodular density along the ri ght fissure measuring 8.4 mm. Additional nodular density along the left lower lobe subpleural in loca tion measuring 9.2 mm with some adjacent infiltrates. Left upper lobe is well aerated. Normal caliber thoracic aorta. Mild aortic calcification. No pericardial effusion. Adrenal glands are normal. Cholecystectomy clips. Low-attenuation lesion right hepatic lobe likely hepatic cyst. Spleni c granulomas. Small esophageal hiatal hernia. Upper abdominal aorta is normal. Partially visualized p ostoperative changes at the hepatic flexure. Mild thoracic kyphosis with hypertrophic changes in the mid thoracic spine. Chronic left rib fractures. CT/CT chest wo con [id number] IMPRESSION: 1. Moderate right and small left pleural effusions. Patchy infiltrates in righ t lower lobe consistent with pneumonia. Additional hazy groundglass infiltrates in the right upper lobe at the fissure. 2. Patchy nodular densities along the right fissure measuring 8.4 mm and subpl eural left lower lobe measuring 9.2 mm. These may be inflammatory but nonspecif ic. Recommend 3 month follow-up. 3. No mediastinal or hilar lymphadenopathy. No axillary lymphadenopathy. 4. Partially visualized postoperative changes right hemicolectomy and cholecys tectomy. 5. Small esophageal hiatal hernia.
== END 2021-01-18 09:08 | disposition home or self-care (01) ==
PROVIDERS: PCP Internal Medicine; Visit Provider Internal Medicine Medical Oncology
DX: C18.3 Malignant neoplasm of hepatic flexure (principal); K44.9 Diaphragmatic hernia without obstruction or gangrene; J90 Pleural effusion, not elsewhere classified; R91.8 Other nonspecific abnormal finding of lung field
CPT/HCPCS: 71250

== ENCOUNTER 2021-04-23 12:41 | Outpatient (CLI) | payer MEDICARE, OTHER, SELFPAY ==
--- NOTE | 2021-04-23 13:00 | CT_ITS ---
WS: [id number] CT CHEST TECHNIQUE: Contrast enhanced CT of the chest with coronal and sagittal reformatted images. CLINICAL INFORMATION: C18.9 - Malignant neoplasm of colon, unspecified COMPARISON: January 18, 2021 DLP: 916.[address] scans at [facility] use at least one of these dose optimization techniques: automated e xposure control; mA and/or kV adjustment per patient size (includes targeted exams where dose is matc hed to clinical indication); or iterative reconstruction. FINDINGS: Previously described nodular density along the right fissure and subpleural left lower lobe have resolved compared to previous and likely infectious or inflammatory. Bibasilar atelectasis. Pre viously described pleural effusions have resolved. Calcified granuloma right lower lobe. Bibasilar at electasis. Hypertrophic changes thoracic spine. Mild thoracic kyphosis. Chronic left rib fractures with callus f ormation. No mediastinal or hilar lymphadenopathy. No axillary lymphadenopathy. Prior postoperative changes right hemicolectomy and cholecystectomy. Small esophageal hiatal hernia. Diffuse fatty infiltration liver. Cholecystectomy. Small right hepatic cyst. CT/CT chest w con* [id number] IMPRESSION: 1. Previously described opacities along the right fissure and subpleural left lower lobe have resolved. 2. No new suspicious pulmonary parenchymal opacities. 3. Pleural effusions have resolved with residual slight bibasilar atelectasis. 4. No mediastinal or hilar lymphadenopathy.
[2021-04-23 13:04] LABS: Blood Urea Nitrogen 8 mg/dL (8-23); Glomerular Filtration Rate 112.1 mL/min (90-130)
[2021-04-23] MEDS: iohexol 300 mg/mL 100 mL Btl IV (13:12)
== END 2021-04-23 12:42 | disposition home or self-care (01) ==
PROVIDERS: PCP Internal Medicine; Visit Provider Surgery
DX: C18.9 Malignant neoplasm of colon, unspecified (principal)
CPT/HCPCS: 71260; 82565; 84520; Q9967

== ENCOUNTER → 2021-04-29 14:59 | Outpatient (BNVA) | payer MEDICARE, OTHER, SELFPAY | PROVIDERS: PCP Internal Medicine; Visit Provider Internal Medicine | DX: C18.9 Malignant neoplasm of colon, unspecified (principal); I25.10 Atherosclerotic heart disease of native coronary artery without angina pectoris; Z23 Encounter for immunization | CPT/HCPCS: 80053 ==

== ENCOUNTER → 2021-04-30 12:50 | Outpatient (BNVA) | payer MEDICARE, OTHER, SELFPAY | PROVIDERS: PCP Internal Medicine; Visit Provider Urology | DX: N20.0 Calculus of kidney (principal); R35.89 Other polyuria; Z12.5 Encounter for screening for malignant neoplasm of prostate | CPT/HCPCS: 81003; 84153 ==

== ENCOUNTER 2021-09-03 15:14 | Observation (INO) | payer MEDICARE, OTHER, SELFPAY ==
--- NOTE | 2021-09-03 15:30 | ECG_ITS ---
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 Measurements Intervals [place] Rate: 59 P: 85 PA: 218 QRS: -2 QRSD: 159 T: -2 QT: 491 QTc: 488 Interpretive Statements SINUS BRADYCARDIA WITH FIRST DEGREE AV BLOCK RIGHT BUNDLE BRANCH BLOCK [120+ ms QRS DURATION, UPRIGHT V1, 40+ ms S IN I/aVL/V4/V5/V6] Compared to ECG 12/29/2020 19:41:39 First degree AV block now present Right bundle-branch block now present Sinus rhythm no longer present Myocardial infarct finding no longer present Electronically Signed On 09-03-2021 17:04:56 COMMUNITY SPECIALIST by Jesus Rangel M.D. [id number]
--- NOTE | 2021-09-03 15:30 | XR_ITS ---
WS: [id number] PORTABLE CHEST HISTORY: dyspnea/cough COMPARISON: 12/29/2020 Lung volumes are decreased. Mild elevation of the RIGHT hemidiaphragm. No pneumonia. No pleural effus ion or pneumothorax. Cardiac size: Mildly enlarged cardiac silhouette. Mediastinum/Aorta: Mildly ectatic aorta. Prior cervical fusion hardware noted. Prior cholecystectomy. XR/XR chest 1V portable [id number] IMPRESSION: Lung volumes are decreased. No pneumonia.
--- NOTE | 2021-09-03 15:39 | W.ED.CHESTPA ---
HPI - Chest Pain General: Chief Complaint: ER Hold Stated Complaint: SYNCOPE, CHEST PAIN Time Seen by Provider: 09/03/21 15:30 History of Present Illness: 62-year-old male presents to the emergency room with complaints of chest discomfort. He was found evidently down in his home he had gotten chest discomfort ultimately collapsed. He still having chest pain on the left side is not radiating to his arms or his neck. He was diaphoretic and dyspneic. Pain is reproducible palpation across his Left upper chest. he has a known history of coronary artery disease. MD complaint: chest pain Pertinent past history: coronary artery disease Timing of current episode: episodic Onset: during rest Pain location: substernal and left chest Pain radiation: none Severity: moderate Quality: tightness, aching and heaviness Relieving factors: nothing Exacerbating factors: nothing Associated symptoms: Reports diaphoresis and dyspnea; Deny abdominal pain, fever(s), leg edema, nausea, palpitations, sense of impending doom, syncope or vomiting Treatment prior to arrival: none Review of Systems Const: Reports: diaphoresis; Denies: fever(s) ENMT: Denies: throat pain, ear or mastoid pain, nasal discharge or nasal congestion Card: Denies: palpitations or syncope Resp: Reports: dyspnea GI: Denies: abdominal pain, nausea or vomiting : Denies: flank pain, dysuria, urinary frequency or urinary urgency Skin/Breast: Denies: rash or pruritus PFSH ED PFSH: Medical History Acute renal failure Atherosclerosis of coronary artery of [place] heart without angina pectoris Had Cardiac cath in 2018- mild CAD Bilateral renal stones CAD (coronary artery disease) Cardiac ischemia Chest pain Colon cancer T3 N0 M0 hepatic flexure 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 Erectile dysfunction Essential hypertension Gout Lumbar disc disease with radiculopathy Mixed hyperlipidemia Nephrolithiasis Prostate cancer screening Pulmonary hypertension Pure hypercholesterolemia Syncope and collapse Surgical History H/O carpal tunnel repair H/O esophagogastroduodenoscopy H/O lithotripsy History of cataract surgery History of fusion of cervical spine C4-C7 ACDFF, with C6 corpectomy; 2002; [facility] C3-C4 ACDFF; 01/28/2018; [facility] History of lumbar surgery Left L4-L5, L5-S1 hemilaminotomy/discectomy/foraminotomy; 04/07/2019; [facility]. Right L3-L4 and reexploration left L4-L5 laminotomy/discectomy, [place]/03/2019, [facility] [place] Hx of cardiac catheterization Hx of cholecystectomy S/P bilateral inguinal hernia repair S/P right hemicolectomy (12/17/20) Status post colonoscopy Family History Brother Cancer Stomach Father Emphysema lung Lung disease Cancer Mother Hypertension Cancer Diabetes Social History Second hand smoke exposure: No Alcohol intake: current Alcohol intake frequency: few times a week Lives independently: Yes Marital status: Current occupational status: retired History of recent travel: No Physical Exam Const: COMMON NORMALS: no acute distress GENERAL APPEARANCE: cooperative and comfortable ORIENTATION/CONSCIOUSNESS: Yes oriented to person, Yes oriented to place and Yes oriented to time HENMT: COMMON NORMALS: normocephalic, atraumatic and hearing grossly normal bilaterally HEAD & SCALP: normocephalic and atraumatic Neck/C-Spine: COMMON NORMALS: no JVD Resp: COMMON NORMALS: normal respiratory effort, No retractions, No use of accessory muscles and clear to auscultation bilaterally AUSCULTATION: clear to auscultation bilaterally Cardio: COMMON NORMALS: no JVD, regular rate, regular rhythm and No murmurs present (Cardio) RATE: regular rate RHYTHM: regular rhythm GI: COMMON NORMALS: Soft to palpation and No hepatosplenomegaly present AUSCULTATION: Yes normoactive bowel sounds PALPATION: Yes Soft to palpation, No Tenderness to palpation present (GI), No Guarding due to palpation present (GI) and Yes No hepatosplenomegaly present Extremity: COMMON NORMALS: normal to inspection, capillary refill normal, no clubbing, cyanosis or edema, no calf tenderness and no pedal edema Neuro: SENSORIUM/ORIENTATION: Yes oriented to person, Yes oriented to place and Yes oriented to time Skin: COMMON NORMALS: no rashes or lesions noted GENERAL SKIN EXAM: no rashes or lesions noted Course Vital Signs: Vital signs: Vital Signs Temperature 99.1 F 09/05/21 04:00 Pulse Rate 94 09/05/21 09:36 Respiratory Rate 17 09/05/21 04:00 Blood Pressure 120/78 09/05/21 04:00 Pulse Oximetry 92 09/05/21 04:00 MDM - Chest Pain Medical Decision Making Chest pain symptoms are concerning especially given his age. We will go ahead and admit him discussed with hospitalist complete rule out and further evaluation for his syncope. Patient was given aspirin in route is asymptomatic at this time. EKGs reviewed no acute changes noted. Medical Records I reviewed the patient's medical records. Lab Data I reviewed the patient's lab results. : 09/05/21 05:09 09/05/21 05:09 Radiology Impressions Chest X-Ray 09/03/21 15:30 IMPRESSION: Lung volumes are decreased. No pneumonia. Head CT 09/03/21 18:23 IMPRESSION: 1. Mild bilateral ethmoid sinus disease. 2. No acute intracranial findings. Chest CTA 09/04/21 14:45 IMPRESSION: 1. No pulmonary embolism. 2. Mild pulmonary hypertension. 3. No pneumonia. 4. Prior cholecystectomy. 5. Hepatic steatosis and hepatomegaly. 6. Acute nondisplaced LEFT fourth and fifth rib fractures. Laboratory Results WBC 6.5 10^3/uL (4.0-10.0) 09/04/21 01:21 RBC 4.63 10^6/uL (4.1-5.3) 09/04/21 01:21 Hgb 12.9 g/dL (11.7-16.6) 09/04/21 01:21 Hct 40.1 % (42.0-52.0) L 09/04/21 01:21 MCV 86.6 fl (80-94) 09/04/21 01:21 MCH 27.9 pg (28.0-34.0) L 09/04/21 01:21 MCHC 32.2 g/dL (30.0-36.0) 09/04/21 01:21 RDW 16.1 % (12.1-15.1) H 09/04/21 01:21 Plt Count 136 10^3/cmm (130-400) 09/04/21 01:21 MPV 9.3 fL (7.4-10.4) 09/04/21 01:21 Neut % (Auto) 69.2 % 09/04/21 01:21 Lymph % (Auto) 18.6 % 09/04/21 01:21 [place] % (Auto) 8.6 % 09/04/21 01:21 Eos % (Auto) 2.6 % 09/04/21 01:21 Baso % (Auto) 0.5 % 09/04/21 01:21 Neut # (Auto) 4.52 10^3/uL (1.8-7.7) 09/04/21 01:21 Lymph # (Auto) 1.2 10^3/uL (0.8-4.8) 09/04/21 01:21 [place] # (Auto) 0.6 10^3/uL (0.2-0.9) 09/04/21 01:21 Eos # (Auto) 0.2 10^3/uL (0.0-0.8) 09/04/21 01:21 Baso # (Auto) 0.0 10^3/uL (0.0-0.1) 09/04/21 01:21 Nucleated RBC % (auto) 0 % 09/04/21 01:21 Nucleated RBCs # 0.0 /100WBC 09/04/21 01:21 D-Dimer 1.81 ug/mIFEU (0-0.59) H 09/03/21 21:55 Sodium 139 mmol/L (136-145) 09/04/21 01:21 Potassium 2.7 mmol/L (3.5-5.1) L* 09/04/21 01:21 Chloride 97 mmol/L (98-107) L 09/04/21 01:21 Carbon Dioxide 23 mmol/L (22-29) 09/04/21 01:21 Anion Gap 21.7 (5-19) H 09/04/21 01:21 BUN 9 mg/dL (8-23) 09/04/21 01:21 Creatinine 0.7 mg/dL (0.7-1.2) 09/04/21 01:21 GFR Calculation 112.1 mL/min (90-130) 09/04/21 01:21 Glucose 85 mg/dL (65-115) 09/04/21 01:21 Calculated Osmolality 286 mOsm/kg (285-295) 09/04/21 01:21 Lactic Acid 2.8 mmol/L (0.5-2.2) H 09/03/21 22:01 Lactic Acid (Sepsis) 2.6 mmol/L (0.5-2.2) H 09/04/21 01:21 Calcium 9.7 mg/dL (8.5-10.5) 09/04/21 01:21 Phosphorus 3.0 mg/dL (2.5-4.5) 09/03/21 16:15 Magnesium 1.6 mg/dL (1.7-2.3) L 09/03/21 16:15 Total Bilirubin 0.5 mg/dL (0.15-1.2) 09/04/21 01:21 AST 85 U/L (0-40) H 09/04/21 01:21 ALT 43 U/L (0-41) H 09/04/21 01:21 Alkaline Phosphatase 89 IU/L (40-130) 09/04/21 01:21 Creatine Kinase 540 U/L (39-308) H* 09/03/21 16:05 Troponin T Baseline 24 ng/L (0-15) H 09/03/21 16:05 Troponin T 120 Minute 19.64 ng/L (0-15) H 09/03/21 17:37 Delta Troponin T -4.36 ABS# (0-10) L 09/03/21 17:37 Troponin T Hi Sens 6Hr 20.60 ng/L (0-15) H 09/03/21 21:55 Troponin T Hi Sens 6Hr Delta -3.40 ng/L (0-12) L 09/03/21 21:55 NT-Pro-B Natriuret Pep 74 pg/mL (0-125) 09/03/21 16:15 Total Protein 7.3 g/dL (6.6-8.7) 09/04/21 01:21 Albumin 4.4 g/dL (3.5-5.2) 09/04/21 01:21 Globulin 2.9 g/dL (1.3-4.6) 09/04/21 01:21 Triglycerides 148 mg/dL (0-150) 09/03/21 16:15 Cholesterol 270 mg/dL (0-200) H 09/03/21 16:15 LDL Cholesterol, Calc 129 mg/dL (50-129) 09/03/21 16:15 HDL Cholesterol 111 mg/dL (60-100) H 09/03/21 16:15 LDL/HDL Ratio 1.16 RATIO (0.00-3.22) 09/03/21 16:15 Cholesterol/HDL Ratio 2.43 mg/dL (1.0-5.00) 09/03/21 16:15 Procalcitonin 0.10 ng/mL (0-0.5) 09/03/21 16:15 TSH 0.76 uIU/mL (0.27-4.20) 09/03/21 16:15 Prolactin 16.94 ng/mL (4.0-15.2) H 09/04/21 01:24 Urine Color Yellow (Yellow) 09/03/21 18:45 Urine Appearance Clear (CLEAR) 09/03/21 18:45 Urine pH 5 (5-7) 09/03/21 18:45 Ur Specific [place] 1.010 (1.005-1.030) 09/03/21 18:45 Urine Protein Trace (Negative) 09/03/21 18:45 Urine Glucose (UA) Norm (Normal) 09/03/21 18:45 Urine Ketones Negative (Negative) 09/03/21 18:45 Urine Blood 3+ (Negative) H 09/03/21 18:45 Urine Nitrate Negative (Negative) 09/03/21 18:45 Urine Bilirubin Neg (Negative) 09/03/21 18:45 Urine Urobilinogen Norm mg/dL (Negative) 09/03/21 18:45 Ur Leukocyte Esterase Negative (Negative) 09/03/21 18:45 Urine RBC 15-25 /hpf (0-2) H 09/03/21 18:45 Urine WBC 5-10 /hpf (0-5) H 09/03/21 18:45 Ur Squamous Epith Cells 0-4 /hpf (0-5) H 09/03/21 18:45 Amorphous Sediment Not Reportable 09/03/21 18:45 Urine Bacteria Trace /hpf (NONE) 09/03/21 18:45 Discharge Plan Discharge Patient Disposition: Admitted As Inpatient Admit Provider: Kady Amor Clinical Impression: Atypical chest pain, Syncope Condition: Stable Discharge Diet: Cardiac Discharge Activity: Increase activity as tolerated Coding Level of Care Code ED Cottage Supervisor for Chg Fwd
[2021-09-03 15:56] VITALS: BP 125/84; PULSE 77; RESP 16; TEMP 36.5; O2SAT 94; BMI 29.4
[2021-09-03 16:35] LABS: Basophils % 0.4 %; Eosinophils # 0.2 10^3/uL (0.0-0.8); Eosinophils % 1.9 %; Hematocrit 45.2 % (42.0-52.0); Hemoglobin 14.5 g/dL (11.7-16.6); Lymphocytes # 1.3 10^3/uL (0.8-4.8); Lymphocytes % 15.9 %; Mean Corpuscular HGB Conc 32.1 g/dL (30.0-36.0); Mean Corpuscular Hemoglobin 28.2 pg (28.0-34.0); Mean Corpuscular Volume 87.9 fl (80-94); Mean Platelet Volume 10.2 fL (7.4-10.4); Monocytes # 0.5 10^3/uL (0.2-0.9); Monocytes % 6.1 %; Neutrophils # 6.05 10^3/uL (1.8-7.7); Neutrophils % 75.2 %; Nucleated Red Blood Cells % 0 %; Platelet Count 154 10^3/cmm (130-400); Red Blood Count 5.14 10^6/uL (4.1-5.3)
[2021-09-03 17:02] LABS: Troponin(5th) Baseline 24 ng/L (0-15)
[2021-09-03 17:04] LABS: Alanine Aminotransferase 52 U/L (0-41); Albumin Level 5.3 g/dL (3.5-5.2); Alkaline Phosphatase 105 IU/L (40-130); Aspartate Amino Transferase 118 U/L (0-40); Blood Urea Nitrogen 9 mg/dL (8-23); Calcium 9.4 mg/dL (8.5-10.5); Carbon Dioxide 26 mmol/L (22-29); Chloride 95 mmol/L (98-107); Globulin 3.1 g/dL (1.3-4.6); Glomerular Filtration Rate 112.1 mL/min (90-130); Glucose 102 mg/dL (65-115); Osmolality Calculated 291 mOsm/kg (285-295); Sodium 141 mmol/L (136-145); Total Bilirubin 0.4 mg/dL (0.15-1.2); Total Protein 8.4 g/dL (6.6-8.7)
[2021-09-03 17:07] LABS: Creatine Phosphokinase 540 U/L (39-308)
[2021-09-03 17:08] LABS: Anion Gap 23.2 (5-19); Potassium 3.2 mmol/L (3.5-5.1)
--- NOTE | 2021-09-03 17:31 | ECG_ITS ---
[facility] Test Date: 2021-09-03 Pat Name: Daniel Patel Department: Room: Gender: Male Human Resources Professional: : 1950 Requested By: Jey Samuels Order Number: [id number] Juan MD: Jesus Rangel M.D. Measurements Intervals [place] Rate: 69 P: 53 AL: 193 QRS: -22 QRSD: 163 T: 60 QT: 364 QTc: 391 Interpretive Statements SINUS RHYTHM BORDERLINE LEFT AXIS DEVIATION [QRS AXIS < -20] RIGHT BUNDLE BRANCH BLOCK [120+ ms QRS DURATION, UPRIGHT V1, 40+ ms S IN I/aVL/V4/V5/V6] Compared to ECG 09/03/2021 16:05:08 Sinus bradycardia no longer present First degree AV block no longer present Electronically Signed On 09-03-2021 20:55:14 CORE STACKER by Jesus Rangel M.D. [id number]
[2021-09-03 17:32] VITALS: BP 125/84; PULSE 82; RESP 18; TEMP 36.8; O2SAT 94
--- NOTE | 2021-09-03 18:23 | CTR_ITS ---
PROCEDURE INFORMATION: Exam: CT Head Without Contrast Exam date and time: 09/03/2021 6:23 PM Age: 70 years old Clinical indication: Syncope and collapse; Additional info: Loc TECHNIQUE: Imaging protocol: Computed tomography of the head without contrast. Radiation optimization: All CT scans at this facility use at least one of these dose optimization techniques: automated exposure control; mA and/or kV adjustment per patient size (includes targeted exams where dose is matched to clinical indication); or iterative reconstruction. COMPARISON: CT head wo con* [id number] 12/29/2020 9:26 PM RADIATION DOSE METRICS: Total DLP (mGy-cm): 1029.38 FINDINGS: Brain: Mild to moderate cerebral atrophy and ischemic leukoencephalopathy. Cerebral ventricles: No ventriculomegaly. Paranasal sinuses: Mild bilateral ethmoid sinus disease. Mastoid air cells: Visualized mastoid air cells are well aerated. Vasculature: Moderate calcified intracranial atherosclerotic vessel disease. Bones/joints: Unremarkable. No acute fracture. Soft tissues: Unremarkable. CT/CT head wo con* [id number] IMPRESSION: 1. Mild bilateral ethmoid sinus disease. 2. No acute intracranial findings.
[2021-09-03 19:21] LABS: Urine Appearance Clear (CLEAR); Urine Color Yellow (Yellow); pH Urine 5 (5-7)
[2021-09-03 19:22] LABS: Add Urine Culture? Yes; Add Urine Microscopic? YES; Bacteria Urine TRACE /hpf; Bilirubin Urine Neg (Negative); Blood Urine 3+ (Negative); Glucose Urine UA Norm (Normal); Ketones Urine Negative (Negative); Leukocyte Esterase Urine Negative (Negative); Nitrate Urine Negative (Negative); Protein Urine Trace (Negative); RBC Urine 15-25 /hpf (0-2); Squamous Epithelial Cell Urine 0-4 /hpf (0-5); Urobilinogen Urine Norm (Negative)
[2021-09-03 19:27] LABS: Troponin 5 2HR 19.64 ng/L (0-15)
[2021-09-03 19:34] LABS: Troponin 5 2HR Delta -4.36 ABS# (0-10)
[2021-09-03 19:39] VITALS: BP 127/70; BP 128/75; BP 142/69; PULSE 57; PULSE 74; PULSE 84
[2021-09-03 19:55] VITALS: BP 142/69; PULSE 57; RESP 17; TEMP 37; O2SAT 93
--- NOTE | 2021-09-03 21:31 | P.HP_ITS ---
Providers/Chief Complaint Admitting Physician: Kady Amor MD Primary Care Provider: Eh Haddad MD Chief Complaint: SYNCOPE, CHEST PAIN History of Present Illness Daniel Patel is a 70 year old male with a past medical history of hypertension, hyperlipidemia, CAD, colon cancer adenocarcinoma status post hemicolectomy, pulmonary hypertension, history of renal failure, history of small bowel obstruction, history of nephrolithiasis who presents [facility] due to chest pain, syncope, collapse. 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 Today at roughly 2 PM, he was helping his , when he not iced that he start develop severe substernal chest pain, in the left side of his chest, nonradiating, no nausea, no vomiting, no diaphoresis, did feel a bit lightheaded, shortly thereafter, he passed out. His said that he passed out for roughly 2 minutes, no seizure-like episodes reported, no headache, no blurry vision, no strokelike symptoms no facial droop, no slurring of his words, no focal neurologic deficits. Immediately after he was a bit groggy, but still complaining of left-sided chest pain, he says that the chest pain abated, no visual deficits, no strokelike symptoms, no significant trauma. Here in the emergency room his potassium 3.2, CK 540, had transaminitis, troponin 24, EKG no acute T wave changes, CT of the head no acute stroke, hospitalist team was called for admission. Patient complains of some substernal chest pain, quite minimal right now, currently normal sinus rhythm, hemodynamically stable, Review of Systems Const: Denies: fever(s), chills, fatigue or malaise Eyes: Denies: change in vision or blurry vision ENMT: Denies: nasal congestion Card: Reports: chest pain, lightheadedness and syncope; Denies: palpitations, irregular heart rhythm, edema, pre-syncope, dyspnea on exertion or orthopnea Resp: Denies: dyspnea, productive cough, non-productive cough or wheezing GI: Denies: abdominal pain, nausea, vomiting, hematemesis, diarrhea, constipation, hematochezia or melena : Denies: flank pain, difficulty urinating, dysuria or urinary frequency Musc: Denies: neck pain or back pain Skin/Breast: Denies: rash Neuro: Denies: headache(s), numbness in extremities, weakness in extremities, sensory changes, lack of coordination, difficulty walking, frequent falls, dizziness, vertigo, confusion, Slurred speech present, difficulty communicating thoughts or seizure-like activity Psych: Denies: anxiety or depression Endo: Denies: polyuria or polydipsia Medications/Allergies Home Medications Medication Instructions Recorded Confirmed Last Taken Type aspirin 325 mg tablet 325 mg PO DAILY tab 08/10/19 04/30/21 12/10/20 History carvedilol 12.5 mg tablet 12.5 mg PO BID #180 tab 11/29/20 04/30/21 12/17/20 Rx isosorbide mononitrate 30 mg 30 mg PO QAM #90 tab 11/29/20 04/30/21 12/16/20 Rx tablet,extended release 24 hr pantoprazole 40 mg tablet,delayed 40 mg PO DAILY #30 tab 12/25/20 04/30/21 Unknown Rx release tamsulosin 0.4 mg capsule 0.4 mg PO DAILY 12/30/20 04/30/21 Unknown History trazodone 100 mg tablet 100 mg PO BEDTIME PRN 12/30/20 04/30/21 Unknown History duloxetine 30 mg capsule,delayed See Rx Instructions .ROUTE 04/02/21 04/30/21 Unknown Rx release .COMPLEX #270 cap enalapril maleate 20 mg tablet 40 mg PO DAILY #180 tab 04/29/21 04/30/21 Unknown Rx ondansetron HCl 4 mg tablet See Rx Instructions .ROUTE 06/23/21 Unknown Rx .COMPLEX #30 tab Allergies Allergy/AdvReac Type Severity Reaction Status Date / Time No Known Allergies Allergy Verified 04/29/21 13:53 PFSH Acute PFSH: Medical History Acute renal failure CAD (coronary artery disease) Cardiac ischemia Colon cancer T3 N0 M0 hepatic flexure Erectile dysfunction Essential hypertension Gout Lumbar disc disease with radiculopathy Mixed hyperlipidemia Nephrolithiasis Prostate cancer screening Pulmonary hypertension Pure hypercholesterolemia Surgical History H/O carpal tunnel repair H/O esophagogastroduodenoscopy H/O lithotripsy History of cataract surgery History of fusion of cervical spine C4-C7 ACDFF, with C6 corpectomy; 2002; [facility] C3-C4 ACDFF; 01/28/2018; [facility] History of lumbar surgery Left L4-L5, L5-S1 hemilaminotomy/discectomy/foraminotomy; 04/07/2019; [facility]. Right L3-L4 and reexploration left L4-L5 laminotomy/discectomy, 10/03/2019, [facility] [place]. Hx of cardiac catheterization Hx of cholecystectomy S/P bilateral inguinal hernia repair S/P right hemicolectomy (12/17/20) Status post colonoscopy Family History Brother Cancer Stomach Father Emphysema lung Lung disease Cancer Mother Hypertension Cancer Diabetes Social History Second hand smoke exposure: No Alcohol intake: current Alcohol intake frequency: few times a week Lives independently: Yes Marital status: Current occupational status: retired History of recent travel: No Vitals/I&O/Wt Last Vital Signs Temp 98.6 F 09/03/21 19:55 Pulse 57 L 09/03/21 19:55 Resp 17 09/03/21 19:55 BP 142/69 09/03/21 19:55 Pulse Ox 93 09/03/21 19:55 Weight last 48 hrs Weight 92.986 kg Physical Exam Const: COMMON NORMALS: no acute distress and patient oriented x3 GENERAL APPEARANCE: cooperative, well kempt and well developed HENMT: COMMON NORMALS: normocephalic and Normal external nose present HEAD & SCALP: normocephalic FACE & SINUS: normal facial exam NOSE: Normal exte rnal nose present Eye: COMMON NORMALS: Equal, round and reactive pupils present, EOMs intact bilaterally, conjunctivae normal and no scleral icterus CONJUNCTIVA: Yes conjunctivae normal PUPIL: Yes Equal, round and reactive pupils present Neck/C-Spine: COMMON NORMALS: full ROM, no lymphadenopathy, no JVD, Thyroid normal and No carotid bruits THYROID: Thyroid normal Lymph: LYMPHATIC: no lymphadenopathy noted Chest: COMMONS NORMALS: normal inspection of the chest Resp: COMMON NORMALS: normal respiratory effort, No retractions, No use of accessory muscles and clear to auscultation bilaterally AUSCULTATION: clear to auscultation bilaterally Cardio: COMMON NORMALS: no JVD, regular rate, regular rhythm, S1 normal heart sound present, S2 normal heart sound present, No murmurs present (Cardio) and Peripheral pulses 2+ throughout RATE: regular rate RHYTHM: regular rhythm HEART SOUNDS: S1 normal heart sound present and S2 normal heart sound present PERIPHERAL PULSES: Peripheral pulses 2+ throughout GI: COMMON NORMALS: Normal to inspection, nondistended, normoactive bowel sounds present, Soft to palpation, non-tender and No hepatosplenomegaly present PALPATION: Yes Soft to palpation and Yes No hepatosplenomegaly present Extremity: COMMON NORMALS: normal to inspection, full ROM, capillary refill normal, no calf tenderness and no pedal edema Neuro: COMMON NORMALS: patient oriented x3, CN's II-XII intact bilaterally, moves all extremities, no focal motor deficits and no sensory deficits noted MENINGEAL SIGNS: Yes no meningeal signs Psych: COMMON NORMALS: mental status grossly normal, Normal thought process present, cooperative and speech normal APPEARANCE: Yes well kempt SPEECH: Yes normal speech THOUGHT PROCESS: Normal thought process present Skin: COMMON NORMALS: turgor normal and no jaundice GENERAL SKIN EXAM: turgor normal Data : 09/03/21 16:05 09/03/21 16:05 A&P Assessment and plan (1) Syncope and collapse: Status: Acute (2) Chest pain: Status: Acute (3) Colon cancer: Status: Acute (4) Atherosclerosis of coronary artery of [place] heart without angina pectoris: Status: Acute Qualifiers: Coronary Disease-Associated Artery/Lesion type: [place] artery Qualified Code(s): I25.10 - Atherosclerotic heart disease of [place] coronary artery without angina pectoris (5) Pure hypercholesterolemia: Status: Acute (6) Bilateral renal stones: Status: Acute (7) Lumbar disc disease with radiculopathy: Status: Acute (8) 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 LVEF of 55% -Echocardiogram on last admission showed an EF of 50 to 55%, normal diastolic function -Chest pain seems typical, continues to have minimal chest pain -Baseline troponin is 24, 120-minute 19.6, delta 4.3 -EKG shows sinus bradycardia, right bundle branch block -TSH pending, BMP pending, 6-hour troponin -Has transaminitis, with rhabdo -All evidence of cardiac arrhythmia, resulting in syncope collapse, highly concerning for underlying worsening CAD Plan: -Needs to be admitted to [facility] -Continue aspirin, statin -Hold off on therapeutic Lovenox patient had a history of GI bleed during his l ast hospitalization, requiring 5 units PRBC, Protonix, Carafate -Nitro as needed for chest pain -Serial EKGs, troponins, monitor for chest pain -Telemetry monitoring -Cardiac echo, -Carotid artery ultrasound -Cardiology consulted -N.p.o. midnight, possible angiogram tomorrow morning -Full code -SCDs for DVT prophylaxis, Lovenox relatively contraindicated given history of GI bleed Rhabdomyolysis, IV fluids Transaminitis, History of iron deficiency anemia, concerning for GI loss Attestations Medical Necessity Statement*: Patient requires hospitalization, outpatient with observation, chest pain, syncope, collapse Coding Level of Care Code Acute Value Stream Coach for Chg Fwd Diagnoses Syncope and collapse R55 Chest pain R07.9 Colon cancer C18.9 Atherosclerosis of coronary artery of [place] heart without angina pectoris I25.10 Coronary Disease-Associated Artery/Lesion type: [place] artery Pure hypercholesterolemia E78.00 Bilateral renal stones N20.0 Lumbar disc disease with radiculopathy M51.16 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 M51.26 History of fusion of cervical spine Z98.1 Essential hypertension I10
[2021-09-03 21:57] LABS: NT Pro B Type Natriuretic Pept 74 pg/mL (0-125)
[2021-09-03 22:07] VITALS: BP 152/75; PULSE 61; PULSE 63; RESP 18; TEMP 36.8; O2SAT 95
[2021-09-03 22:07] LABS: Chol HDL Ratio 2.43 mg/dL (1.0-5.00); Cholesterol 270 mg/dL (0-200); HDL Cholesterol 111 mg/dL (60-100); LDL Cholesterol Calculated 129 mg/dL (50-129); LDL HDL Ratio 1.16 RATIO (0.00-3.22); Magnesium 1.6 mg/dL (1.7-2.3); Triglycerides 148 mg/dL (0-150)
[2021-09-03 22:15] LABS: D Dimer 1.81 ug/mIFEU (0-0.59)
[2021-09-03 22:34] LABS: Lactic Sepsis W/Reflex 2.8 mmol/L (0.5-2.2)
[2021-09-03] MEDS: atorvastatin 40 mg Tablet 80 MG PO (23:16)
[2021-09-03] MEDS: potassium chloride ER 20 mEq Tablet 40 MEQ PO (23:16)
[2021-09-03] MEDS: sodium chloride 0.9% 1,000 ML 100 ML IV (23:17)
[2021-09-03 23:52] LABS: Reflex Lactate Order REFLEX LACTIC ORDERD
[2021-09-04] VITALS (11 sets, daily range): BP systolic 143–175; BP diastolic 67–100; PULSE 60–106; RESP 18–32; TEMP 36.7–36.8; O2SAT 93–96; BMI 29.4
[2021-09-04 00:17] LABS: Thyroid Stimulating Hormone 0.76 uIU/mL (0.27-4.20)
[2021-09-04 01:45] LABS: Basophils % 0.5 %; Eosinophils # 0.2 10^3/uL (0.0-0.8); Eosinophils % 2.6 %; Hematocrit 40.1 % (42.0-52.0); Hemoglobin 12.9 g/dL (11.7-16.6); Lymphocytes # 1.2 10^3/uL (0.8-4.8); Lymphocytes % 18.6 %; Mean Corpuscular HGB Conc 32.2 g/dL (30.0-36.0); Mean Corpuscular Hemoglobin 27.9 pg (28.0-34.0); Mean Corpuscular Volume 86.6 fl (80-94); Mean Platelet Volume 9.3 fL (7.4-10.4); Monocytes # 0.6 10^3/uL (0.2-0.9); Monocytes % 8.6 %; Neutrophils # 4.52 10^3/uL (1.8-7.7); Neutrophils % 69.2 %; Nucleated Red Blood Cells % 0 %; Platelet Count 136 10^3/cmm (130-400); Red Blood Count 4.63 10^6/uL (4.1-5.3); Red Cell Distribution Width 16.1 % (12.1-15.1); White Blood Count 6.5 10^3/uL (4.0-10.0)
[2021-09-04 01:59] LABS: Lactic Acid level (Lactate) 2.6 mmol/L (0.5-2.2)
[2021-09-04 02:32] LABS: Alanine Aminotransferase 43 U/L (0-41); Albumin Level 4.4 g/dL (3.5-5.2); Alkaline Phosphatase 89 IU/L (40-130); Anion Gap 21.7 (5-19); Aspartate Amino Transferase 85 U/L (0-40); Blood Urea Nitrogen 9 mg/dL (8-23); Calcium 9.7 mg/dL (8.5-10.5); Carbon Dioxide 23 mmol/L (22-29); Chloride 97 mmol/L (98-107); Globulin 2.9 g/dL (1.3-4.6); Glomerular Filtration Rate 112.1 mL/min (90-130); Glucose 85 mg/dL (65-115); Osmolality Calculated 286 mOsm/kg (285-295); Sodium 139 mmol/L (136-145); Total Bilirubin 0.5 mg/dL (0.15-1.2); Total Protein 7.3 g/dL (6.6-8.7)
[2021-09-04 02:49] LABS: Potassium 2.7 mmol/L (3.5-5.1)
[2021-09-04] MEDS: potassium chloride ER 20 mEq Tablet 40 MEQ PO (03:12)
--- NOTE | 2021-09-04 05:41 | P.CONIM_ITS ---
Providers/Reason For Consult Consulting Physician/Specialty*: Dr. Suárez, cardiology Reason for Consult*: Chest pain, syncopal episode Attending Physician: Kady Amor MD Primary Care Provider: Eh Haddad MD History of Present Illness History of Present Illness Daniel Patel is a 70 year old male with PMHx of mild CAD, essential hypertension, mixed hyperlipidemia,GERD, chronic atypical chest pains, anemia and colon cancer s/p partial colon resection. Last cardiac catheterization in 01/2016 showed normal left main, normal LAD, mildly eccentric plaque in the circumflex, tapering narrowing of about 40% in the non dominant RCA with one PDA branch with an ostial narrowing of 30-40%. LVEF of 55%. Yesterday afternoon around 2 PM he was helping his (wheelchair dependent due to MS) and when he stood up. he had retrosternal sharp chest pain no nradiating similar to what he usually has but different as soon thereafter he felt lightheaded and passed out and fell on his left side. No heart racing/palpitations. No nausea/vomiting/diaphoresis. His said that he passed out for roughly 2 minutes, no seizure-like episodes, no headache, no faith rry vision, no strokelike symptoms.? He is still complaining of left-sided reproducible and pleuritic chest pain that started after he fell and hurt his chest. Labs with potassium 3.2, CK 540, troponin T flat. CT of the head no acute stroke. Orthostatic vitals negative. He is saturating well on room air. EKG showed sinus bradycardia with first degree AV block. RBBB (new as compared to before). TTE with normal LV and RV function. Review of Systems Const: Denies: fever(s), chills, fatigue or malaise Eyes: Denies: change in vision or blurry vision ENMT: Denies: nasal congestion Card: Reports: chest pain, lightheadedness and syncope; Denies: palpitations, irregular heart rhythm, edema, pre-syncope, dyspnea on exertion or orthopnea Resp: Denies: dyspnea, productive cough, non-productive cough or wheezing GI: Reports: nausea; Denies: abdominal pain, vomiting, diarrhea, constipation, hematochezia or melena : Denies: flank pain, difficulty urinating, dysuria or urinary frequency Musc: Denies: neck pain or back pain Skin/Breast: Denies: rash Neuro: Denies: headache(s), numbness in extremities, weakness in extremities, sensory changes, lack of coordination, difficulty walking, frequent falls, dizziness, vertigo, confusion, Slurred speech present, difficulty communicating thoughts or seizure-like activity Psych: Denies: anxiety or depression Endo: Denies: polyuria or polydipsia Medications/Allergies Home Medications Medication Instructions Recorded Confirmed Last Taken Type aspirin 325 mg tablet 325 mg PO DAILY tab 08/10/19 04/30/21 12/10/20 History carvedilol 12.5 mg tablet 12.5 mg PO BID #180 tab 11/29/20 04/30/21 12/17/20 Rx isosorbide mononitrate 30 mg 30 mg PO QAM #90 tab 11/29/20 04/30/21 12/16/20 Rx tablet,extended release 24 hr tamsulosin 0.4 mg capsule 0.4 mg PO DAILY 12/30/20 04/30/21 Unknown History trazodone 100 mg tablet 100 mg PO BEDTIME PRN 12/30/20 04/30/21 Unknown History Vitamin B-12 1 tab PO DAILY 09/04/21 09/04/21 Unknown History amlodipine 10 mg tablet 5 mg PO QAM 09/04/21 09/04/21 Unknown History ascorbic acid (vitamin C) 500 mg 500 mg PO DAILY 09/04/21 09/04/21 Unknown History tablet (Vitamin C) cholecalciferol (vitamin D3) 25 25 mcg PO DAILY 09/04/21 09/04/21 Unknown History mcg (1,000 unit) tablet (Vitamin D3) duloxetine 30 mg capsule,delayed 90 mg PO QAM 09/04/21 09/04/21 Unknown History release enalapril maleate 20 mg tablet 40 mg PO QAM 09/04/21 09/04/21 Unknown History ondansetron HCl 4 mg tablet 4 mg PO Q8H PRN 09/04/21 09/04/21 Unknown History zinc 50 mg tablet 50 mg PO DAILY 09/04/21 09/04/21 Unknown History Allergies Allergy/AdvReac Type Severity Reaction Status Date / Time No Known Allergies Allergy Verified 09/04/21 08:47 Current Medications Generic Name Dose Route Start Last Admin Trade Name Freq PRN Reason Stop Dose Admin Atorvastatin Calcium 80 mg 09/03/21 21:30 09/03/21 23:16 Atorvastatin 40 Mg Tablet PO 80 mg BEDTIME THA Administration PFSH Acute PFSH: Medical History (Updated 09/04/21 @ 05:58 by Wendy Suárez MD) Acute renal failure CAD (coronary artery disease) Cardiac ischemia Colon cancer T3 N0 M0 hepatic flexure Erectile dysfunction Essential hypertension Gout Lumbar disc disease with radiculopathy Mixed hyperlipidemia Nephrolithiasis Prostate cancer screening Pulmonary hypertension Pure hypercholesterolemia Surgical History H/O carpal tunnel repair H/O esophagogastroduodenoscopy H/O lithotripsy History of cataract surgery History of fusion of cervical spine C4-C7 ACDFF, with C6 corpectomy; 2002; [facility] C3-C4 ACDFF; 01/28/2018; [facility] History of lumbar surgery Left L4-L5, L5-S1 hemilaminotomy/discectomy/foraminotomy; 04/07/2019; [facility]. Right L3-L4 and reexploration left L4-L5 [place], [place] [facility] [place] Hx of cardiac catheterization Hx of cholecystectomy S/P bilateral inguinal hernia repair S/P right hemicolectomy (12/17/20) Status post colonoscopy Family History Brother Cancer Stomach Father Emphysema lung Lung disease Cancer Mother Hypertension Cancer Diabetes Social History Second hand smoke exposure: No Alcohol intake: current Alcohol intake frequency: few times a week Lives independently: Yes Marital status: Current occupational status: retired History of recent travel: No Vitals/I&O/Wt Last Vital Signs Temp 98.2 F 09/03/21 22:07 Pulse 83 09/04/21 05:30 Resp 19 H 09/04/21 05:30 BP 153/94 09/04/21 05:30 Pulse Ox 95 09/04/21 05:30 Weight last 48 hrs Weight 205 lb Physical Exam Narrative: GENERAL: Averagely built and averagely nourished in no acute distress HEENT: Pupils equal round reactive to light. No pallor or icterus. NECK: central trachea, no JVD, No carotid bruit. CARDIOVASCULAR SYSTEM: S1-S2 regular. No S3 or S4 present. No murmur or gallops. RESPIRATORY SYSTEM: Chest clear to auscultation. No wheezes rhonchi or rubs hea rd. No use of accessory muscles. Reproducible chest pain left parasternal ABDOMEN: Soft, nontender and nondistended. Normal bowel sounds present. EXTREMITIES: No cyanosis or clubbing. No edema. No signs of chronic venous insufficiency. CEO & BOARD DIRECTOR: Patient is alert oriented ?3. No focal neurological deficits. SKIN: Normal turgor and temperature. PSYCH: Normal insight and judgment. Data : 09/04/21 01:21 09/04/21 01:21 Other data: 12/18/20 Echo LV systolic function is borderline normal with EF of 50-55% ?Normal diastolic function ?No significant valvular heart disease ?Compared to prior echocardiogram from 2018, no significant ?changes are noted. LMM STRESS? ? 10/02/2017 No significant EKG changes with the LexiScan infusion 2. No LexiScan induced chest pain or cardiac arrhythmia 3. Normal blood pressure and heart rate response Myocardial perfusion imaging?revealing a small area of persistent, decreased tracer uptake in the mid and apical inferolateral wall region, suggestive of myocardial scarring versus attenuation artifact. LV ejection fraction was estimated to be 70% LV wall motion analysis revealed no gross wall motion abnormalities Normal left ventricular volume. No significant coronary ischemia, based the above findings LEFT HEARTH CATHETERIZATION? ? 02/03/16 Mild disease in the nondominant right coronary artery Medium to large caliber LAD and circumflex arteries with extremely short left main Normal left ventricular ejection fraction of 55% Slightly elevated LVEDP A&P Assessment and plan (1) Chest pain: No recurrence of retrosternal chest discomfort that he had initially. Current chest pain is reproducible and pleuritic in nature after his fall. -I will plan for stress test for further risk stratification. Status: Acute (2) Syncope and collapse: -No arrhythmia on telemetry so far May benefit from event monitor based on findings of stress test and carotid duplex. -Further recommendation based on finding of tests and clinical progression Status: Acute (3) CAD (coronary artery disease): Mild CAD by cardiac catheterization in 2016 and nondominant RCA. Normal left system. Status: Acute (4) Mixed hyperlipidemia: Status: Chronic (5) Essential hypertension: Status: Chronic Plan History of atypical chest pain Hypokalemia: Replaced Hypomagnesemia: Replaced Coding Level of Care Code New Pt Acute Square Dance Caller for Chg Fwd Patient Type New History Comprehensive Exam Comprehensive Medical Decision Making High Complexity Diagnoses Chest pain R07.9 Syncope and collapse R55 CAD (coronary artery disease) I25.10 Mixed hyperlipidemia E78.2 Essential hypertension I10
[2021-09-04] MEDS: ondansetron 2 mg/ML SDV 2 mL 4 MG IVP (08:22)
[2021-09-04] MEDS: tamsulosin 0.4 mg Capsule PO (08:30)
[2021-09-04] MEDS: pantoprazole DR 40 mg Tablet PO (08:30)
[2021-09-04] MEDS: aspirin 81 mg EC Tablet PO (08:30)
--- NOTE | 2021-09-04 08:30 | ECG_ITS ---
[facility] Test Date: 2021-09-04 Pat Name: Daniel Patel Department: Room: ED Gender: Male Polisher Apprentice: : 1950 Requested By: Wendy Suárez Order Number: [id number] Juan MD: Wendy Suárez M.D. Interpretive Statements NAME OF STUDY: LEXISCAN SESTAMIBI STRESS TEST INDICATION: Chest Pain PROCEDURE: At the baseline, the blood pressure was 153/89 mm Hg with a heart rate of 96 bpm. The electrocardiogram showed sinus rhythm, right axis deviation. RBBB. The Lexiscan was infused over a period of 20 seconds. A total of 0.4 milligrams of Lexiscan was infused. The stress phase was continued for a total of 5 minutes. Heart rate at the end of the stress phase was 115 bpm with a blood pressure of 147/83 mm Hg. The EKG at the peak infusion revealed sinus tachycardia with no significant ST-T wave changes. Sestamibi was injected 20 seconds after the Lexiscan infusion. Blood pressure at the end of the recovery phase was 165/81 mm Hg with a heart rate of 113 beats per minute. CONCLUSION: 1. No significant EKG changes with the LexiScan infusion. 2. No LexiScan induced chest pain or cardiac arrhythmia. 3. Normal blood pressure and heart rate response. 4. Sestamibi/sestamibi perfusion scan pending; see separate report. Electronically Signed On 09-18-2021 6:54:34 AUTO CUSTOMIZE PAINTER by Wendy Suárez M.D. [id number]
--- NOTE | 2021-09-04 08:30 | NMCV_ITS ---
NM shirlene perf SPECT r/s* [id number] Daniel Patel Age: 70 Gender: M : 1950 Exam Date: 09/04/2021 08:30 Ordering Phys: Wendy Suárez MD ([email or web address]) Technologist: BILLY Francisco Exam Location: [facility] Indications: CHEST PAIN STRESS TEST Please see separate stress test report in [facility] for full findings IMAGE PROTOCOL Rest/Stress 1 Lexiscan Day Radiopharmaceutical Dose (mCi) Administration Site Administered by Rest: Tc-99m 11.0 IV BILLY Chavis Sestamibi Stress:Tc-99m 32.8 IV BILLY Chavis Sestamibi Rest: 04-Sep-2021 60 Discovery 630 Stress: 04-Sep-2021 30 Discovery 630 0.4mg Lexiscan. Supine position only as patient was unable to lay prone. SPECT RESULTS Technical Quality: Good Raw Data Analysis: Normal Image Corrections: No attenuation or motion correction applied Summed Stress Score: 2 Summed Rest Score: 10 Summed Difference Score: 0 PERFUSION FINDINGS Medium sized perfusion abnormality of moderate severity of basal to apical inferior, mid inferolateral and apical lateral wall on rest images with improved tracer uptake on stress images. FUNCTIONAL RESULTS (calculated via Gated SPECT) Stress Image LV EF (%): 63 Stress EDV (mL):153 TID: 1.06 Stress ESV (mL):56 FUNCTIONAL FINDINGS: The left ventricle is normal in size. Transient Ischemia Dilatation of 1.1. There is normal left ventricular systolic function. The left ventricular ejection fraction is normal with a value of 63%. There is normal left ventricular wall thickening with no regional wall motion abnormality. IMPRESSIONS 1. Medium sized paradoxical perfusion abnormality of moderate severity of basal to apical inferior, mid inferolateral and apical lateral wu. 2. This may represent attenuation artifact or old myocardial infarction. 3. Overall left ventricular systolic function is normal without regional wall motion abnormalities, LVEF=63%. 4. EKG portion of the study will be reported separately. 5. Scan indicates low risk for cardiac events. Wendy Suárez MD (Electronically Signed) Final Date: 04 September 2021 14:20 S
[2021-09-04] MEDS: regadenoson 0.4 Mg/5 ml Syringe IVP (10:10)
--- NOTE | 2021-09-04 10:15 | PM.PN ---
Vitals/I&O/Wt Last Vital Signs Temp 98.1 F 09/04/21 08:28 Pulse 90 09/04/21 08:28 Resp 30 H 09/04/21 08:28 BP 165/100 09/04/21 08:28 Pulse Ox 93 09/04/21 08:28 Weight last 48 hrs Weight 92.986 kg Data : 09/04/21 01:21 09/04/21 01:21 Coding Level of Care Code Acute Back Hoe Operator for 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
--- NOTE | 2021-09-04 10:55 | PC.NURSE ---
Attempted to return call to daughter with no answer. Left voicemail to return call.
--- NOTE | 2021-09-04 12:03 | PC.NURSE ---
Patients blood pressure remains elevated. Dr. Ramey ordered to start home blood pressure medications and discontinue fluid order.
[2021-09-04] MEDS: amlodipine 5 mg Tablet PO (12:28)
[2021-09-04] MEDS: acetaminophen 325 mg Tablet 650 MG PO (14:09)
--- NOTE | 2021-09-04 14:45 | CT_ITS ---
WS: [id number] CT CHEST ANGIOGRAPHY WITH REFORMATS HISTORY: syncope TECHNIQUE: Contiguous axial images are obtained through the chest during arterial injection of intrav enous contrast. Images are reconstructed to evaluate the pulmonary arteries. MIP imaging also reviewe d. All CT scans at [facility] use at least one of these dose optimization techniques: automat ed exposure control; mA and/or kV adjustment per patient size (includes targeted exams where dose is matched to clinical indication); or iterative reconstruction. CONTRAST: Omnipaque 350; 62 mL IV. DLP: 1082.54 mGy.cm COMPARISON: 04/23/2021 Adequate opacification of the pulmonary arteries. No filling defects or pulmonary embolism. Pulmonary artery is moderately dilated measuring 3.0 cm. Atherosclerotic changes within the thoracic aorta. No aneurysm. Mild enlargement of the LEFT heart chambers. No RIGHT heart strain. No pericardial or pleu ral effusions. No pneumonia. Benign granuloma RIGHT lower lobe. Mild dependent changes posteriorly in the RIGHT lowe r lobe. No mediastinal or hilar adenopathy. There are calcified lymph nodes in the RIGHT subcarinal r egion. Prior cholecystectomy. Liver is enlarged with diffuse moderate hepatic steatosis. No bile duct dilata tion. Normal size spleen with granulomata. No adrenal mass. Increase in thoracic kyphosis. Thoracic spondylitic changes. Minimally displaced posterior lateral LEFT fifth rib fracture. There is also a nondisplaced fracture which is more difficult to see in the posterior lateral LEFT fourth rib. Prior posterior LEFT eighth and ninth healed rib fractures. CT/CT angio chest PE protcl [id number] IMPRESSION: 1. No pulmonary embolism. 2. Mild pulmonary hypertension. 3. No pneumonia. 4. Prior cholecystectomy. 5. Hepatic steatosis and hepatomegaly. 6. Acute nondisplaced LEFT fourth and fifth rib fractures.
--- NOTE | 2021-09-04 14:47 | PM.PN ---
Subjective Subjective: Patient is experiencing reproducible chest pain on left side, I do not see any signs of fracture on the x-ray right hemidiaphragm noted, no signs of PE carotid Doppler less than 50% stenosis, myocardial perfusion scan is unremarkable, echo did not show any wall motion abnormality Because of severe hypokalemia and hypomagnesemia and high lactic acid he will be admitted Patient is stating that since his diagnosis of cancer he does vomit on and off with diarrhea Vitals/I&O/Wt Last Vital Signs Temp 98.1 F 09/04/21 08:28 Pulse 85 09/04/21 13:41 Resp 26 H 09/04/21 13:41 BP 168/87 09/04/21 13:41 Pulse Ox 93 09/04/21 13:41 09/03/21 09/04/21 09/04/21 22:59 06:59 14:59 Output Total 500 / 500 Balance -500 / -500 Weight last 48 hrs Weight 92.986 kg Physical Exam Narrative: Patient is awake and alert No active shortness of breath Saturating well on room air Nonfocal neuro exam Gait was not tested Orthostatics were not done Soft abdomen Euvolemic Awake and alert Nonfocal neuro exam EOMI, PERRLA S1, S2 No audible stridor or wheezing Data : 09/04/21 01:21 09/04/21 01:21 A&P Assessment and plan (1) Syncope and collapse: Status: Acute (2) Chest pain: Status: Acute (3) Hypokalemia: Status: Acute (4) Hypomagnesemia: Status: Acute Plan Syncope and collapse PE ruled out Cardiac stress test unremarkable He will need event monitor at the time of discharge His D-dimer high which could be related to his underlying cancer Echo unremarkable Severe electrolyte imbalance could have contributed to syncopal event as well No active seizure-like activity His lactic acid is high we will get prolactin level IV fluids discontinued because of hypotension, home antihypertensive regimen reinstated Hypokalemia, hypomagnesemia repleted Cardiac diet Full code DVT prophylaxis on board Greatly appreciate cardiology recommendations and evaluation while patient was in the ER Attestations Medical Necessity Statement*: Discharge in next 24 hours if clinically stable Time Spent in Patient Care: 20 minutes Coding Level of Care Code Acute Podiatric Physician for 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 Diagnoses Syncope and collapse R55 Chest pain R07.9 Hypokalemia E87.6 Hypomagnesemia E83.42
[2021-09-04] MEDS: iohexol 350 mg/mL 100 mL Btl IV (15:54)
[2021-09-04] MEDS: magnesium sulfate premix 2 GM/50 ML PIGGYBACK IV (16:55)
[2021-09-04] MEDS: lidocaine 1% 5 ML in potassium chloride premix 100 ML 25 ML IV ×2 (16:57→21:19)
--- NOTE | 2021-09-04 17:34 | PC.NURSE ---
Duplicate order for Enalapril. Second order discontinued per Dr. Ramey order.
[2021-09-04] MEDS: carvedilol 12.5 mg Tablet PO (17:37)
[2021-09-04] MEDS: isosorbide mononitrate ER 30 mg Tablet PO (17:37)
--- NOTE | 2021-09-04 18:26 | PC.NURSE ---
Report called to ROSA Leblanc
[2021-09-04 18:35] LABS: Prolactin 16.94 ng/mL (4.0-15.2)
[2021-09-04] MEDS: atorvastatin 40 mg Tablet 80 MG PO (21:22)
[2021-09-04] MEDS: trazodone 100 mg Tablet PO (21:22)
--- NOTE | 2021-09-04 21:22 | USCV_ITS ---
Daniel Patel Age: 70 Gender: M : 1950 Exam Date: 09/04/2021 06:28 Ordering Phys: Pierre Hermosillo MD Technologist: [place] [facility] [place]: [place] Risk Factors: Previous Vascular Surgery: Right Brachial BP: / Left Brachial BP: / Right Left Velocity (cm/s) Spectral Plaque Velocity (cm/s) Spectral Plaque Syst/Diast Broadening Syst/Diast Broadening 81.60/ 17.60 Prox CCA 88.10 / 17.10 88.20/ 16.50 Mid CCA 86.80 / 19.70 75.00/ 14.30 Distal CCA 72.30 / 13.10 57.30/ 13.70 Prox ICA 47.00 / 14.40 58.10/ 17.10 Mid ICA 52.35 / 13.35 73.50/ 14.50 Distal ICA 68.40 / 19.20 112.50 ECA 84.10 0.83 ICA/CCA 0.78 Antegrade Vertebral Antegrade 31.60/ 11.10 cm/s 42.20/ 7.50 cm/s Tri Subclavian Tri 105.2 88.00 0 CONCLUSIONS Right ICA stenosis <50%. Mild atheromatous plaque right carotid bulb/ICA. Left ICA stenosis <50%. Mild atheromatous plaque left carotid bulb/ICA. Normal antegrade Doppler flow noted in the right vertebral artery. Normal antegrade Doppler flow noted in the left vertebral artery. Mynor Culp MD (Electronically Signed) Final Date: 04 September 2021 09:16 S
--- NOTE | 2021-09-04 21:22 | USCV_ITS ---
Daniel Patel Age: 70 Gender: M : 1950 Exam Date: 09/04/2021 06:12 Ordering Phys: Pierre Hermosillo MD Technologist: Exam Location: [facility] [place] Indication: SYNCOPE BP: 153 / 94 HR: 97 Rhythm: Sinus Technical Quality: Adequate MEASUREMENTS (Male / Female) Normal Values 2D ECHO LV Diastolic Diameter PLAX 4.9 cm 4.2 - 5.9 / 3.9 - 5.3 cm LV Systolic Diameter PLAX 3.5 cm IVS Diastolic Thickness 1.4 cm 0.6 - 1.0 / 0.6 - 0.9 cm IVS Systolic Thickness 1.4 cm LVPW Diastolic Thickness 1.2 cm 0.6 - 1.0 / 0.6 - 0.9 cm LVPW Systolic Thickness 1.4 cm LVOT Diameter 2.0 cm LV Ejection Fraction 2D Teich 43.5 % LV Ejection Fraction MOD 2C 46.6 % LV Ejection Fraction 2C AL 45.4 % LA Diameter 3.8 cm Aorta at Sinotubular Diameter 3.0 cm M-MODE Aortic Annulus Diameter 3.5 cm LA Ao Ratio MM 1.2 MV E Point Septal Separation 1.4 cm DOPPLER AV Peak Velocity 165.0 cm/s LVOT Peak Velocity 95.0 cm/s AV Area Cont Eq vti 1.8 cm squared AV Area Cont Eq pk 1.9 cm squared MV Area PHT 5.0 cm squared Mitral E to A Ratio 0.6 MV E' Velocity 32.5 cm/s Mitral E to MV E' Ratio 5.3 Mitral E to LV E' Lateral Ratio 5.2 Mitral E to LV E' Septal Ratio 5.4 TR Peak Velocity 155.3 cm/s TR Peak Gradient 9.7 mmHg TV Peak E Velocity 131.0 cm/s Right Atrial Pressure 3.0 mmHg Pulmonary Artery Systolic Pressu 12.7 mmHg PV Peak Velocity 137.0 cm/s RV Acceleration Time 0.1 s FINDINGS Left Ventricle Normal left ventricular size, systolic function and wall thickness, with no diagnostic regional wall motion abnormalities. Left ventricular ejection fraction is estimated at 55%. Abnormal septal motion consistent with conduction abnormality. Normal diastolic function. Right Ventricle Normal right ventricular size and systolic function. Right ventricular systolic pressure 12.7 mmHg. Right Atrium Normal right atrial size. Left Atrium Normal left atrial size. Mitral Valve Structurally normal mitral valve. No mitral valve stenosis. Trace mitral valve regurgitation. Aortic Valve Aortic valve not well visualized. No aortic valve stenosis. No aortic valve regurgitation. Tricuspid Valve Structurally normal tricuspid valve. Trace tricuspid valve regurgitation. Pulmonic Valve Pulmonic valve not well visualized. Pericardium No pericardial effusion. Aorta Normal size aortic root and proximal ascending aorta. CONCLUSIONS 1. Normal left ventricular size, systolic function and wall thickness, with no diagnostic regional wall motion abnormalities. Left ventricular ejection fraction is estimated at 55%. Abnormal septal motion consistent with conduction abnormality. Normal diastolic function. 2. Normal right ventricular size and systolic function. 3. Nornal pulmonary artery pressure. 4. No significant change when compared to previous study dated 12/18/2020. Wendy Suárez MD (Electronically Signed) Final Date: 04 September 2021 08:39 S
[2021-09-05 04:00] VITALS: BP 120/78; PULSE 107; RESP 17; TEMP 37.3; O2SAT 92
--- NOTE | 2021-09-05 04:01 | PC.NURSE ---
0400 Ambulates to nurses station via walker. Reports the other pt in room has kept him up all night talking and calling conductor/brakeman light. This pt is going to set in waiting room by nurses station to rest.
[2021-09-05] MEDS: isosorbide mononitrate ER 30 mg Tablet PO (05:20)
[2021-09-05 05:24] LABS: Basophils % 0.4 %; Eosinophils # 0.2 10^3/uL (0.0-0.8); Eosinophils % 2.6 %; Hematocrit 38.8 % (42.0-52.0); Hemoglobin 12.3 g/dL (11.7-16.6); Lymphocytes # 1.1 10^3/uL (0.8-4.8); Lymphocytes % 14.9 %; Mean Corpuscular HGB Conc 31.7 g/dL (30.0-36.0); Mean Corpuscular Hemoglobin 27.8 pg (28.0-34.0); Mean Corpuscular Volume 87.6 fl (80-94); Mean Platelet Volume 10.6 fL (7.4-10.4); Monocytes # 0.8 10^3/uL (0.2-0.9); Monocytes % 10.3 %; Neutrophils # 5.28 10^3/uL (1.8-7.7); Neutrophils % 71.4 %; Nucleated Red Blood Cells % 0 %; Platelet Count 129 10^3/cmm (130-400); Red Blood Count 4.43 10^6/uL (4.1-5.3); Red Cell Distribution Width 16.4 % (12.1-15.1); White Blood Count 7.4 10^3/uL (4.0-10.0)
[2021-09-05 05:44] LABS: Blood Urea Nitrogen 8 mg/dL (8-23); Carbon Dioxide 29 mmol/L (22-29); Chloride 96 mmol/L (98-107); Creatine Phosphokinase 312 U/L (39-308); Glomerular Filtration Rate 112.1 mL/min (90-130); Glucose 118 mg/dL (65-115); Magnesium 1.9 mg/dL (1.7-2.3); Osmolality Calculated 285 mOsm/kg (285-295); Sodium 138 mmol/L (136-145)
[2021-09-05 05:49] LABS: Lactate (Lactic Acid level) 1.2 mmol/L (0.5-2.2)
[2021-09-05 05:50] LABS: Anion Gap 16.7 (5-19); Potassium 3.7 mmol/L (3.5-5.1)
[2021-09-05 06:00] VITALS: PULSE 94
--- NOTE | 2021-09-05 09:03 | P.DS_ITS ---
Discharge Providers Date of Admission: 09/04/21 16:57 Date of Discharge: September 05, 2021 Attending Provider at Admission: Kady Amor MD Attending Provider at Discharge: Donis Ramey MD Primary Care Provider: Eh Haddad MD Diagnoses at Discharge Discharge Diagnosis (1) Syncope and collapse: Status: Acute (2) Chest pain: Status: Acute (3) Hypokalemia: Status: Acute (4) Hypomagnesemia: Status: Acute Reason for Visit Reason for Visit: SYNCOPE, CHEST PAIN Hospital Course Hospital Course Admitting note was done by Dr. Pierre Sanchez Abril Patel is a 70 year old male with a past medical history of hypertension, hyperlipidemia, CAD, colon cancer adenocarcinoma status post hemicolectomy, pulmonary hypertension, history of renal failure, history of small bowel obstruction, history of nephrolithiasis who presents [facility] due to chest pain, syncope, collapse.? 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 Today at roughly 2 PM, he was helping his , when he noticed that he start develop severe substernal chest pain, in the left side of his chest, nonradiating, no nausea, no vomiting, no diaphoresis, did feel a bit lightheaded, shortly thereafter, he passed out.? His said that he passed out for roughly 2 minutes, no seizure-like episodes reported, no headache, no blurry vision, no strokelike symptoms no facial droop, no slurring of his words, no focal neurologic deficits.? Immediately after he was a bit groggy, but still complaining of left-sided chest pain, he says that the chest pain abated, no visual deficits, no strokelike symptoms, no significant trauma.? Here in the emergency room his potassium 3.2, CK 540, had transaminitis, troponin 24, EKG no acute T wave changes, CT of the head no acute stroke, hospitalist team was called for admission.? Patient complains of some substernal chest pain, quite minimal right now, currently normal sinus rhythm, hemodynamically stable, Hospital course Patient was admitted for management and evaluation of syncope and chest discomfort. Carotid Doppler, CT head, cardiac stress unremarkable., he was evaluated by Dr. Suárez in the ER. He was admitted because of severe electrolyte imbalance. Orthostatics were not done in the ER. Echo did not show significant changes in his EF he will be discharged home on 09/05 with event monitor. Potassium and magnesium repleted during hospitalization. IV fluid resuscitation did improve his lactic acid. Patient is stating that since his diagnosis of adenocarcinoma of colon he has been having loose stools. EF 55% without aortic valve stenosis that could explain syncopal event, abnormal septal motion related to conduction abnormality. Secondary to high D-dimer CTA chest was requested which ruled out pulmonary embolism. Physical Exam Narrative: Patient is awake and alert No active shortness of breath Saturating well on room air Nonfocal neuro exam Gait was not tested Soft abdomen Euvolemic Awake and alert Nonfocal neuro exam EOMI, PERRLA S1, S2 No audible stridor or wheezing ? Discharge Data Studies Completed and Pending Completed Studies During Hospitalization Category Date Time Status CT head wo con* [id number] Stat Cat Scan 09/03/21 18:23 Completed CTA PE [CT angio chest PE protcl [id number]] Stat Cat Scan 09/04/21 14:45 Completed Cardiac Stress Test MIBI [Sestamibi Stress Test Request Exams 09/04/21 08:30 Draft ] Routine XR chest 1V portable [id number] Stat Exams 09/03/21 15:30 Completed NM shirlene perf SPECT r/s* [id number] Routine Nuc Med 09/04/21 08:30 Completed CV carotid duplex BI* [id number] Stat Ultrasound 09/04/21 21:22 Completed CV. echo complete* [id number] Stat Ultrasound 09/04/21 21:22 Completed Pending at discharge Category Date Time Status Urine Culture Stat Lab 09/03/21 18:45 Received Radiology Impressions Chest X-Ray 09/03/21 15:30 IMPRESSION: Lung volumes are decreased. No pneumonia. Head CT 09/03/21 18:23 IMPRESSION: 1. Mild bilateral ethmoid sinus disease. 2. No acute intracranial findings. Chest CTA 09/04/21 14:45 IMPRESSION: 1. No pulmonary embolism. 2. Mild pulmonary hypertension. 3. No pneumonia. 4. Prior cholecystectomy. 5. Hepatic steatosis and hepatomegaly. 6. Acute nondisplaced LEFT fourth and fifth rib fractures. Laboratory Results WBC 7.4 10^3/uL (4.0-10.0) 09/05/21 05:09 RBC 4.43 10^6/uL (4.1-5.3) 09/05/21 05:09 Hgb 12.3 g/dL (11.7-16.6) 09/05/21 05:09 Hct 38.8 % (42.0-52.0) L 09/05/21 05:09 MCV 87.6 fl (80-94) 09/05/21 05:09 MCH 27.8 pg (28.0-34.0) L 09/05/21 05:09 MCHC 31.7 g/dL (30.0-36.0) 09/05/21 05:09 RDW 16.4 % (12.1-15.1) H 09/05/21 05:09 Plt Count 129 10^3/cmm (130-400) L 09/05/21 05:09 MPV 10.6 fL (7.4-10.4) H 09/05/21 05:09 Neut % (Auto) 71.4 % 09/05/21 05:09 Lymph % (Auto) 14.9 % 09/05/21 05:09 [place] % (Auto) 10.3 % 09/05/21 05:09 Eos % (Auto) 2.6 % 09/05/21 05:09 Baso % (Auto) 0.4 % 09/05/21 05:09 Neut # (Auto) 5.28 10^3/uL (1.8-7.7) 09/05/21 05:09 Lymph # (Auto) 1.1 10^3/uL (0.8-4.8) 09/05/21 05:09 [place] # (Auto) 0.8 10^3/uL (0.2-0.9) 09/05/21 05:09 Eos # (Auto) 0.2 10^3/uL (0.0-0.8) 09/05/21 05:09 Baso # (Auto) 0.0 10^3/uL (0.0-0.1) 09/05/21 05:09 Nucleated RBC % (auto) 0 % 09/05/21 05:09 Nucleated RBCs # 0.0 /100WBC 09/05/21 05:09 D-Dimer 1.81 ug/mIFEU (0-0.59) H 09/03/21 21:55 Sodium 138 mmol/L (136-145) 09/05/21 05:09 Potassium 3.7 mmol/L (3.5-5.1) 09/05/21 05:09 Chloride 96 mmol/L (98-107) L 09/05/21 05:09 Carbon Dioxide 29 mmol/L (22-29) 09/05/21 05:09 Anion Gap 16.7 (5-19) 09/05/21 05:09 BUN 8 mg/dL (8-23) 09/05/21 05:09 Creatinine 0.7 mg/dL (0.7-1.2) 09/05/21 05:09 GFR Calculation 112.1 mL/min (90-130) 09/05/21 05:09 Glucose 118 mg/dL (65-115) H 09/05/21 05:09 Calculated Osmolality 285 mOsm/kg (285-295) 09/05/21 05:09 Lactic Acid 2.8 mmol/L (0.5-2.2) H 09/03/21 22:01 Lactic Acid (Sepsis) 2.6 mmol/L (0.5-2.2) H 09/04/21 01:21 Lactate 1.2 mmol/L (0.5-2.2) 09/05/21 05:09 Calcium 9.0 mg/dL (8.5-10.5) 09/05/21 05:09 Phosphorus 3.0 mg/dL (2.5-4.5) 09/03/21 16:15 Magnesium 1.9 mg/dL (1.7-2.3) 09/05/21 05:09 Total Bilirubin 0.5 mg/dL (0.15-1.2) 09/04/21 01:21 AST 85 U/L (0-40) H 09/04/21 01:21 ALT 43 U/L (0-41) H 09/04/21 01:21 Alkaline Phosphatase 89 IU/L (40-130) 09/04/21 01:21 Creatine Kinase 312 U/L (39-308) H 09/05/21 05:09 Troponin T Baseline 24 ng/L (0-15) H 09/03/21 16:05 Troponin T 120 Minute 19.64 ng/L (0-15) H 09/03/21 17:37 Delta Troponin T -4.36 ABS# (0-10) L 09/03/21 17:37 Troponin T Hi Sens 6Hr 20.60 ng/L (0-15) H 09/03/21 21:55 Troponin T Hi Sens 6Hr Delta -3.40 ng/L (0-12) L 09/03/21 21:55 NT-Pro-B Natriuret Pep 74 pg/mL (0-125) 09/03/21 16:15 Total Protein 7.3 g/dL (6.6-8.7) 09/04/21 01:21 Albumin 4.4 g/dL (3.5-5.2) 09/04/21 01:21 Globulin 2.9 g/dL (1.3-4.6) 09/04/21 01:21 Triglycerides 148 mg/dL (0-150) 09/03/21 16:15 Cholesterol 270 mg/dL (0-200) H 09/03/21 16:15 LDL Cholesterol, Calc 129 mg/dL (50-129) 09/03/21 16:15 HDL Cholesterol 111 mg/dL (60-100) H 09/03/21 16:15 LDL/HDL Ratio 1.16 RATIO (0.00-3.22) 09/03/21 16:15 Cholesterol/HDL Ratio 2.43 mg/dL (1.0-5.00) 09/03/21 16:15 Procalcitonin 0.10 ng/mL (0-0.5) 09/03/21 16:15 TSH 0.76 uIU/mL (0.27-4.20) 09/03/21 16:15 Prolactin 16.94 ng/mL (4.0-15.2) H 09/04/21 01:24 Urine Color Yellow (Yellow) 09/03/21 18:45 Urine Appearance Clear (CLEAR) 09/03/21 18:45 Urine pH 5 (5-7) 09/03/21 18:45 Ur Specific [facility] 1.010 (1.005-1.030) 09/03/21 18:45 Urine Protein Trace (Negative) 09/03/21 18:45 Urine Glucose (UA) Norm (Normal) 09/03/21 18:45 Urine Ketones Negative (Negative) 09/03/21 18:45 Urine Blood 3+ (Negative) H 09/03/21 18:45 Urine Nitrate Negative (Negative) 09/03/21 18:45 Urine Bilirubin Neg (Negative) 09/03/21 18:45 Urine Urobilinogen Norm mg/dL (Negative) 09/03/21 18:45 Ur Leukocyte Esterase Negative (Negative) 09/03/21 18:45 Urine RBC 15-25 /hpf (0-2) H 09/03/21 18:45 Urine WBC 5-10 /hpf (0-5) H 09/03/21 18:45 Ur Squamous Epith Cells 0-4 /hpf (0-5) H 09/03/21 18:45 Amorphous Sediment Not Reportable 09/03/21 18:45 Urine Bacteria Trace /hpf (NONE) 09/03/21 18:45 Vitals Last Vital Signs Temp 99.1 F 09/05/21 04:00 Pulse 94 09/05/21 06:00 Resp 17 09/05/21 04:00 BP 120/78 09/05/21 04:00 Pulse Ox 92 09/05/21 04:00 Discharge Plan Discharge Patient Disposition: Home Condition: Stable Prescriptions: New Coreg 6.25 mg tablet 6.25 mg PO BID Qty: 60 0RF Rx Instructions: must administer with a meal/food potassium chloride 20 mEq tablet extended release 20 meq PO DAILY Qty: 14 0RF magnesium 200 mg tablet 200 mg PO BID Qty: 30 0RF Continued aspirin 325 mg tablet 325 mg PO QAM 0RF Hold Instructions: Resume on 01/19/21. isosorbide mononitrate 30 mg tablet extended release 24 hr 30 mg PO QAM Qty: 90 3RF tamsulosin 0.4 mg capsule 0.4 mg PO BEDTIME 0RF trazodone 100 mg tablet 100 mg PO BEDTIME PRN (Reason: insomnia) 0RF Vitamin C 500 mg Tablet 500 mg PO DAILY 0RF amlodipine 10 mg tablet 5 mg PO QAM 0RF zinc 50 mg Tablet 50 mg PO DAILY 0RF Vitamin D3 25 mcg (1,000 unit) Tablet 25 mcg PO DAILY 0RF Vitamin B-12 1 tab PO DAILY 0RF enalapril maleate 20 mg tablet 40 mg PO QAM 0RF ondansetron HCl 4 mg tablet 4 mg PO Q8H PRN (Reason: Nausea And Vomiting) 0RF duloxetine 30 mg capsule,delayed release(DR/EC) 90 mg PO QAM 0RF Discontinued carvedilol 12.5 mg tablet 12.5 mg PO BID Qty: 180 4RF Hold Instructions: Resume on 01/12/21. Discharge Orders: Discharge Order (Routine); Ordered 09/05/21 Ordered By: Donis Ramey Referrals: Eh Haddad MD [Primary Care Provider] - 09/12/21 10:00 am Ritu Blanco FNP [Nurse Practitioner] - 09/12/21 12:45 pm Discharge Diet: Cardiac Discharge Activity: Increase activity as tolerated Patient Instructions: Potassium Chloride (By mouth), Carvedilol (By mouth), Magnesium (By mouth), Syncope, Chest Pain (GEN), Opioid Safety Activity Restrictions/Additional Instructions: COME TO HEART CARE CLINIC FOR HEART MONITOR BEFORE 3:00 TODAY Discharge Attestations Time Spent in Discharge Care*: less than 30 min Status at Discharge: Cognitive status at discharge: cognitively intact , Behavioral status at discharge: cooperative , Quality Metrics Clinical Quality Measures [ No reported AMI, CVA or VTE this stay] Coding Level of Care Code Acute Chg FW DC note Diagnoses Syncope and collapse R55 Chest pain R07.9 Hypokalemia E87.6 Hypomagnesemia E83.42
[2021-09-05] MEDS: amlodipine 5 mg Tablet PO (09:27)
[2021-09-05] MEDS: pantoprazole DR 40 mg Tablet PO (09:27)
[2021-09-05] MEDS: tamsulosin 0.4 mg Capsule PO (09:27)
[2021-09-05] MEDS: carvedilol 12.5 mg Tablet PO (09:27)
[2021-09-05] MEDS: aspirin 81 mg EC Tablet PO (09:27)
[2021-09-05 09:36] VITALS: PULSE 94
--- NOTE | 2021-09-05 09:39 | DCPLANNER ---
Patient is to discharge home. Educations given, all questions answered. Patients medications were given at bedside. Patient was taken downstairs via wheelchair.
== END 2021-09-05 09:40 | disposition home or self-care (01) ==
LOC: ER 17:56 → ER IP 21:06 → MEDSURG 09-04 17:12
PROVIDERS: Family Medicine; Admitting Provider Student in an Organized Health Care Education/Training Program; Emergency Provider Family Medicine; PCP Internal Medicine; Visit Provider Internal Medicine
DX: R55 Syncope and collapse (principal); R07.9 Chest pain, unspecified; E87.6 Hypokalemia; E83.42 Hypomagnesemia; I10 Essential (primary) hypertension; I25.10 Atherosclerotic heart disease of native coronary artery without angina pectoris; Z85.038 Personal history of other malignant neoplasm of large intestine; Z90.49 Acquired absence of other specified parts of digestive tract; I27.20 Pulmonary hypertension, unspecified; I65.23 Occlusion and stenosis of bilateral carotid arteries; I44.0 Atrioventricular block, first degree; I45.10 Unspecified right bundle-branch block; Z79.82 Long term (current) use of aspirin; E78.2 Mixed hyperlipidemia; E78.00 Pure hypercholesterolemia, unspecified; Z98.1 Arthrodesis status; N20.0 Calculus of kidney; N17.9 Acute kidney failure, unspecified
CPT/HCPCS: 36415; 70450; 71045; 71275; 78452; 80048; 80053; 80061; 81001; 82550; 83605; 83735; 83880; 84100; 84145; 84146; 84443; 84484; 85025; 85378; 87086; 93005; 93017; 93306; 93880; 94664; 96360; 96361; 99285; A9500; G0378; J2405; J2785; J3475; J3480; J7030; Q9967

== ENCOUNTER → 2021-09-16 09:30 | Outpatient (BNVA) | payer MEDICARE, OTHER, SELFPAY | PROVIDERS: PCP Internal Medicine; Visit Provider Nurse Practitioner Family | DX: Z09 Encounter for follow-up examination after completed treatment for conditions other than malignant neoplasm (principal); R55 Syncope and collapse | CPT/HCPCS: 80048; 83735 ==

== ENCOUNTER → 2021-12-12 14:22 | Outpatient (BNVA) | payer MEDICARE, OTHER, SELFPAY | PROVIDERS: PCP Internal Medicine; Visit Provider Internal Medicine | DX: E87.6 Hypokalemia (principal); R55 Syncope and collapse; C18.9 Malignant neoplasm of colon, unspecified; G47.00 Insomnia, unspecified | CPT/HCPCS: 80048 ==

== ENCOUNTER 2021-12-30 07:33 | Day surgery (SDC) | payer MEDICARE, OTHER, SELFPAY ==
[2021-12-26 13:59] VITALS: BMI 29.4
[2021-12-30 08:00] VITALS: BP 180/88; PULSE 69; RESP 18; TEMP 36.8; O2SAT 95
[2021-12-30] MEDS: sodium chloride 0.9% 1,000 ML 30 ML IV (08:07)
--- NOTE | 2021-12-30 08:09 | W.PM.OPSFHP ---
Same Day Surgery H&P Indication for Procedure/HPI DATE OF PROCEDURE: December 30, 2021 CHIEF COMPLAINT/INDICATIONFOR SURGICAL PROCEDURE: history of colon cancer PREOP DIAGNOSIS: GERD. History of colon cancer PLANNED PROCEDURE: Operation Date: 12/30/21 09:15 Proposed Procedures s EGD and Colonoscopy [id number] ,C18.9(Not Applicable) - Eh Haddad MD p Colonoscopy 78630(Not Applicable) - Eh Haddad MD Medications/Allergies* Home Medications Medication Instructions Recorded Confirmed Type aspirin 325 mg tablet 325 mg PO QAM tab 08/10/19 12/30/21 History Vitamin B-12 1 tab PO DAILY 09/04/21 12/30/21 History amlodipine 10 mg tablet 5 mg PO QAM 09/04/21 12/30/21 History ascorbic acid (vitamin C) 500 mg 500 mg PO DAILY 09/04/21 12/30/21 History tablet (Vitamin C) cholecalciferol (vitamin D3) 25 25 mcg PO DAILY 09/04/21 12/30/21 History mcg (1,000 unit) tablet (Vitamin D3) duloxetine 30 mg capsule,delayed 90 mg PO QAM 09/04/21 12/30/21 History release enalapril maleate 20 mg tablet 40 mg PO QAM 09/04/21 12/30/21 History ondansetron HCl 4 mg tablet 4 mg PO Q8H PRN 09/04/21 12/30/21 History zinc 50 mg tablet 50 mg PO DAILY 09/04/21 12/30/21 History magnesium glycinate-mag oxide 120 mg PO DAILY 12/26/21 12/30/21 History trazodone 150 mg tablet 300 mg PO BEDTIME PRN 12/26/21 12/30/21 History Allergies/Adverse Reactions Allergy/AdvReac Type Severity Reaction Status Date / Time No Known Allergies Allergy Verified 12/26/21 13:59 Current Medications: Generic Name Dose Route Start Last Admin Trade Name Freq PRN Reason Stop Dose Admin Sodium Chloride 1,000 mls @ 30 mls/hr 12/30/21 08:00 12/30/21 08:07 Sodium Chloride 0.9% IV 12/31/21 07:59 30 mls/hr .Q24H THA Administration Pertinent History/Comorbid Conditions* Medical History (Updated 12/12/21 @ 14:19 by Eh Haddad MD) Acute renal failure Atherosclerosis of coronary artery of [place] heart without angina pectoris Had Cardiac cath in 2018- mild CAD Bilateral renal stones CAD (coronary artery disease) Cardiac ischemia Chest pain Colon cancer T3 N0 M0 hepatic flexure 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 Erectile dysfunction Essential hypertension Gout Lumbar disc disease with radiculopathy Mixed hyperlipidemia Nephrolithiasis Prostate cancer screening Pulmonary hypertension Pure hypercholesterolemia Syncope and collapse Surgical History (Updated 09/06/21 @ 00:00 by ) H/O carpal tunnel repair H/O esophagogastroduodenoscopy H/O lithotripsy History of cataract surgery History of fusion of cervical spine C4-C7 ACDFF, with C6 corpectomy; 2002; [facility] C3-C4 ACDFF; 01/28/2018; [facility] History of lumbar surgery Left L4-L5, L5-S1 hemilaminotomy/discectomy/foraminotomy; 04/07/2019; [facility]. Right L3-L4 and reexploration left L4-L5 laminotomy/discectomy, [place]03[place] [facility] [place] Hx of cardiac catheterization Hx of cholecystectomy S/P bilateral inguinal hernia repair S/P right hemicolectomy (12/17/20) Status post colonoscopy Family History (Updated 11/29/20 @ 10:49 by Luisana Julien RN) Father Diabetes Mother Emphysema lung Father Lung disease Father Cancer Brother Stomach Father Mother Hypertension Mother Social History Smoking and tobacco status: never smoked Second hand smoke exposure: No Alcohol intake: current Alcohol intake frequency: few times a week Lives independently: Yes Marital status: Current occupational status: retired History of recent travel: No Pertinent Exam Findings alert, oriented x 3, clear to auscultation bilaterally, regular rate & rhythm, operative site marked and procedure specific exam findings Recommendations Surgery/Procedure today Coding Level of Care Code Acute Iron Cutter for 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
--- NOTE | 2021-12-30 08:55 | P.ANESASSM_ITS ---
Pre-Anesthetic Assessment Height/Weight: Height 1.78 m Weight 92.986 kg Temp Pulse Resp BP Pulse Ox 98.2 F 69 18 180/88 95 12/30/21 08:00 12/30/21 08:00 12/30/21 08:00 12/30/21 08:00 12/30/21 08:00 Preop Diagnosis: GERD. History of colon cancer Operation Date: 12/30/21 09:15 Proposed Procedures s EGD and Colonoscopy [id number] ,C18.9(Not Applicable) - Eh Haddad MD p Colonoscopy [id number](Not Applicable) - Eh Haddad MD Familial anesthetic complications: None Was Beta Nicola taken within 24 hours: Yes Was Clonidine taken within 24 hours: N/A Last intake: Intake Last Liquid Date 12/29/21 Last Liquid Time 23:30 Last Solid Date 12/28/21 Last Solid Time 18:00 Social Alcohol and No alcohol Exam alert, oriented x 3, clear to auscultation bilaterally and regular rate & rhythm Airway Mallampati: Class III Dentition: full Pulmonary hx rib fractures CV/HEM Stable Angina (atypical), Coronary Artery Disease (mild) and Hypertension GI Gastroesophageal Reflux Disease hx colon cancer Anesthetic Plan ASA status: 3 Anesthesia: MAC Risk of > 500 ml blood loss (7ml/kg in children): No Medications/Allergies Home Medications Medication Instructions Recorded Confirmed Last Taken Type aspirin 325 mg tablet 325 mg PO QAM tab 08/10/19 12/30/21 12/27/21 History Vitamin B-12 1 tab PO DAILY 09/04/21 12/30/21 12/29/21 History amlodipine 10 mg tablet 5 mg PO QAM 09/04/21 12/30/21 12/29/21 History ascorbic acid (vitamin C) 500 mg 500 mg PO DAILY 09/04/21 12/30/21 12/29/21 History tablet (Vitamin C) carvedilol 6.25 mg tablet (Coreg) 6.25 mg PO BID #60 tab 09/04/21 12/30/21 12/30/21 06:00 Rx cholecalciferol (vitamin D3) 25 25 mcg PO DAILY 09/04/21 12/30/21 12/29/21 History mcg (1,000 unit) tablet (Vitamin D3) duloxetine 30 mg capsule,delayed 90 mg PO QAM 09/04/21 12/30/2122 History release enalapril maleate 20 mg tablet 40 mg PO QAM 09/04/21 12/30/21 12/29/21 History ondansetron HCl 4 mg tablet 4 mg PO Q8H PRN 09/04/21 12/30/21 12/28/21 History potassium chloride 20 mEq 20 meq PO DAILY #14 tab 09/04/21 12/30/21 12/29/21 Rx tablet,extended release zinc 50 mg tablet 50 mg PO DAILY 09/04/21 12/30/21 12/29/21 History tamsulosin 0.4 mg capsule 0.4 mg PO BEDTIME #90 cap 09/24/21 12/30/21 12/29/21 Rx isosorbide mononitrate 30 mg 30 mg PO QAM #90 tab 11/06/21 12/30/21 12/29/21 Rx tablet,extended release 24 hr magnesium glycinate-mag oxide 120 mg PO DAILY 12/26/21 12/30/21 12/29/21 History trazodone 150 mg tablet 300 mg PO BEDTIME PRN 12/26/21 12/30/21 12/29/21 History Allergies Allergy/AdvReac Type Severity Reaction Status Date / Time No Known Allergies Allergy Verified 12/26/21 13:59 Current Medications Generic Name Dose Route Start Last Admin Trade Name Freq PRN Reason Stop Dose Admin Sodium Chloride 1,000 mls @ 30 mls/hr 12/30/21 08:00 12/30/21 08:07 Sodium Chloride 0.9% IV 12/31/21 07:59 30 mls/hr .Q24H THA Administration PFSH Anesthesia Medical History (Updated 12/12/21 @ 14:19 by Eh Haddad MD) Acute renal failure Atherosclerosis of coronary artery of [place] heart without angina pectoris Had Cardiac cath in 2018- mild CAD Bilateral renal stones CAD (coronary artery disease) Cardiac ischemia Chest pain Colon cancer T3 N0 M0 hepatic flexure 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 Erectile dysfunction Essential hypertension Gout Lumbar disc disease with radiculopathy Mixed hyperlipidemia Nephrolithiasis Prostate cancer screening Pulmonary hypertension Pure hypercholesterolemia Syncope and collapse Surgical History H/O carpal tunnel repair H/O esophagogastroduodenoscopy H/O lithotripsy History of cataract surgery History of fusion of cervical spine C4-C7 ACDFF, with C6 corpectomy; 2002; [facility] C3-C4 ACDFF; 01/28/2018; [facility] History of lumbar surgery Left L4-L5, L5-S1 hemilaminotomy/discectomy/foraminotomy; 04/07/2019; [facility]. Right L3-L4 and reexploration left L4-L5 [place] [facility] [place]x of cardiac catheterization Hx of cholecystectomy S/P bilateral inguinal hernia repair S/P right hemicolectomy (12/17/20) Status post colonoscopy Family History Brother Cancer Stomach Father Emphysema lung Lung disease Cancer Mother Hypertension Cancer Diabetes Social History (Updated 12/12/21 @ 13:51 by Pia Salomon) Smoking and tobacco status: never smoked Second hand smoke exposure: No Alcohol intake: current Alcohol intake frequency: few times a week Lives independently: Yes Marital status: Current occupational status: retired History of recent travel: No Data Anesthesia Cardiac Studies: Echocardiogram 09/04/21 Echocardiogram Ultrasound 12/18/20 Sestamibi Stress Test (Cardiology) 09/04/21 Cardiac Event Monitor 09/05/21
[2021-12-30 10:01] VITALS: BP 137/71; PULSE 69; RESP 16; TEMP 36.3; O2SAT 97
[2021-12-30 10:15] VITALS: BP 170/78; PULSE 58; RESP 18; O2SAT 97
--- NOTE | 2021-12-30 14:08 | ANE.PACU2 ---
Inpatient post-anesthesia follow up: Airway intact: Yes Vital signs: Temperature 97.3 F Pulse Rate 58 Respiratory Rate 18 Blood Pressure 170/78 Pulse Oximetry 97 Oxygen Delivery Me thod Room Air Oxygen Flow Rate Fraction of Inspir ed Oxygen Hydration adequate: Yes Nausea and vomiting: No Pain level: 1 Mental status: Baseline
[2021-12-31 06:11] LABS: H. Pylori / CLO Test Negative
== END 2021-12-30 10:30 | disposition home or self-care (01) ==
PROVIDERS: PCP Internal Medicine; Visit Provider Internal Medicine
PROC: 0DJ08ZZ Inspection of Upper Intestinal Tract, Via Natural or Artificial Opening Endoscopic (ICD-10-PCS; CPT 43235; principal; 2021-12-30 09:15)
PROC: 0DJD8ZZ Inspection of Lower Intestinal Tract, Via Natural or Artificial Opening Endoscopic (ICD-10-PCS; CPT 45378; 2021-12-30 09:15)
DX: Z86.010 Personal history of colon polyps (principal); K63.89 Other specified diseases of intestine; K20.90 Esophagitis, unspecified without bleeding; B37.9 Candidiasis, unspecified; K29.70 Gastritis, unspecified, without bleeding; K21.9 Gastro-esophageal reflux disease without esophagitis; Z79.82 Long term (current) use of aspirin; I25.10 Atherosclerotic heart disease of native coronary artery without angina pectoris; E78.2 Mixed hyperlipidemia; E78.00 Pure hypercholesterolemia, unspecified
CPT/HCPCS: 43239; 87077; G0121; J2704; J7030

== ENCOUNTER 2023-07-15 14:40 | Outpatient (CLI) | payer MEDICARE, OTHER, SELFPAY ==
--- NOTE | 2023-07-15 14:51 | XRR_ITS ---
PROCEDURE INFORMATION: Exam: XR Bilateral Knees, Standing, Anteroposterior Exam date and time: 07/15/2023 3:06 PM Age: 72 years old Clinical indication: Pain; Knee; Right TECHNIQUE: Imaging protocol: Radiologic exam of the bilateral knees. Views: Standing frontal. COMPARISON: No relevant prior studies available. FINDINGS: Bones/joints: No fracture or other acute abnormality. There is bilateral chondrocalcinosis. There is mild medial compartment joint space narrowing bilaterally Soft tissues: Normal. XR/[place] [id number] IMPRESSION: Nonacute findings.
== END 2023-07-15 14:41 | disposition home or self-care (01) ==
LOC: RAD 14:43
PROVIDERS: PCP Internal Medicine; Visit Provider Internal Medicine
DX: M25.561 Pain in right knee (principal); M25.562 Pain in left knee
CPT/HCPCS: 73565